=== PATIENT | female | born 1960 | race Caucasian/White ===

== ENCOUNTER 2017-07-12 00:38 | Emergency (ER) | payer OTHER, SELFPAY ==
[2017-07-12 00:39] VITALS: BP 141/87; PULSE 99; RESP 18; TEMP 36.4; O2SAT 96; BMI 19.0
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
[2017-07-12 01:25] VITALS: BP 112/76; PULSE 95; RESP 18; TEMP 36.7; O2SAT 96
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
== END 2017-07-12 01:36 ==
LOC: ER 01:36
PROVIDERS: Emergency Provider Emergency Medicine
DX: Z02.89 Encounter for other administrative examinations (principal); F17.210 Nicotine dependence, cigarettes, uncomplicated; V89.0XXA Person injured in unspecified motor-vehicle accident, nontraffic, initial encounter
CPT/HCPCS: 99283

== ENCOUNTER 2018-01-04 09:26 | Inpatient (IN) ==
--- NOTE | 2018-01-04 09:11 | Emergency Department Note ---
ED Disposition Clinical Impression: Pneumonia, COPD (chronic obstructive pulmonary disease) Disposition: Still a Patient Condition on Discharge: Good - Critical Care Critical Care Time: No Attestation: On , the high probability of a clinically significant, sudden or life threatening deterioration of the following system(s) required my full and direct attention, intervention and personal management. The time I documented below is in addition to time spent performing reported procedures but includes the following listed in this critical care notation. Medical Decision Making - Medical Records MR Comment: pt with BLL pneumonia. stats 89 90 at rest, admit. [id number] call out to service MD Suze Montemayor Inquiry Pt receiving controlled substance: No Vital Signs: 01/04/18 08:54 01/04/18 09:10 01/04/18 09:54 Pulse Rate 66 Pulse Rate [Right Radial] 84 89 Respiratory Rate 18 Blood Pressure [Right Arm] 101/59 106/66 Blood Pressure Mean [Right Arm] 73 79 Blood Pressure Source [Right Arm] Automatic Cuff Automatic Cuff Blood Pressure Position [Right Arm] Sitting Sitting 02 Sat by Pulse Oximetry 97 93 L Oxygen Delivery Method Room Air Room Air 01/04/18 10:05 Pulse Rate Pulse Rate [Right Radial] 94 H Respiratory Rate Blood Pressure [Right Arm] 108/66 Blood Pressure Mean [Right Arm] 80 Blood Pressure Source [Right Arm] Automatic Cuff Blood Pressure Position [Right Arm] Sitting 02 Sat by Pulse Oximetry 93 L Oxygen Delivery Method Room Air - Lab Data Lab Results 01/04/18 08:55: WBC 15.2 H, RBC 4.11 L, Hgb 11.7 L, Hct 36.7 L, MCV 89.2, MCH 28.5, MCHC 32.0, RDW 14.6, Plt Count 201, MPV 7.6, Neut % (Auto) 86.6 H, Lymph % (Auto) 8.6 L, [place] % (Auto) 4.4, Eos % (Auto) 0.1, Baso % (Auto) 0.3, Neut # (Auto) 13.2 H, Lymph # (Auto) 1.3, [place] # (Auto) 0.7, Eos # (Auto) 0.0, Baso # (Auto) 0.0, Total Counted 100, Neutrophils % (Manual) 88 H, Lymphocytes % (Manual) 10, Monocytes % (Manual) 2, Platelet Estimate Normal, RBC Morphology Normal 01/04/18 08:55: Sodium 140, Potassium 3.3 L, Chloride 104, Carbon Dioxide 27, Anion Gap 12.3, BUN 13, Creatinine 0.95, Estimated Creat Clear 60, Estimated GFR 60, Est GFR ( Amer) 73, Glucose 100, Calcium 8.6, Troponin I < 0.02 01/04/18 08:55: Lactate 0.7 Result diagrams: 01/04/18 08:55 01/04/18 08:55 Orders (Tests/Meds): ED MEDICATIONS Generic Name Dose Route Start Last Admin Trade Name Freq PRN Reason Stop Dose Admin Levofloxacin/Dextrose 750 mg in 150 mls @ 100 mls/hr 01/04/18 11:30 Levofloxacin 750mg/150ml Premix IV 01/18/18 11:29 Q24H ALEX Protocol Discontinued Medications Generic Name Dose Route Start Last Admin Trade Name Freq PRN Reason Stop Dose Admin Albuterol/Ipratropium 3 ml 01/04/18 09:06 01/04/18 09:10 Duoneb 3ml [facility] 01/04/18 09:07 3 ml ONCE ONE Administration Albuterol/Ipratropium 3 ml 01/04/18 09:07 01/04/18 09:20 Duoneb 3ml [facility] 01/04/18 09:08 3 ml ONCE ONE Administration Methylprednisolone Sodium Succinate 125 mg 01/04/18 09:05 01/04/18 09:16 Solu-Medrol 125mg/2ml Vial IV 01/04/18 09:06 125 mg ONCE ONE Administration Potassium Chloride 40 meq 01/04/18 11:28 Klor-Con 20meq Tablet PO 01/04/18 11:29 ONCE ONE ORDERS Category Date Time Status Flu A&B Antigens, Rapid [Rapid Influenza A&B Antigens] Lab 01/04/18 09:11 Ordered Stat UA [Urinalysis and Microscopic] Stat Lab 01/04/18 09:06 Ordered Blood Culture Stat Micro 01/04/18 08:55 Received - ECG Data Tracing #1 ER EKG read by myself shows normal sinus rhythm rate of 86, normal axis, no QT prolongation, nonspecific EKG General Adult HPI - General Chief complaint: Shortness of Breath/Dyspnea Stated complaint: soa Time Seen by Provider: 01/04/18 09:08 Mode of Arrival: EMS Limitations: No Limitations Description of Symptoms (Recalled from ER Triage Doc. by RN): complaint of soa and pain with breathing for 1 month - History of Present Illness HPI narrative: Patient states she says shortness of breath for the past month she has a history of COPD. He complains of cough for the past several days productive of green and yellow phlegm and some feverishness she also states that she has had some right flank pain and that she has history of kidney stone and was worried that her kidney stones are acting up the right flank pain was mostly yesterday she states now that she has whole body ache moderate severity no radiation. - Related Data Home Medications Medication Instructions Recorded Confirmed No Known Home Medications 07/12/17 01/04/18 Allergies Allergy/AdvReac Type Severity Reaction Status Date / Time No Known Allergies Allergy Verified 07/12/17 00:51 [facility] History I have reviewed the patient's past medical history: Yes Amputation: No Fractures: No - Social History Educational Level: Completed High School Smoking Status: Current every day smoker Tobacco Type: cigarettes Alcohol Intake: never Alcohol Intake Frequency:: holidays/special occasions only Substance Use Type: marijuana - Psychiatric History Expresses thoughts of harming self/others: None Suicide Plan Description: No Plan ROS Obtained: Yes All systems reviewed & no additional complaints Physical Exam General Appearance: Nontoxic Head: Normocephalic, without obvious abnormality, atraumatic. Eyes: conjunctiva/corneas clear ENT: Mucous membranes moist. Neck: No jugular venous distention. Cardiac: regular rate and rhythm Lungs: Wheezes rhonchi to auscultation bilaterally Abdomen: Nontender, Nondistended, positive bowel sounds, no rebound : right CVA tenderness Extremities: no edema Musculoskeletal: No chest wall tenderness Skin: No rashes or lesions to exposed skin. Neurologic: Alert. No gross focal deficits Psychiatric: Mildly anxious affect - General General appearance: alert - Respiratory Respiratory exam: Present: wheezes - Cardiovascular Cardiovascular exam: Present: regular rate - Neurological Exam Neurological exam: Present: alert
[2018-01-04 09:25] LABS: Basophils % 0.3 % (0.1-2.0); Eosinophils % 0.1 % (0.1-12.0); Hematocrit 36.7 % (37.0-47.0); Hemoglobin 11.7 g/dL (12.2-16.2); Lymphocytes # 1.3 K/mm3 (0.7-4.5); Lymphocytes % 8.6 K/mm3 (10-50); Mean Corpuscular Hemoglobin 28.5 pg (27.0-31.2); Mean Corpuscular Volume 89.2 fl (81-99); Mean Platelet Volume 7.6 fl (7.4-10.4); Monocytes # 0.7 K/mm3 (0.1-1.0); Monocytes % 4.4 % (1.7-9.3); Neutrophils # 13.2 K/mm3 (1.8-7.8); Neutrophils % 86.6 % (37.0-80.0); Platelet Count 201 K/mm3 (142-424); Red Blood Count 4.11 M/mm3 (4.20-5.40); Red Cell Distribution Width 14.6 % (11.5-17.5); White Blood Count 15.2 K/mm3 (4.8-10.8)
[2018-01-04 09:36] LABS: Anion Gap 12.3 mEq/L (5-15); Blood Urea Nitrogen 13 mg/dL (7-18); Calcium 8.6 mg/dL (8.5-10.1); Carbon Dioxide 27 mmol/L (21.0-32.0); Chloride 104 mmol/L (98-107); Glucose 100 mg/dL (74-106); Potassium 3.3 mmoL/L (3.5-5.1); Sodium 140 mmol/L (136-145)
[2018-01-04 09:43] LABS: Lymphocytes % 10 % (10-50); Monocytes % 2 % (2-9); Neutrophils % 88 % (42-76); Total Cells Counted 100
[2018-01-04 09:44] LABS: RBC Morphology Normal
--- NOTE | 2018-01-04 12:22 | Pharmacy Consult Notes ---
[facility] Pharmacy VTE Monitoring - Patient Demographics Admission date: 01/04/18 Report Date: 01/04/18 Time: 12:21 Allergies/Adverse Reactions: Patient Allergies No Known Allergies Allergy (Verified 07/12/17 00:51) Height: 1.8 m Weight: 58.967 kg Patient Problems: Current Active Problems Pneumonia (Acute) COPD (chronic obstructive pulmonary disease) (Acute) - VTE Risk Labs: VTE Related Lab Results Hgb 11.7 g/dL (12.2-16.2) L 01/04/18 08:55 Hct 36.7 % (37.0-47.0) L 01/04/18 08:55 Plt Count 201 K/mm3 (142-424) 01/04/18 08:55 BUN 13 mg/dL (7-18) 01/04/18 08:55 Creatinine 0.95 mg/dL (0.55-1.02) 01/04/18 08:55 Estimated Creat Clear 60 mL/min (0-300) 01/04/18 08:55 Clinical Trial Participant: No - Prophylaxis VTE Prophylaxis Ordered?: Yes Types of VTE Prophylaxis: TEDS Knee High
--- NOTE | 2018-01-04 14:10 | History & Physical Report ---
*Admission Date: 01/04/18 *Chief complaint: SOA, chest and back pain, abdominal pain *History of present illness: Ms. Turner is a 57yo female who states she has been feeling poorly for 1 month. She does not currently have a PCP but does have an appt scheduled with Dr. Carr. She has had shortness of breath for the past month and has a history of COPD. She then developed a cough for the past several days productive of green and yellow phlegm and and began running fevers. She also states that she has had some right flank pain and diffuse abdominal pain. She states her was in a coma for pneumonia and when he woke up, he left her. She states she has been very upset and thought her abdominal pain was d/t her anxiety. She has been unable to eat or drink and has had nausea and vomiting off and on. She states she has probably lost 20lb in the past month. She began feeling so poorly she called 911 to bring her to the ER. She is upset because she wants something for pain. She states a friend gave her a Tylenol #3 yesterday and that is the only thing that's helped. She was found to have pneumonia in the ER and will be admitted for further evaluation and treatment. [facility] History Medical History: Reports:: Cancer (cervical), Chronic Obstructive Pulmonary Disease (COPD), Kidney Stones Other Surgeries: Yes: Cancer Surgery, , Ureter Stent Amputation: No Fractures: No Comment: Cone bx of cervical cancer - *Social History Educational Level: Completed High School Smoking Status: Current every day smoker Tobacco Type: cigarettes Alcohol Intake: never Alcohol Intake Frequency:: holidays/special occasions only Substance Use Type: marijuana - Psychiatric History Expresses thoughts of harming self/others: None Suicide Plan Description: No Plan *Family Hx:: Cancer, Diabetes, Hyperlipidemia, Hypertension Review of Systems - Constitutional Reports body ache(s), Reports chills, Reports fatigue, Reports fever(s), Reports weight loss - Eyes Denies blurry vision, Denies double vision - ENT Reports nasal congestion, Reports sore throat - *Cardiovascular Reports chest pain, Denies rapid, pounding, or irregular heartbeat - *Respiratory Reports chest congestion, Reports cough, Reports shortness of breath, Reports wheezing - *Gastrointestinal Reports abdominal pain, Reports loose stools, Reports nausea, Reports vomiting - *Genitourinary Denies difficulty urinating, Denies painful urination - *Musculoskeletal Reports back pain, Denies joint pain - *Neurologic Reports headache(s), Reports dizziness, Reports weakness Meds Home Medications Medication Instructions Recorded Confirmed Type No Known Home Medications 07/12/17 01/04/18 History Allergies Allergy/AdvReac Type Severity Reaction Status Date / Time No Known Allergies Allergy Verified 07/12/17 00:51 Exam Vital signs and Labs for Last 24 Hours: Temp Pulse Resp BP Pulse Ox 97.6 F 76 20 101/63 96 01/04/18 13:30 01/04/18 13:30 01/04/18 13:30 01/04/18 13:30 01/04/18 13:30 Laboratory Results - last 24 hr 01/04/18 08:55: WBC 15.2 H, RBC 4.11 L, Hgb 11.7 L, Hct 36.7 L, MCV 89.2, MCH 28.5, MCHC 32.0, RDW 14.6, Plt Count 201, MPV 7.6, Neut % (Auto) 86.6 H, Lymph % (Auto) 8.6 L, [place] % (Auto) 4.4, Eos % (Auto) 0.1, Baso % (Auto) 0.3, Neut # (Auto) 13.2 H, Lymph # (Auto) 1.3, [place] # (Auto) 0.7, Eos # (Auto) 0.0, Baso # (Auto) 0.0, Total Counted 100, Neutrophils % (Manual) 88 H, Lymphocytes % (Manual) 10, Monocytes % (Manual) 2, Platelet Estimate Normal, RBC Morphology Normal 01/04/18 08:55: Sodium 140, Potassium 3.3 L, Chloride 104, Carbon Dioxide 27, Anion Gap 12.3, BUN 13, Creatinine 0.95, Estimated Creat Clear 60, Estimated GFR 60, Est GFR ( Amer) 73, Glucose 100, Calcium 8.6, Troponin I < 0.02 01/04/18 08:55: Lactate 0.7 I & O for Last 24 hours: Intake & Output 01/02/18 01/03/18 01/04/18 01/05/18 11:59 11:59 11:59 11:59 Intake Total 1000 / 1000 Balance 1000 / 1000 Weight 130 lb 134 lb - Constitutional agitated - *Routine HEENT Exam Head: Present: normocephalic Eye: Present: EOMI, PERRL ENT: Present: mucous membranes dry - *Routine Neck Exam Present: supple, full ROM. Absent: carotid bruit - *Routine Respiratory Exam Present: decreased breath sounds (in bilateral bases, faint rhonchi in the right base) - *Routine Cardiovascular Exam Present: RRR - *Routine Abdominal Exam Present: soft, normoactive bowel sounds, tenderness (diffusely ttp) - *Routine Extremities Exam Absent: cyanosis, clubbing, edema - *Routine Skin Exam Present: warm. Absent: rash - *Routine Neurological Exam Present: alert, oriented X3 - Routine Psychiatric Exam Present: anxious H&P: Result - Impressions CXR - Bilateral pneumonia with emphysema/COPD CT abd/pelvis 1. Bilateral pneumonia in the lung bases. 2. Nonobstructing bilateral renal calculi. 3. There are multiple unopacified bowel loops present within the abdomen/pelvis which could obscure or mimic pathology. If symptoms persists, consider repeating exam with IV and oral contrast administration 4. Nonrotation of the bowel with small bowel on the right and large bowel On the left with constipation Assessment and Plan (1) Pneumonia Current visit: Yes Status: Acute Category: Medical Code(s): J18.9 - Pneumonia, unspecified organism (2) Abdominal pain Current visit: Yes Status: Acute Category: Medical Code(s): R10.9 - Unspecified abdominal pain (3) Nausea & vomiting Current visit: Yes Status: Acute Category: Medical Code(s): R11.2 - Nausea with vomiting, unspecified (4) Weight loss Current visit: Yes Status: Acute Category: Medical Code(s): R63.4 - Abnormal weight loss (5) COPD (chronic obstructive pulmonary disease) Current visit: Yes Status: Chronic Category: Medical Code(s): J44.9 - Chronic obstructive pulmonary disease, unspecified (6) Hypokalemia Current visit: Yes Status: Acute Category: Medical Code(s): E87.6 - Hypokalemia (7) Diarrhea Current visit: Yes Status: Acute Category: Medical Code(s): R19.7 - Diarrhea, unspecified - Assessment and plan all Dx Assessment and Plan for all problems:: Pt has been started on abx and morphine for pain. Will start on nebs as well some potassium and will get a sputum cx and diarrhea panel.
[2018-01-05 06:20] LABS: Basophils % 0.2 % (0.1-2.0); Lymphocytes # 1.4 K/mm3 (0.7-4.5); Monocytes # 0.5 K/mm3 (0.1-1.0)
[2018-01-05 06:30] LABS: Albumin Level 2.4 gm/dL (3.4-5.0); Albumin/Globulin Ratio 0.7 (1.1-1.8); Anion Gap 11.8 mEq/L (5-15); Bilirubin,Total 0.3 mg/dL (0.2-1.0); Calcium 8.5 mg/dL (8.5-10.1); Globulin 3.5 gm/dl (1.3-3.2); Potassium 3.8 mmoL/L (3.5-5.1); Total Protein,Serum 5.9 gm/dL (6.4-8.2)
[2018-01-05 06:34] LABS: Eosinophils % 0.3 % (0.1-12.0); Hematocrit 32.8 % (37.0-47.0); Lymphocytes % 13.3 K/mm3 (10-50); Mean Corpuscular HGB Conc 31.5 g/dL (31.8-35.4); Mean Corpuscular Hemoglobin 28.8 pg (27.0-31.2); Mean Corpuscular Volume 91.6 fl (81-99); Mean Platelet Volume 8.2 fl (7.4-10.4); Monocytes % 5.2 % (1.7-9.3); Neutrophils # 8.3 K/mm3 (1.8-7.8); Neutrophils % 81.1 % (37.0-80.0); Platelet Count 172 K/mm3 (142-424); Red Blood Count 3.58 M/mm3 (4.20-5.40); Red Cell Distribution Width 14.8 % (11.5-17.5); White Blood Count 10.2 K/mm3 (4.8-10.8)
[2018-01-05 06:36] LABS: Hemoglobin 10.3 g/dL (12.2-16.2)
--- NOTE | 2018-01-05 08:26 | Progress Note ---
Internal Medicine - PN: Subj *Date: 01/05/18 *Time: 08:22 Interval history: Patient states she is feeling slightly better this morning. She still has a cough but it is no longer productive. She is still having pain in her right mid back. She slept off and on throughout the night. She is trying to eat this morning but states she has become nauseated. Exam Vital signs and Labs for Last 24 Hours: Temp Pulse Resp BP Pulse Ox 98.0 F 71 20 97/61 91 L 01/05/18 07:54 01/05/18 07:54 01/05/18 07:54 01/05/18 07:54 01/05/18 07:54 Laboratory Results - last 24 hr 01/04/18 08:55: WBC 15.2 H, RBC 4.11 L, Hgb 11.7 L, Hct 36.7 L, MCV 89.2, MCH 28.5, MCHC 32.0, RDW 14.6, Plt Count 201, MPV 7.6, Neut % (Auto) 86.6 H, Lymph % (Auto) 8.6 L, [place] % (Auto) 4.4, Eos % (Auto) 0.1, Baso % (Auto) 0.3, Neut # (Auto) 13.2 H, Lymph # (Auto) 1.3, [place] # (Auto) 0.7, Eos # (Auto) 0.0, Baso # (Auto) 0.0, Total Counted 100, Neutrophils % (Manual) 88 H, Lymphocytes % (Manual) 10, Monocytes % (Manual) 2, Platelet Estimate Normal, RBC Morphology Normal 01/04/18 08:55: Sodium 140, Potassium 3.3 L, Chloride 104, Carbon Dioxide 27, Anion Gap 12.3, BUN 13, Creatinine 0.95, Estimated Creat Clear 60, Estimated GFR 60, Est GFR ( Amer) 73, Glucose 100, Calcium 8.6, Troponin I < 0.02 01/04/18 08:55: Lactate 0.7 01/04/18 15:52: Influenza Type A Ag Negative, Influenza Type B Ag Negative 01/05/18 05:34: WBC 10.2 D, RBC 3.58 L, Hgb 10.3 L D, Hct 32.8 L, MCV 91.6, MCH 28.8, MCHC 31.5 L, RDW 14.8, Plt Count 172, MPV 8.2, Neut % (Auto) 81.1 H, Lymph % (Auto) 13.3, [place] % (Auto) 5.2, Eos % (Auto) 0.3, Baso % (Auto) 0.2, Neut # (Auto) 8.3 H, Lymph # (Auto) 1.4, [place] # (Auto) 0.5, Eos # (Auto) 0.0, Baso # (Auto) 0.0 01/05/18 05:34: Sodium 142, Potassium 3.8, Chloride 108 H, Carbon Dioxide 26, Anion Gap 11.8, BUN 16, Creatinine 0.89, Estimated Creat Clear 66, Estimated GFR 65, Est GFR ( Amer) 79, Glucose 97, Calcium 8.5, Total Bilirubin 0.3, AST 15, ALT 43, Alkaline Phosphatase 285 H, Total Protein 5.9 L, Albumin 2.4 L, Globulin 3.5 H, Albumin/Globulin Ratio 0.7 L I & O for Last 24 hours: Intake & Output 01/02/18 01/03/18 01/04/18 01/05/18 11:59 11:59 11:59 11:59 Intake Total 2455 / 2455 Output Total 300 / 300 Balance 2155 / 2155 Weight 130 lb 134 lb Microbiology Reports for the Last 24 Hours: Microbiology 01/04/18 18:45 Sputum - Expectorated Sputum Gram Stain - Final 01/04/18 18:45 Sputum - Expectorated Sputum Sputum Culture - Preliminary - Constitutional no acute distress - *Routine Respiratory Exam Present: rhonchi, crackles (bibasilar) - *Routine Cardiovascular Exam Present: RRR - *Routine Abdominal Exam Present: soft, normoactive bowel sounds, tenderness (diffuse) - *Routine Extremities Exam Absent: edema Assessment and Plan (1) Pneumonia Current visit: Yes Status: Acute Category: Medical Code(s): J18.9 - Pneumonia, unspecified organism (2) Abdominal pain Current visit: Yes Status: Acute Category: Medical Code(s): R10.9 - Unspecified abdominal pain (3) Nausea & vomiting Current visit: Yes Status: Acute Category: Medical Code(s): R11.2 - Nausea with vomiting, unspecified (4) Weight loss Current visit: Yes Status: Acute Category: Medical Code(s): R63.4 - Abnormal weight loss (5) COPD (chronic obstructive pulmonary disease) Current visit: Yes Status: Chronic Category: Medical Code(s): J44.9 - Chronic obstructive pulmonary disease, unspecified (6) Hypokalemia Current visit: Yes Status: Acute Category: Medical Code(s): E87.6 - Hypokalemia (7) Diarrhea Current visit: Yes Status: Acute Category: Medical Code(s): R19.7 - Diarrhea, unspecified - Assessment and plan all Dx Assessment and Plan for all problems:: Patient's white blood cell count has normalized as has her potassium. Will start on some Zofran for nausea today. Will await sputum and blood cultures.
--- NOTE | 2018-01-06 08:21 | Progress Note ---
Internal Medicine - PN: Subj *Date: 01/06/18 *Time: 08:17 Interval history: The patient is sitting up in bed watching tv. She reports she did not sleep well last night, declined hs trazodone dose due to side effects when she has taken it in the past. She denies any pain, continues with NPC. She is tearful when relating recent events concerning her . She reports having little appetite and did not eat any breakfast this morning. Exam Vital signs and Labs for Last 24 Hours: Temp Pulse Resp BP Pulse Ox 97.3 F L 74 18 101/56 100 01/06/18 08:03 01/06/18 08:03 01/06/18 08:03 01/06/18 08:03 01/06/18 08:03 I & O for Last 24 hours: Intake & Output 01/03/18 01/04/18 01/05/18 01/06/18 11:59 11:59 11:59 11:59 Intake Total 2455 / 2455 940 / 940 Output Total 300 / 300 100 / 100 Balance 2155 / 2155 840 / 840 Weight 130 lb 134 lb Microbiology Reports for the Last 24 Hours: Microbiology 01/04/18 18:45 Sputum - Expectorated Sputum Gram Stain - Final 01/04/18 18:45 Sputum - Expectorated Sputum Sputum Culture - Preliminary - Constitutional no acute distress Comments: tearful at times - *Routine HEENT Exam Head: Present: normocephalic Eye: Present: PERRL ENT: Present: mucous membranes moist - *Routine Respiratory Exam Comments: CTAB A&P - *Routine Cardiovascular Exam Present: RRR - *Routine Abdominal Exam Present: soft, normoactive bowel sounds. Absent: tenderness, distended, guarding, rigid, organomegaly, mass - *Routine Extremities Exam Present: full ROM, pulses intact. Absent: edema, calf tenderness - *Routine Neurological Exam Present: alert, oriented X3, moving all extremities, normal speech Assessment and Plan (1) Pneumonia Current visit: Yes Status: Acute Category: Medical Code(s): J18.9 - Pneumonia, unspecified organism (2) Abdominal pain Current visit: Yes Status: Acute Category: Medical Code(s): R10.9 - Unspecified abdominal pain (3) Nausea & vomiting Current visit: Yes Status: Acute Category: Medical Code(s): R11.2 - Nausea with vomiting, unspecified (4) Weight loss Current visit: Yes Status: Acute Category: Medical Code(s): R63.4 - Abnormal weight loss (5) COPD (chronic obstructive pulmonary disease) Current visit: Yes Status: Chronic Category: Medical Code(s): J44.9 - Chronic obstructive pulmonary disease, unspecified (6) Hypokalemia Current visit: Yes Status: Acute Category: Medical Code(s): E87.6 - Hypokalemia (7) Diarrhea Current visit: Yes Status: Acute Category: Medical Code(s): R19.7 - Diarrhea, unspecified - Assessment and plan all Dx Assessment and Plan for all problems:: Continue current care. Further per Dr. Duarte.
[2018-01-07 06:59] LABS: Basophils % 0.6 % (0.1-2.0); Eosinophils # 0.1 K/mm3 (0.0-0.4); Eosinophils % 1.9 % (0.1-12.0); Hematocrit 34.8 % (37.0-47.0); Hemoglobin 10.7 g/dL (12.2-16.2); Lymphocytes # 1.5 K/mm3 (0.7-4.5); Lymphocytes % 26.1 K/mm3 (10-50); Mean Corpuscular HGB Conc 30.8 g/dL (31.8-35.4); Mean Corpuscular Hemoglobin 28.3 pg (27.0-31.2); Mean Corpuscular Volume 91.9 fl (81-99); Mean Platelet Volume 7.8 fl (7.4-10.4); Monocytes # 0.4 K/mm3 (0.1-1.0); Monocytes % 7.2 % (1.7-9.3); Neutrophils # 3.6 K/mm3 (1.8-7.8); Neutrophils % 64.2 % (37.0-80.0); Platelet Count 235 K/mm3 (142-424); Red Blood Count 3.79 M/mm3 (4.20-5.40); Red Cell Distribution Width 14.5 % (11.5-17.5); White Blood Count 5.6 K/mm3 (4.8-10.8)
[2018-01-07 07:04] LABS: Calcium 8.5 mg/dL (8.5-10.1)
--- NOTE | 2018-01-07 08:35 | Progress Note ---
Internal Medicine - PN: Subj *Date: 01/07/18 *Time: 08:32 Interval history: "I feel a little better." Still sad over recent psychosocial events. Slept some last night. Still with cough that is a bit more productive. Ribs are "sore". Exam Vital signs and Labs for Last 24 Hours: Temp Pulse Resp BP Pulse Ox 97.5 F L 85 20 113/81 94 L 01/07/18 07:40 01/07/18 07:40 01/07/18 07:40 01/07/18 07:40 01/07/18 08:00 Laboratory Results - last 24 hr 01/07/18 06:20: WBC 5.6 D, RBC 3.79 L, Hgb 10.7 L, Hct 34.8 L, MCV 91.9, MCH 28.3, MCHC 30.8 L, RDW 14.5, Plt Count 235 D, MPV 7.8, Neut % (Auto) 64.2, Lymph % (Auto) 26.1, [place] % (Auto) 7.2, Eos % (Auto) 1.9, Baso % (Auto) 0.6, [place] # (Auto) 3.6, Lymph # (Auto) 1.5, [place] # (Auto) 0.4, Eos # (Auto) 0.1, Baso # (Auto) 0.0 01/07/18 06:20: Sodium 143, Potassium 4.0, Chloride 107, Carbon Dioxide 30, Anion Gap 10.0, BUN 11 D, Creatinine 0.80, Estimated Creat Clear 74, Estimated GFR 74, Est GFR ( Amer) 89, Glucose 94, Calcium 8.5 I & O for Last 24 hours: Intake & Output 01/04/18 01/05/18 01/06/18 01/07/18 11:59 11:59 11:59 11:59 Intake Total 2455 / 2455 1090 / 1090 2264 / 2264 Output Total 300 / 300 100 / 100 100 / 100 Balance 2155 / 2155 990 / 990 2164 / 2164 Weight 130 lb 134 lb 133 lb 15.987 oz Microbiology Reports for the Last 24 Hours: Microbiology 01/04/18 18:45 Sputum - Expectorated Sputum Gram Stain - Final 01/04/18 18:45 Sputum - Expectorated Sputum Sputum Culture - Preliminary Gram Positive Cocci 01/04/18 08:55 Blood Blood Culture - Preliminary NO GROWTH AFTER 48 HOURS 01/04/18 08:55 Blood Blood Culture - Preliminary NO GROWTH AFTER 48 HOURS Radiology Reports for the Last 24 Hours: CXR shows slight improvement in bilateral lower lobe pneumonia - Constitutional Comments: alert, no resp distress. Congested cough. - *Routine Respiratory Exam Comments: coarse BS with bilateral rhochi and few wheezes - *Routine Cardiovascular Exam Present: RRR Assessment and Plan (1) Pneumonia Current visit: Yes Status: Acute Category: Medical Code(s): J18.9 - Pneumonia, unspecified organism (2) Abdominal pain Current visit: Yes Status: Acute Category: Medical Code(s): R10.9 - Unspecified abdominal pain (3) Nausea & vomiting Current visit: Yes Status: Acute Category: Medical Code(s): R11.2 - Nausea with vomiting, unspecified (4) Weight loss Current visit: Yes Status: Acute Category: Medical Code(s): R63.4 - Abnormal weight loss (5) COPD (chronic obstructive pulmonary disease) Current visit: Yes Status: Chronic Category: Medical Code(s): J44.9 - Chronic obstructive pulmonary disease, unspecified (6) Hypokalemia Current visit: Yes Status: Acute Category: Medical Code(s): E87.6 - Hypokalemia (7) Diarrhea Current visit: Yes Status: Acute Category: Medical Code(s): R19.7 - Diarrhea, unspecified (8) Depression with anxiety Current visit: Yes Status: Acute Category: Medical Code(s): F41.8 - Other specified anxiety disorders - Assessment and plan all Dx Assessment and Plan for all problems:: Clinically with some improvement. WBC improved and K+ is normal. Sputum C&S showing Gm + cocci. Will continue current antibiotic pending final cultures. Will give dose of Solumedrol. Encourage OOB activity.
--- NOTE | 2018-01-08 09:53 | Progress Note ---
Internal Medicine - PN: Subj *Date: 01/08/18 *Time: 09:51 Interval history: From a respiratory perspective the patient is feeling much better. Her cough is better. She is breathing easier. Her chest x-ray shows improvement. She talked about her difficulty with her nerves. Her leaving her has been very difficult for her to deal with. She has seen Fina Agarwal in consultation. She asked about medication. Exam Vital signs and Labs for Last 24 Hours: Temp Pulse Resp BP Pulse Ox 97.4 F L 91 H 18 121/72 94 L 01/08/18 08:00 01/08/18 08:00 01/08/18 08:00 01/08/18 08:00 01/08/18 08:00 I & O for Last 24 hours: Intake & Output 01/05/18 01/06/18 01/07/18 01/08/18 11:59 11:59 11:59 11:59 Intake Total 2455 / 2455 1090 / 1090 2414 / 2414 2463 / 2463 Output Total 300 / 300 100 / 100 100 / 100 1500 / 1500 Balance 2155 / 2155 990 / 990 2314 / 2314 963 / 963 Weight 134 lb 133 lb 15.987 oz Microbiology Reports for the Last 24 Hours: Microbiology 01/04/18 18:45 Sputum - Expectorated Sputum Gram Stain - Final 01/04/18 18:45 Sputum - Expectorated Sputum Sputum Culture - Final Streptococcus pneumoniae - Constitutional no acute distress - *Routine HEENT Exam Head: Present: normocephalic Eye: Present: EOMI, PERRL ENT: Present: mucous membranes moist - *Routine Respiratory Exam Comments: Moving air much better. She has better air movement at the bases though there is still some decrease. Only a few rales are heard. No leg edema. - *Routine Extremities Exam Absent: edema Assessment and Plan (1) Pneumonia Current visit: Yes Status: Acute Category: Medical Code(s): J18.9 - Pneumonia, unspecified organism (2) Abdominal pain Current visit: Yes Status: Acute Category: Medical Code(s): R10.9 - Unspecified abdominal pain (3) Nausea & vomiting Current visit: Yes Status: Acute Category: Medical Code(s): R11.2 - Nausea with vomiting, unspecified (4) Weight loss Current visit: Yes Status: Acute Category: Medical Code(s): R63.4 - Abnormal weight loss (5) COPD (chronic obstructive pulmonary disease) Current visit: Yes Status: Chronic Category: Medical Code(s): J44.9 - Chronic obstructive pulmonary disease, unspecified (6) Hypokalemia Current visit: Yes Status: Acute Category: Medical Code(s): E87.6 - Hypokalemia (7) Diarrhea Current visit: Yes Status: Acute Category: Medical Code(s): R19.7 - Diarrhea, unspecified (8) Depression with anxiety Current visit: Yes Status: Acute Category: Medical Code(s): F41.8 - Other specified anxiety disorders - Assessment and plan all Dx Assessment and Plan for all problems:: Add sertraline 25 mg p.o. daily and lorazepam 0.5 mg p.o. twice daily scheduled.
--- NOTE | 2018-01-08 13:42 | Progress Note ---
Internal Medicine - PN: Subj *Date: 01/08/18 *Time: 13:42 Exam Vital signs and Labs for Last 24 Hours: Temp Pulse Resp BP Pulse Ox 97.8 F 89 18 112/81 95 01/08/18 11:08 01/08/18 12:24 01/08/18 11:08 01/08/18 11:08 01/08/18 11:08 I & O for Last 24 hours: Intake & Output 01/05/18 01/06/18 01/07/18 01/08/18 23:59 23:59 23:59 23:59 Intake Total 1370 / 1370 1110 / 1110 3408 / 3408 1349 / 1349 Output Total 100 / 100 100 / 100 1000 / 1000 500 / 500 Balance 1270 / 1270 1010 / 1010 2408 / 2408 849 / 849 Weight 60.781 kg Microbiology Reports for the Last 24 Hours: Microbiology 01/04/18 18:45 Sputum - Expectorated Sputum Gram Stain - Final 01/04/18 18:45 Sputum - Expectorated Sputum Sputum Culture - Final Streptococcus pneumoniae Assessment and Plan (1) Pneumonia Current visit: Yes Status: Acute Category: Medical Code(s): J18.9 - Pneumonia, unspecified organism (2) Abdominal pain Current visit: Yes Status: Acute Category: Medical Code(s): R10.9 - Unspecified abdominal pain (3) Nausea & vomiting Current visit: Yes Status: Acute Category: Medical Code(s): R11.2 - Nausea with vomiting, unspecified (4) Weight loss Current visit: Yes Status: Acute Category: Medical Code(s): R63.4 - A bnormal weight loss (5) COPD (chronic obstructive pulmonary disease) Current visit: Yes Status: Chronic Category: Medical Code(s): J44.9 - Chronic obstructive pulmonary disease, unspecified (6) Hypokalemia Current visit: Yes Status: Acute Category: Medical Code(s): E87.6 - Hypokalemia (7) Diarrhea Current visit: Yes Status: Acute Category: Medical Code(s): R19.7 - Diarrhea, unspecified (8) Depression with anxiety Current visit: Yes Status: Acute Category: Medical Code(s): F41.8 - Other specified anxiety disorders The patient's infection will respond to the chosen ABx?: Yes Is the patient receiving the right drug, dose, and route?: Yes Could a more targeted ABx be ordered?: No
[2018-01-09 05:36] LABS: Basophils % 0.8 % (0.1-2.0); Eosinophils # 0.1 K/mm3 (0.0-0.4); Eosinophils % 1.8 % (0.1-12.0); Hematocrit 35.4 % (37.0-47.0); Hemoglobin 11.1 g/dL (12.2-16.2); Lymphocytes # 1.1 K/mm3 (0.7-4.5); Lymphocytes % 25.9 K/mm3 (10-50); Mean Corpuscular HGB Conc 31.3 g/dL (31.8-35.4); Mean Corpuscular Hemoglobin 28.7 pg (27.0-31.2); Mean Corpuscular Volume 91.6 fl (81-99); Mean Platelet Volume 7.2 fl (7.4-10.4); Monocytes # 0.3 K/mm3 (0.1-1.0); Monocytes % 6.7 % (1.7-9.3); Neutrophils # 2.8 K/mm3 (1.8-7.8); Neutrophils % 64.8 % (37.0-80.0); Platelet Count 232 K/mm3 (142-424); Red Blood Count 3.87 M/mm3 (4.20-5.40); Red Cell Distribution Width 14.3 % (11.5-17.5); White Blood Count 4.3 K/mm3 (4.8-10.8)
--- NOTE | 2018-01-09 08:06 | Progress Note ---
Internal Medicine - PN: Subj *Date: 01/09/18 *Time: 07:55 Interval history: Patient states she is extremely upset. A new family issue has presented itself and she does not know what to do. She states medicine did help yesterday. She continues to have right lower, posterior rib cage pain. She has tried not to have pain medicine but did require some this morning. She continues to have nausea and requires Zofran. Sputum culture is positive for Streptococcus pneumoniae with intermediate c overage by the Levaquin which patient is on. Exam Vital signs and Labs for Last 24 Hours: Temp Pulse Resp BP Pulse Ox 98.0 F 79 16 123/73 95 01/09/18 04:00 01/09/18 05:58 01/09/18 04:00 01/09/18 04:00 01/09/18 04:00 Laboratory Results - last 24 hr 01/09/18 05:19: WBC 4.3 L, RBC 3.87 L, Hgb 11.1 L, Hct 35.4 L, MCV 91.6, MCH 28.7, MCHC 31.3 L, RDW 14.3, Plt Count 232, MPV 7.2 L, Neut % (Auto) 64.8, Lymph % (Auto) 25.9, [place] % (Auto) 6.7, Eos % (Auto) 1.8, Baso % (Auto) 0.8, Neut # (Auto) 2.8, Lymph # (Auto) 1.1, [place] # (Auto) 0.3, Eos # (Auto) 0.1, Baso # (Auto) 0.0 I & O for Last 24 hours: Intake & Output 01/06/18 01/07/18 01/08/18 01/09/18 11:59 11:59 11:59 11:59 Intake Total 1090 / 1090 2414 / 2414 2613 / 2613 2343 / 2343 Output Total 100 / 100 100 / 100 1500 / 1500 450 / 450 Balance 990 / 990 2314 / 2314 1113 / 1113 1893 / 1893 Weight 133 lb 15.987 oz Microbiology Reports for the Last 24 Hours: Microbiology 01/04/18 18:45 Sputum - Expectorated Sputum Gram Stain - Final 01/04/18 18:45 Sputum - Expectorated Sputum Sputum Culture - Final Streptococcus pneumoniae - Constitutional Comments: Sitting in a chair by the phone trying to contact family. She is crying and very upset. - *Routine Respiratory Exam Comments: Poor inspiratory effort. Congested cough when she does breathe deeply. Decreased breath sounds on the right. - *Routine Cardiovascular Exam Present: RRR - *Routine Abdominal Exam Present: soft, normoactive bowel sounds. Absent: tenderness - *Routine Extremities Exam Present: full ROM. Absent: edema - *Routine Neurological Exam Present: alert - Routine Psychiatric Exam Present: anxious Assessment and Plan (1) Pneumonia Current visit: Yes Status: Acute Category: Medical Code(s): J18.9 - Pneumonia, unspecified organism (2) Abdominal pain Current visit: Yes Status: Acute Category: Medical Code(s): R10.9 - Unspecified abdominal pain (3) Nausea & vomiting Current visit: Yes Status: Acute Category: Medical Code(s): R11.2 - Nausea with vomiting, unspecified (4) Weight loss Current visit: Yes Status: Acute Category: Medical Code(s): R63.4 - Abnormal weight loss (5) COPD (chronic obstructive pulmonary disease) Current visit: Yes Status: Chronic Category: Medical Code(s): J44.9 - Chronic obstructive pulmonary disease, unspecified (6) Hypokalemia Current visit: Yes Status: Acute Category: Medical Code(s): E87.6 - Hypokalemia (7) Diarrhea Current visit: Yes Status: Acute Category: Medical Code(s): R19.7 - Diarrhea, unspecified (8) Depression with anxiety Current visit: Yes Status: Acute Category: Medical Code(s): F41.8 - Other specified anxiety disorders - Assessment and plan all Dx Assessment and Plan for all problems:: Will discuss antibiotics, pain and anxiety management with Dr. Duarte. Continue with xu hodges.
--- NOTE | 2018-01-09 20:22 | Progress Note ---
Internal Medicine - PN: Subj *Date: 01/09/18 *Time: 20:21 Interval history: See CT scan. Will consult pulmonary. Exam Vital signs and Labs for Last 24 Hours: Temp Pulse Resp BP Pulse Ox 98.0 F 76 18 144/82 H 95 01/09/18 16:00 01/09/18 17:50 01/09/18 16:00 01/09/18 16:00 01/09/18 17:50 Laboratory Results - last 24 hr 01/09/18 05:19: WBC 4.3 L, RBC 3.87 L, Hgb 11.1 L, Hct 35.4 L, MCV 91.6, MCH 28.7, MCHC 31.3 L, RDW 14.3, Plt Count 232, MPV 7.2 L, Neut % (Auto) 64.8, Lymph % (Auto) 25.9, [place] % (Auto) 6.7, Eos % (Auto) 1.8, Baso % (Auto) 0.8, Neut # (Auto) 2.8, Lymph # (Auto) 1.1, [place] # (Auto) 0.3, Eos # (Auto) 0.1, Baso # (Auto) 0.0 I & O for Last 24 hours: Intake & Output 01/07/18 01/08/18 01/09/18 01/10/18 11:59 11:59 11:59 11:59 Intake Total 2414 / 2414 2613 / 2613 2733 / 2733 240 / 240 Output Total 100 / 100 1500 / 1500 450 / 450 Balance 2314 / 2314 1113 / 1113 2283 / 2283 240 / 240 Weight 133 lb 15.987 oz Microbiology Reports for the Last 24 Hours: Microbiology 01/04/18 08:55 Blood Blood Culture - Final NO GROWTH AFTER 5 DAYS 01/04/18 08:55 Blood Blood Culture - Final NO GROWTH AFTER 5 DAYS Assessment and Plan (1) Pneumonia Current visit: Yes Status: Acute Category: Medical Code(s): J18.9 - Pneumonia, unspecified organism (2) Abdominal pain Current visit: Yes Status: Acute Category: Medical Code(s): R10.9 - Unspecified abdominal pain (3) Nausea & vomiting Current visit: Yes Status: Acute Category: Medical Code(s): R11.2 - Nausea with vomiting, unspecified (4) Weight loss Current visit: Yes Status: Acute Category: Medical Code(s): R63.4 - Abnormal weight loss (5) COPD (chronic obstructive pulmonary disease) Current visit: Yes Status: Chronic Category: Medical Code(s): J44.9 - Chronic obstructive pulmonary disease, unspecified (6) Hypokalemia Current visit: Yes Status: Acute Category: Medical Code(s): E87.6 - Hypokalemia (7) Diarrhea Current visit: Yes Status: Acute Category: Medical Code(s): R19.7 - Diarrhea, unspecified (8) Depression with anxiety Current visit: Yes Status: Acute Category: Medical Code(s): F41.8 - Other specified anxiety disorders - Assessment and plan all Dx Assessment and Plan for all problems:: Consult. Add SoluMedrol
--- NOTE | 2018-01-10 07:54 | Progress Note ---
Internal Medicine - PN: Subj *Date: 01/10/18 *Time: 07:50 Interval history: Patient is periodically is sad. She alters with being mad and agitated and sad. This a.m. she is more tearful. She states that she did sleep some. She still has right lower rib cage pain. She does have a dry cough at times. She continues to have periodic nausea without vomiting. She had a hard stool this morning and feels like she is constipated. She did have some abdominal pain this morning prior to having the stool. Requests meds for this. She is eating and drinking poorly. She ambulates in the room without difficulty. Exam Vital signs and Labs for Last 24 Hours: Temp Pulse Resp BP Pulse Ox 98.3 F 78 16 132/74 95 01/10/18 04:24 01/10/18 05:55 01/10/18 04:24 01/10/18 04:24 01/10/18 04:24 I & O for Last 24 hours: Intake & Output 01/07/18 01/08/18 01/09/18 01/10/18 11:59 11:59 11:59 11:59 Intake Total 2414 / 2414 2613 / 2613 2733 / 2733 1931938 Output Total 100 / 100 1500 / 1500 450 / 450 Balance 2314 / 2314 1113 / 1113 2283 / 2283 1938 193 Weight 133 lb 15.987 oz Microbiology Reports for the Last 24 Hours: Microbiology 01/04/18 08:55 Blood Blood Culture - Final NO GROWTH AFTER 5 DAYS 01/04/18 08:55 Blood Blood Culture - Final NO GROWTH AFTER 5 DAYS Radiology Reports for the Last 24 Hours: CT of the chest 01/09/2018 IMPRESSION: 1. Centrilobular paraseptal emphysema with bullous changes in the lung apices. 2. There is bilateral bronchial and peribronchial thickening within the lower lobe bronchi occlusion or intraluminal filling of the right lower lobe bronchus on both sides just distal to the superior segmental bronchus with atelectasis and or infiltrate in the lung bases. This may very well represent inflammatory changes. Bronchoscopy may confirm. Patchy infiltrate also present within the lingula and right middle lobe. - Constitutional no acute distress Comments: Sitting up in the bed try to eat some breakfast. - *Routine Respiratory Exam Comments: Decreased inspiratory effort. Few scattered rhonchi. - *Routine Cardiovascular Exam Present: RRR - *Routine Abdominal Exam Present: tenderness. Absent: soft Comments: Hyperactive bowel sounds - *Routine Extremities Exam Absent: edema, calf tenderness - *Routine Neurological Exam Present: alert, oriented X3 - Routine Psychiatric Exam Present: depressed Comments: Tearful at times. Agitated at times. Assessment and Plan (1) Pneumonia Current visit: Yes Status: Acute Category: Medical Code(s): J18.9 - Pneumonia, unspecified organism (2) Abdominal pain Current visit: Yes Status: Acute Category: Medical Code(s): R10.9 - Unspecified abdominal pain (3) Nausea & vomiting Current visit: Yes Status: Acute Category: Medical Code(s): R11.2 - Nausea with vomiting, unspecified (4) Weight loss Current visit: Yes Status: Acute Category: Medical Code(s): R63.4 - Abnormal weight loss (5) COPD (chronic obstructive pulmonary disease) Current visit: Yes Status: Chronic Category: Medical Code(s): J44.9 - Chronic obstructive pulmonary disease, unspecified (6) Hypokalemia Current visit: Yes Status: Acute Category: Medical Code(s): E87.6 - Hypokalemia (7) Diarrhea Current visit: Yes Status: Acute Category: Medical Code(s): R19.7 - Diarrhea, unspecified (8) Depression with anxiety Current visit: Yes Status: Acute Category: Medical Code(s): F41.8 - Other specified anxiety disorders (9) Constipation Current visit: Yes Status: Acute Category: Medical Code(s): K59.00 - Constipation, unspecified - Assessment and plan all Dx Assessment and Plan for all problems:: Will give suppository today. Encouraged to eat frequently in small amounts. Encouraged to drink the Ensure. CT scan of chest reviewed and as per Dr. Duarte. Pulmonology to see patient today.
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
[2018-01-11 07:46] VITALS: BP 110/67
--- NOTE | 2018-01-11 08:08 | Progress Note ---
Internal Medicine - PN: Subj *Date: 01/11/18 *Time: 08:05 Interval history: Patient states she is still sad and anxious. She is tearful. She states that she did not sleep. She still has right lower rib cage pain. She does have a dry cough at times. She continues to have periodic nausea. She still has constipation and the stool softeners did not help. Exam Vital signs and Labs for Last 24 Hours: Temp Pulse Resp BP Pulse Ox 98.8 F 87 20 110/67 92 L 01/11/18 07:45 01/11/18 07:45 01/11/18 07:45 01/11/18 07:45 01/11/18 07:45 I & O for Last 24 hours: Intake & Output 01/08/18 01/09/18 01/10/18 01/11/18 11:59 11:59 11:59 11:59 Intake Total 2613 / 2613 2733 / 2733 2329 / 2329 1439 / 1439 Output Total 1500 / 1500 450 / 450 Balance 1113 / 1113 2283 / 2283 2329 / 2329 1439 / 1439 Weight 134 lb - Constitutional Comments: Cries easily - *Routine Respiratory Exam Present: decreased breath sounds, rhonchi - *Routine Cardiovascular Exam Present: RRR - *Routine Abdominal Exam Present: soft, normoactive bowel sounds. Absent: tenderness - *Routine Extremities Exam Absent: cyanosis, clubbing, edema Assessment and Plan (1) Streptococcus pneumoniae pneumonia Current visit: Yes Status: Acute Category: Medical Code(s): J13 - Pneumonia due to Streptococcus pneumoniae (2) Abdominal pain Current visit: Yes Status: Acute Category: Medical Code(s): R10.9 - Unspecified abdominal pain (3) Nausea & vomiting Current visit: Yes Status: Acute Category: Medical Code(s): R11.2 - Nausea with vomiting, unspecified (4) Weight loss Current visit: Yes Status: Acute Category: Medical Code(s): R63.4 - Abnormal weight loss (5) COPD (chronic obstructive pulmonary disease) Current visit: Yes Status: Chronic Category: Medical Code(s): J44.9 - Chronic obstructive pulmonary disease, unspecified (6) Hypokalemia Current visit: Yes Status: Acute Category: Medical Code(s): E87.6 - Hypokalemia (7) Diarrhea Current visit: Yes Status: Acute Category: Medical Code(s): R19.7 - Diarrhea, unspecified (8) Depression with anxiety Current visit: Yes Status: Acute Category: Medical Code(s): F41.8 - Other specified anxiety disorders (9) Constipation Current visit: Yes Status: Acute Category: Medical Code(s): K59.00 - Constipation, unspecified - Assessment and plan all Dx Assessment and Plan for all problems:: Will order MiraLAX for constipation. Dr. Garduno's note reviewed. He would like to see her on an outpatient basis and repeat her CT scan. Will discuss further care with Dr. arellano.
--- NOTE | 2018-01-11 16:38 | Discharge Summary ---
General - General Admission date:: 01/04/18 Discharge date: 01/11/18 HPI HPI: Ms. Turner is a 57yo female who states she has been feeling poorly for 1 month. She does not currently have a PCP but does have an appt scheduled with Dr. Carr. She has had shortness of breath for the past month and has a history of COPD. She then developed a cough for the past several days productive of green and yellow phlegm and and began running fevers. She also states that she has had some right flank pain and diffuse abdominal pain. She states her was in a coma for pneumonia and when he woke up, he left her. She states she has been very upset and thought her abdominal pain was d/t her anxiety. She has been unable to eat or drink and has had nausea and vomiting off and on. She states she has probably lost 20lb in the past month. She began feeling so poorly she called 911 to bring her to the ER. She is upset because she wants something for pain. She states a friend gave her a Tylenol #3 yesterday and that is the only thing that's helped. She was found to have pneumonia in the ER and will be admitted for further evaluation and treatment. Hospital Course Hospital Course: The patient was started on abx and morphine for pain. She was started on nebs as well some potassium and a sputum cx and diarrhea panel were ordered. The patient's white blood cell count normalized as did her potassium. She was initially started on trazodone for sleep, but this did not help, so it was changed to temazepam. She had a repeat CXR showing improvement in the pneumonia. She was started on some steroids as well as sertraline and lorazepam for her anxiety. She had a CT of the chest d/t continued pain in her back and side and it showed emphysema, bilateral bronchial and peribronchial thickening within the lower lobe bronchi, and occlusion or intraluminal filling of the RLL bronchus. Pulmonology was consulted. Her microbiology returned showing Streptococcus pneumoniae in the sputum culture which was sensitive to Levaquin, therefore this was continued. She was seen by Dr. Garduno and he wanted to f/u with her in his office and repeat the CT scan in 4-6 weeks. She was stable to be discharged home on continued abx. Objective Vital signs: Temp Pulse Resp BP Pulse Ox 98.8 F 87 20 110/67 92 L 01/11/18 07:45 01/11/18 07:45 01/11/18 07:45 01/11/18 07:45 01/11/18 07:45 Narrative: - Constitutional agitated - *Routine HEENT Exam Head: Present: normocephalic Eye: Present: EOMI, PERRL ENT: Present: mucous membranes dry - *Routine Neck Exam Present: supple, full ROM. Absent: carotid bruit - *Routine Respiratory Exam Present: decreased breath sounds (in bilateral bases, faint rhonchi in the right base) - *Routine Cardiovascular Exam Present: RRR - *Routine Abdominal Exam Present: soft, normoactive bowel sounds, tenderness (diffusely ttp) - *Routine Extremities Exam Absent: cyanosis, clubbing, edema - *Routine Skin Exam Present: warm. Absent: rash - *Routine Neurological Exam Present: alert, oriented X3 - Routine Psychiatric Exam Present: anxious DS: Diagnosis - Discharge Diagnosis (1) Streptococcus pneumoniae pneumonia Status: Acute (2) Abdominal pain Status: Acute (3) Nausea & vomiting Status: Acute (4) Weight loss Status: Acute (5) COPD (chronic obstructive pulmonary disease) Status: Chronic (6) Hypokalemia Status: Acute (7) Diarrhea Status: Acute (8) Depression with anxiety Status: Acute (9) Constipation Status: Acute Discharge Plan - Patient Discharge Instructions ACTIVITY: Continue current activity DIET: continue same diet Patient Instructions: Pneumonia-Adult, Diarrhea, Depression, Chronic Obstructive Pulmonary Disease, Constipation, Acute Abdominal Pain, Nausea and Vomiting-Adult, Hypokalemia - Follow up Plan Follow up with: Andrew Garduno MD [Consulting Physician] - Disposition: Home, Self-Group Home Medications: Home Medications Medication Instructions Recorded Confirmed Type No Known Home Medications 07/12/17 01/04/18 History Prescriptions/Medication Reconciliation: New LORazepam [Ativan 0.5mg tablet] 0.5 mg PO BID #60 tablet Nicotine [Nicoderm 21mg/24hr patch] 21 mg TD DAILYP PRN #30 patch.td24 PRN Reason: Nicotine Cravings Polyethylene Glycol 3350 [Miralax 17gm Packet] 17 gm PO DAILYP PRN #510 powd.pack PRN Reason: Constipation Sertraline HCl [Zoloft 50mg tablet] 50 mg PO DAILY #30 tablet levoFLOXacin [Levaquin 500mg tab] 500 mg PO DAILY #7 tab No Action No Known Home Medications
== END 2018-01-11 11:03 | disposition home or self-care (01) ==
LOC: ER 09:26 → 2ND 11:53
PROVIDERS: ADMIT Family Medicine; ATTEND Family Medicine

== ENCOUNTER → 2018-02-03 16:37 | Outpatient (CLI) | payer OTHER, SELFPAY ==
[2018-02-03 19:59] LABS: Amphetamine/Metha Screen,Urine Negative ng/mL (<1000); Barbiturates Screen,Urine Negative ng/mL (<200); Benzodiazepines Screen,Urine Negative ng/mL (<200); Cannabinoid Screen,Urine Negative ng/mL (<50); Cocaine Screen,Urine Negative ng/mL (<300); Methadone Screen,Urine Negative ng/mL (<300); Opiate Screen,Urine Negative ng/mL (<300); Phencyclidine Screen,Urine Negative ng/mL (<25)
[2018-02-03 20:00] LABS: T4 (Thyroxine) 9.5 ug/dl (4.7-13.3); Thyroid Stimulating Hormone 0.84 uIU/ml (0.358-3.740)
[2018-02-05 09:28] LABS: Rapid Plasma Reagin Ab Titer Non Reactive (NonRea<1:1)
[2018-02-05 16:09] LABS: Hep A Ab, IgM Negative (Negative); Hepatitis B Core Antibody IgM Negative (Negative); Hepatitis B Surface Antigen Negative (Negative)
[2018-02-05 17:19] LABS: HIV Screen 4th Generation wRfx Non Reactive (Non Reactive); Hepatitis C Antibody >11.0 s/co ratio (0.0-0.9)
== END ==
PROVIDERS: PCP Nurse Practitioner Family; Visit Provider Nurse Practitioner Family
DX: Z20.2 Contact with and (suspected) exposure to infections with a predominantly sexual mode of transmission (principal); F41.9 Anxiety disorder, unspecified; E04.9 Nontoxic goiter, unspecified; R53.83 Other fatigue
CPT/HCPCS: 80074; 80305; 84436; 84443; 86592; 86703; 87210; 87491; 87591; G0432

== ENCOUNTER → 2018-02-15 18:56 | Outpatient (CLI) | payer OTHER, SELFPAY ==
[2018-02-15 20:10] LABS: Amphetamine/Metha Screen,Urine Negative ng/mL (<1000); Barbiturates Screen,Urine Negative ng/mL (<200); Benzodiazepines Screen,Urine Positive ng/mL (<200); Cannabinoid Screen,Urine Negative ng/mL (<50); Cocaine Screen,Urine Negative ng/mL (<300); Methadone Screen,Urine Negative ng/mL (<300); Opiate Screen,Urine Negative ng/mL (<300); Phencyclidine Screen,Urine Negative ng/mL (<25)
== END ==
LOC: LAB 18:57 → LAB.DROPOF 02-16 11:24
PROVIDERS: PCP Nurse Practitioner Family; Visit Provider Nurse Practitioner Family
DX: Z79.899 Other long term (current) drug therapy (principal)
CPT/HCPCS: 80305

== ENCOUNTER → 2018-03-07 13:17 | Outpatient (CLI) | payer OTHER, SELFPAY ==
--- NOTE | 2018-03-07 13:21 | US_ITS ---
US thyroid HISTORY: ITS.REASON: enlarged thyroid ORDERING PHYSICIAN: Harshal Lazcano PATIENT AGE: 58 years Comparison: None FINDINGS: There is a 5 mm hypoechoic nodule in the right aspect of the isthmus. The right lobe is 4.2 x 1.6 x 2.4 cm. 5 mm isoechoic nodule upper pole 12 x 6 mm mixed nodule in the interpolar region containing both cystic and solid components. There is some increased blood flow at this area. 5 mm mixed echogenic nodule lower pole 5 mm isoechoic nodule lower pole with small cystic component. The left lobe is 4 x 1.3 x 1 cm. 4 mm cyst upper pole. 3 mm isoechoic nodule mid polar region. IMPRESSION: 1. Bilateral thyroid nodules. The largest nodule is in mid polar region on the right at 12 x 6 mm. Suggest 6 month follow-up to confirm stability 2. Mildly enlarged thyroid gland.
== END ==
PROVIDERS: PCP Nurse Practitioner Family; Visit Provider Nurse Practitioner Family
DX: E04.9 Nontoxic goiter, unspecified (principal)
CPT/HCPCS: 76536

== ENCOUNTER → 2018-03-08 20:24 | Outpatient (CLI) | payer OTHER, SELFPAY ==
[2018-03-08 21:56] LABS: Amphetamine/Metha Screen,Urine Negative ng/mL (<1000); Barbiturates Screen,Urine Negative ng/mL (<200); Benzodiazepines Screen,Urine Positive ng/mL (<200); Cannabinoid Screen,Urine Positive ng/mL (<50); Cocaine Screen,Urine Negative ng/mL (<300); Methadone Screen,Urine Negative ng/mL (<300); Opiate Screen,Urine Negative ng/mL (<300); Phencyclidine Screen,Urine Negative ng/mL (<25)
== END ==
PROVIDERS: Visit Provider Nurse Practitioner Family
DX: Z79.899 Other long term (current) drug therapy (principal)
CPT/HCPCS: 80305

== ENCOUNTER → 2018-03-09 13:04 | Outpatient (CLI) | payer OTHER, SELFPAY ==
[2018-03-09 13:29] LABS: Basophils # 0.1 K/mm3 (0-0.2); Basophils % 0.6 % (0.1-2.0); Eosinophils # 0.1 K/mm3 (0.0-0.4); Eosinophils % 0.8 % (0.1-12.0); Hematocrit 40.2 % (37.0-47.0); Hemoglobin 12.5 g/dL (12.2-16.2); Lymphocytes # 2.8 K/mm3 (0.7-4.5); Lymphocytes % 27.3 % (10-50); Mean Corpuscular HGB Conc 31.2 g/dL (31.8-35.4); Mean Corpuscular Hemoglobin 27.7 pg (27.0-31.2); Mean Corpuscular Volume 88.8 fl (81-99); Mean Platelet Volume 7.8 fl (7.4-10.4); Monocytes # 0.5 K/mm3 (0.1-1.0); Monocytes % 4.7 % (1.7-9.3); Neutrophils # 6.8 K/mm3 (1.8-7.8); Neutrophils % 66.6 % (37.0-80.0); Platelet Count 222 K/mm3 (142-424); Red Blood Count 4.52 M/mm3 (4.20-5.40); White Blood Count 10.2 K/mm3 (4.8-10.8)
[2018-03-09 13:35] LABS: INR 0.93 (0.9-1.1); Prothrombin Time 9.6 seconds (9.4-11.8)
[2018-03-09 14:34] LABS: Alanine Aminotransferase 31 U/L (12-78); Albumin/Globulin Ratio 0.9 (1.1-1.8); Alkaline Phosphatase 145 U/L (46-116); Anion Gap 10.5 mEq/L (5-15); Aspartate Amino Transferase 14 U/L (15-37); Bilirubin,Total 0.2 mg/dL (0.2-1.0); Blood Urea Nitrogen 24 mg/dL (7-18); Calcium 8.5 mg/dL (8.5-10.1); Carbon Dioxide 30 mmol/L (21.0-32.0); Chloride 108 mmol/L (98-107); Creatinine,Serum 1.59 mg/dL (0.55-1.02); Estimated Glomerular Filt Rate 33 ml/min (>60); GFR (African American) 40 ML/MIN (>60); Globulin 3.3 gm/dl (1.3-3.2); Glucose 85 mg/dL (74-106); Potassium 3.5 mmoL/L (3.5-5.1); Sodium 145 mmol/L (136-145); Total Protein,Serum 6.3 gm/dL (6.4-8.2)
[2018-03-10 10:58] LABS: Vitamin B12 559 pg/mL (232-1245); Vitamin D 25 Hydroxy 14.5 ng/mL (30.0-100.0)
== END ==
PROVIDERS: Visit Provider Nurse Practitioner Family
DX: R53.83 Other fatigue (principal); B19.20 Unspecified viral hepatitis C without hepatic coma; R76.8 Other specified abnormal immunological findings in serum; E55.9 Vitamin D deficiency, unspecified
CPT/HCPCS: 36415; 80053; 82607; 82652; 85025; 85610; 87522

== ENCOUNTER 2018-03-14 14:10 | Observation (INO) ==
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
[2018-03-14 15:07] LABS: Basophils % 0.4 % (0.1-2.0); Eosinophils # 0.1 K/mm3 (0.0-0.4); Eosinophils % 0.8 % (0.1-12.0); Hematocrit 39.5 % (37.0-47.0); Hemoglobin 12.4 g/dL (12.2-16.2); Lymphocytes # 1.4 K/mm3 (0.7-4.5); Lymphocytes % 11.9 % (10-50); Mean Corpuscular HGB Conc 31.3 g/dL (31.8-35.4); Mean Corpuscular Hemoglobin 27.6 pg (27.0-31.2); Mean Corpuscular Volume 88.1 fl (81-99); Mean Platelet Volume 7.7 fl (7.4-10.4); Monocytes # 0.5 K/mm3 (0.1-1.0); Monocytes % 4.6 % (1.7-9.3); Neutrophils # 9.6 K/mm3 (1.8-7.8); Neutrophils % 82.4 % (37.0-80.0); Platelet Count 203 K/mm3 (142-424); Red Blood Count 4.48 M/mm3 (4.20-5.40); Red Cell Distribution Width 16.3 % (11.5-17.5); White Blood Count 11.7 K/mm3 (4.8-10.8)
[2018-03-14 15:17] LABS: Albumin Level 3.7 gm/dL (3.4-5.0); Albumin/Globulin Ratio 0.9 (1.1-1.8); Anion Gap 18.3 mEq/L (5-15); Bilirubin,Total 0.8 mg/dL (0.2-1.0); Calcium 9.1 mg/dL (8.5-10.1); Globulin 4.1 gm/dl (1.3-3.2); Potassium 3.3 mmoL/L (3.5-5.1); Total Protein,Serum 7.8 gm/dL (6.4-8.2)
--- NOTE | 2018-03-14 15:39 | Non-Invasive Vascular Report ---
"Venous Exam Indications: 782.3 Edema. 729.81 Swelling of limb. 729.5 Pain in limb. IMPRESSIONS 1. There is no evidence of significant Reflux. 2. No evidence of deep or superficial vein thrombosis involving the left lower extremity Left lower extremity venous duplex evaluation. Doppler flow study including spectral analysis, color and hanna scale imaging. Location: Emergency department. Patient status: Emergency department. CRITICAL FINDINGS - Reported to: Gurpreet - Read back and verified. - 03/14/18 - 1515 - None Tables: Venous flow and imaging: + +-------+ + |Location |Overall|Flow properties | + +-------+ + |Left common femoral |Patent |Normal phasicity; spontaneous; | | | |normal augmentation; compressible | + +-------+ + |Left saphenofemoral junction|Patent |Compressible | + +-------+ + |Left profunda femoral |Patent |Compressible | + +-------+ + |Left femoral |Patent |Normal phasicity; spontaneous; | | | |normal augmentation; compressible | + +-------+ + |Left greater saphenous |Patent |Normal phasicity; spontaneous; | | | |normal augmentation; compressible | + +-------+ + |Left popliteal |Patent |Normal phasicity; spontaneous; | | | |normal augmentation; compressible | + +-------+ + |Left posterior tibial |Patent |Compressible | + +-------+ + |Left peroneal |Patent |Compressible | + +-------+ + |Left gastrocnemius |Patent |Compressible | + +-------+ + |Left soleal |Patent |Compressible | + +-------+ + (Report amended ) Electronically signed by: Eric Bear [id number]"
--- NOTE | 2018-03-14 16:24 | Pharmacy Consult Notes ---
- Pharmacy Consult Date: 03/14/18 Time: 16:23 Referring provider: DR. BERNAL Reason for Consult:: VANCOMYCIN DOSING Allergies and ADEs:: Allergies Allergy/AdvReac Type Severity Reaction Status Date / Time No Known Allergies Allergy Verified 03/09/18 14:06 Home Medications:: Home Medications Medication Instructions Recorded Confirmed Type Vitamin B Complex 1 tab PO DAILY 03/14/18 03/14/18 History clonazePAM [Clonazepam] 0.5 mg PO BID 03/14/18 03/14/18 History Height: 1.8 m Weight: 66.224 kg Laboratory Results:: Laboratory Results - last 24 hr 03/14/18 14:40: WBC 11.7 H, RBC 4.48, Hgb 12.4, Hct 39.5, MCV 88.1, MCH 27.6, MCHC 31.3 L, RDW 16.3, Plt Count 203, MPV 7.7, Neut % (Auto) 82.4 H, Lymph % (Auto) 11.9, [place] % (Auto) 4.6, Eos % (Auto) 0.8, Baso % (Auto) 0.4, Neut # (Auto) 9.6 H, Lymph # (Auto) 1.4, [place] # (Auto) 0.5, Eos # (Auto) 0.1, Baso # (Auto) 0.0 03/14/18 14:40: Sodium 137, Potassium 3.3 L, Chloride 101, Carbon Dioxide 21, Anion Gap 18.3 H, BUN 24 H, Creatinine 1.43 H, Estimated Creat Clear 44, Estimated GFR 38 L, Est GFR ( Amer) 45 L, Glucose 106, Calcium 9.1, Total Bilirubin 0.8, AST 41 H, ALT 45, Alkaline Phosphatase 147 H, Total Protein 7.8, Albumin 3.7, Globulin 4.1 H, Albumin/Globulin Ratio 0.9 L 03/14/18 14:40: Lactate 0.5 03/14/18 14:50: C-Reactive Protein 5.9 H Medical History: Reports:: Anxiety, Cancer, Chronic Obstructive Pulmonary Disease (COPD), Depression, Hypertension, Kidney Stones Denies:: Diabetes Mellitus Type 1, Diabetes Mellitus Type 2, MRSA Assessment and Plan - Assessment and plan all Dx Assessment and Plan for all problems:: BASED ON PATIENT FACTORS, RECOMMEND VANCOMYCIN 1250 MG IV Q24H. PHARMACY WILL FOLLOW DAILY AND ADJUST APPROPRIATE.
--- NOTE | 2018-03-15 07:59 | Pharmacy Consult Notes ---
[facility] Pharmacy VTE Monitoring - Patient Demographics Admission date: 03/14/18 Report Date: 03/15/18 Time: 07:58 Allergies/Adverse Reactions: Patient Allergies No Known Allergies Allergy (Verified 03/09/18 14:06) Height: 1.8 m Weight: 58.23 kg Patient Problems: Current Active Problems Cellulitis of left leg (Acute) - VTE Risk Labs: VTE Related Lab Results Hgb 12.4 g/dL (12.2-16.2) 03/14/18 14:40 Hct 39.5 % (37.0-47.0) 03/14/18 14:40 Plt Count 203 K/mm3 (142-424) 03/14/18 14:40 BUN 24 mg/dL (7-18) H 03/14/18 14:40 Creatinine 1.43 mg/dL (0.55-1.02) H 03/14/18 14:40 Estimated Creat Clear 44 mL/min (50-200) 03/14/18 14:40 Was VTE Risk Assessment Performed: Yes VTE Score: 4 VTE Risk Level: Low Risk Clinical Trial Participant: No - Prophylaxis VTE Prophylaxis Ordered?: Yes Types of VTE Prophylaxis: TEDS Knee High
[2018-03-15 09:03] VITALS: BP 95/62
--- NOTE | 2018-03-15 11:38 | H&P/Discharge Summary ---
General - General Admission date:: 03/14/18 Discharge date: 03/15/18 *Admission Date: 03/14/18 *Chief complaint: pain in left leg *History of present illness: 58 yr old female presents to ed via ambulance complaining of left lower leg and ankle pain with redness and swelling for 2 days. She says that she fell 5 days ago and sustained a skin wound to her right tello area but did not think she hit her left lower leg. She says that it swelled and treated the abrasion with peroxide. That improved, but then her feet started having a burning sensation, predominantly on the left foot. Yesterday morning she noticed that her left lower leg and ankle and foot were swelling. She has redness of the foot lower leg and ankle, and pain increased. No fevers. Pt admitted for iv antibotics. [facility] History I have reviewed the patient's past medical history: Yes Medical History: Reports:: Anxiety, Cancer, Chronic Obstructive Pulmonary Disease (COPD), Depression, Hypertension, Kidney Stones Denies:: Diabetes Mellitus Type 1, Diabetes Mellitus Type 2, MRSA Other Medical History: Reports: Arthritis Other Surgeries: Yes: Cancer Surgery, , Ureter Stent, Other Amputation: No Fractures: No - *Social History Smoking Status: Current some day smoker Tobacco Type: cigarettes # Packs/Day (cigarettes): 1 Alcohol Intake: never Alcohol Intake Frequency:: holidays/special occasions only Substance Use Type: marijuana Occupational Status: unemployed Housing: apartment Household Members: spouse - Psychiatric History Expresses thoughts of harming self/others: None Suicide Plan Description: No Plan Pschychiatric History:: Reports:: Anxiety, Depression *Family Hx:: Cancer, Diabetes, Hyperlipidemia, Hypertension Review of Systems - Review of Systems Review of systems:: pertinent systems reviewed and negative unless documented below - Constitutional Denies fever(s) - Eyes Denies change in vision - ENT Denies change in voice - *Cardiovascular Reports leg swelling, Reports leg sores, Reports foot swelling - *Respiratory Denies chest congestion - *Gastrointestinal Reports nausea, Denies vomiting - *Genitourinary Denies absent period - *Musculoskeletal Denies decreased muscle mass - *Neurologic Denies loss of vision - Psychiatric Denies anxiety, Denies panic attacks - Endocrine Denies flushing - Hematologic/Lymphatic Denies enlarged lymph nodes Exam Vital signs and Labs for Last 24 Hours: Temp Pulse Resp BP Pulse Ox 97.8 F 100 H 20 95/62 L 93 L 03/15/18 08:00 03/15/18 08:00 03/15/18 08:00 03/15/18 08:00 03/15/18 08:00 Laboratory Results - last 24 hr 03/14/18 14:40: WBC 11.7 H, RBC 4.48, Hgb 12.4, Hct 39.5, MCV 88.1, MCH 27.6, MCHC 31.3 L, RDW 16.3, Plt Count 203, MPV 7.7, Neut % (Auto) 82.4 H, Lymph % (Auto) 11.9, [place] % (Auto) 4.6, Eos % (Auto) 0.8, Baso % (Auto) 0.4, Neut # (Auto) 9.6 H, Lymph # (Auto) 1.4, [place] # (Auto) 0.5, Eos # (Auto) 0.1, Baso # (Auto) 0.0 03/14/18 14:40: Sodium 137, Potassium 3.3 L, Chloride 101, Carbon Dioxide 21, Anion Gap 18.3 H, BUN 24 H, Creatinine 1.43 H, Estimated Creat Clear 44, Estimated GFR 38 L, Est GFR ( Amer) 45 L, Glucose 106, Calcium 9.1, Total Bilirubin 0.8, AST 41 H, ALT 45, Alkaline Phosphatase 147 H, Total Protein 7.8, Albumin 3.7, Globulin 4.1 H, Albumin/Globulin Ratio 0.9 L 03/14/18 14:40: Lactate 0.5 03/14/18 14:50: ESR 52 H 03/14/18 14:50: C-Reactive Protein 5.9 H I & O for Last 24 hours: Intake & Output 03/12/18 03/13/18 03/14/18 03/15/18 11:59 11:59 11:59 11:59 Intake Total 1544 / 1544 Balance 1544 / 1544 Weight 128 lb 6 oz - *Routine HEENT Exam Head: Present: normocephalic Eye: Present: PERRL ENT: Present: mucous membranes moist - *Routine Neck Exam Present: supple. Absent: lymphadenopathy - *Routine Respiratory Exam Present: CTA bilaterally - *Routine Cardiovascular Exam Present: RRR - *Routine Abdominal Exam Present: soft, normoactive bowel sounds. Absent: tenderness - *Routine Extremities Exam Present: edema, full ROM, pulses intact. Absent: cyanosis, clubbing - *Routine Skin Exam Present: warm, wounds. Absent: rash Comments: scabbed area to rt chin with bruise left lower leg redness and slight swelling - *Routine Neurological Exam Present: alert, oriented X3 Hospital Course Hospital Course: pt received iv vanc last pm. today pt states doing better and redness and swelling has improved. will dc home on po antibiotics follow up in office on Tuesday. Results Labs on day of discharge: Labs from last 24 hours 03/14/18 03/14/18 03/14/18 14:50 14:50 14:40 WBC RBC Hgb Hct MCV MCH MCHC RDW Plt Count MPV Neut % (Auto) Lymph % (Auto) [place] % (Auto) Eos % (Auto) Baso % (Auto) Neut # (Auto) Lymph # (Auto) [place] # (Auto) Eos # (Auto) Baso # (Auto) ESR 52 H Sodium Potassium Chloride Carbon Dioxide Anion Gap BUN Creatinine Estimated Creat Clear Estimated GFR Est GFR ( Amer) Glucose Lactate 0.5 Calcium Total Bilirubin AST ALT Alkaline Phosphatase C-Reactive Protein 5.9 H Total Protein Albumin Globulin Albumin/Globulin Ratio 03/14/18 03/14/18 14:40 14:40 WBC 11.7 H RBC 4.48 Hgb 12.4 Hct 39.5 MCV 88.1 MCH 27.6 MCHC 31.3 L RDW 16.3 Plt Count 203 MPV 7.7 Neut % (Auto) 82.4 H Lymph % (Auto) 11.9 [place] % (Auto) 4.6 Eos % (Auto) 0.8 Baso % (Auto) 0.4 Neut # (Auto) 9.6 H Lymph # (Auto) 1.4 [place] # (Auto) 0.5 Eos # (Auto) 0.1 Baso # (Auto) 0.0 ESR Sodium 137 Potassium 3.3 L Chloride 101 Carbon Dioxide 21 Anion Gap 18.3 H BUN 24 H Creatinine 1.43 H Estimated Creat Clear 44 Estimated GFR 38 L Est GFR ( Amer) 45 L Glucose 106 Lactate Calcium 9.1 Total Bilirubin 0.8 AST 41 H ALT 45 Alkaline Phosphatase 147 H C-Reactive Protein Total Protein 7.8 Albumin 3.7 Globulin 4.1 H Albumin/Globulin Ratio 0.9 L - Additional Comments rounded with salma all orders per salma Discharge Medications - Medications for Discharge Home Medication List at Discharge: No Action ergocalciferol (vitamin D2) 50,000 unit capsule 50,000 unit PO QWEEK #7 cap sertraline 50 mg tablet 50 mg PO DAILY #30 tab clonazePAM [Clonazepam] 0.5 mg PO BID Vitamin B Complex 1 tab PO DAILY Disposition Disposition: Home, Self-Care
== END 2018-03-15 14:05 | disposition home or self-care (01) ==
LOC: 2ND 14:10 → ER 14:10 → 2ND 17:30
PROVIDERS: ADMIT Emergency Medicine; ATTEND Emergency Medicine

== ENCOUNTER 2018-12-26 15:25 | Outpatient (RCR) | payer OTHER, SELFPAY | END 2018-12-26 15:45 | disposition home or self-care (01) | LOC: OT 15:25 | PROVIDERS: Visit Provider Orthopaedic Surgery | DX: S63.502A Unspecified sprain of left wrist, initial encounter (principal) | CPT/HCPCS: 97763 ==

== ENCOUNTER → 2020-01-07 11:32 | Outpatient (CLI) | payer BC, SELFPAY ==
[2020-01-07 12:05] LABS: Basophils # 0.1 K/mm3 (0-0.2); Eosinophils # 0.1 K/mm3 (0.0-0.4); Hematocrit 47.5 % (37.0-47.0); Hemoglobin 15.2 g/dL (12.2-16.2); Lymphocytes # 2.3 K/mm3 (0.7-4.5); Lymphocytes % 32.2 % (10-50); Mean Corpuscular HGB Conc 31.9 g/dL (31.8-35.4); Mean Corpuscular Hemoglobin 30.3 pg (27.0-31.2); Mean Corpuscular Volume 94.9 fl (81-99); Mean Platelet Volume 8.2 fl (7.4-10.4); Monocytes # 0.3 K/mm3 (0.1-1.0); Monocytes % 4.2 % (1.7-9.3); Neutrophils # 4.3 K/mm3 (1.8-7.8); Neutrophils % 60.6 % (37.0-80.0); Platelet Count 200 K/mm3 (142-424); Red Blood Count 5.01 M/mm3 (4.20-5.40)
[2020-01-07 12:34] LABS: Chloride 103 mmol/L (98-107); Potassium 5.2 mmoL/L (3.5-5.1); Sodium 142 mmol/L (136-145)
[2020-01-07 12:36] LABS: Blood Urea Nitrogen 15 mg/dl (7-17); Estimated Glomerular Filt Rate 64 ml/min (>60); GFR (African American) 77 ML/MIN (>60)
[2020-01-07 12:37] LABS: Alanine Aminotransferase 26 U/L (12-78); Albumin Level 4.5 g/dl (3.5-5.0); Albumin/Globulin Ratio 1.6 (1.1-1.8); Alkaline Phosphatase 133 U/L (38-126); Anion Gap 13.2 mEq/L (5-15); Aspartate Amino Transferase 35 U/L (14-36); Bilirubin,Total 0.5 mg/dl (0.2-1.3); Calcium 10.4 mg/dl (8.4-10.2); Carbon Dioxide 31 mmol/L (22.0-30.0); Globulin 2.9 g/dL (1.3-3.2); Glucose 98 mg/dl (74-100); Total Protein,Serum 7.4 g/dl (6.3-8.2)
[2020-01-07 12:52] LABS: 25-OH Vitamin D, Total 26.5 ng/mL (30-100)
[2020-01-07 13:07] LABS: Thyroid Stimulating Hormone 1.58 uIU/mL (0.465-4.68)
[2020-01-07 14:28] LABS: Vitamin B12 971 pg/mL (239-931)
== END ==
PROVIDERS: Visit Provider Nurse Practitioner Family
DX: G43.709 Chronic migraine without aura, not intractable, without status migrainosus (principal); F41.9 Anxiety disorder, unspecified; E55.9 Vitamin D deficiency, unspecified
CPT/HCPCS: 36415; 80053; 82306; 82607; 84443; 85025

== ENCOUNTER 2020-01-22 12:11 | Emergency (ER) | payer BC, SELFPAY ==
[2020-01-22 12:13] VITALS: BP 135/62
[2020-01-22 12:29] VITALS: BP 139/79; PULSE 63; RESP 16; TEMP 36.6; O2SAT 99; BMI 20.9
--- NOTE | 2020-01-22 12:53 | [facility].EDGENADL ---
ED Disposition Clinical Impression: Epigastric pain, Chest wall pain Disposition: Home, Self-Care Condition on Discharge: Good Instructions: DI for Abdominal Pain-Adult, DI for Rib Contusion Additional Instructions: [place] or ibuprofen as needed for pain. Follow-up with your primary care provider for findings on CT scan: Biliary and pancreatic ductal dilatation, low-density findings within the uterus. Additional instructions for CHEST PAIN: See your physician as soon as possible for further evaluation. Return immediately if worsening chest pain, vomiting, shortness of breath, fever, coughing of blood. Additional instructions for ABDOMINAL PAIN: See your physician as soon as possible for further evaluation. Return immediately if worsening abdominal pain, vomiting, shortness of breath, fever, vomiting of blood or abdominal distention. Prescriptions: Hydrocod/Acet 5/325 mg [[place] 5/325mg tablet] 1 tab PO Q6HP PRN #8 tab PRN Reason: Pain Transmission Status: Sent to [facility] Referrals: Rukhsana Richey APRN [Primary Care Provider] - - Critical Care Critical Care Time: No Attestation: On 01/22/20, the high probability of a clinically significant, sudden or life threatening deterioration of the following system(s) required my full and direct attention, intervention and personal management. The time I documented below is in addition to time spent performing reported procedures but includes the following listed in this critical care notation. Medical Decision Making - Sim Inquiry Pt receiving controlled substance: Yes Sim was queried for this patient: Yes Reference #:: [id number] Risks and benefits of using a controlled substance: were discussed with pt by me Comment: 0 rxs. Vital Signs: 01/22/20 12:13 01/22/20 12:29 Temperature 98 F Temperature Source Oral Pulse Rate [Right Brachial] 63 Respiratory Rate 16 Blood Pressure [Right Arm] 135/62 139/79 Blood Pressure Mean [Right Arm] 86 99 Blood Pressure Source [Right Arm] Automatic Cuff Blood Pressure Position [Right Arm] Sitting 02 Sat by Pulse Oximetry 99 Oxygen Delivery Method Room Air - Lab Data Lab Results 01/22/20 13:50: WBC 8.9, RBC 4.85, Hgb 14.8, Hct 45.6, MCV 94.0, MCH 30.6, MCHC 32.5, RDW 13.5, Plt Count 215, MPV 8.4, Neut % (Auto) 67.4, Lymph % (Auto) 25.5, [place] % (Auto) 4.1, Eos % (Auto) 2.3, Baso % (Auto) 0.6, Neut # (Auto) 6.0, Lymph # (Auto) 2.3, [place] # (Auto) 0.4, Eos # (Auto) 0.2, Baso # (Auto) 0.1 01/22/20 13:50: Sodium 140, Potassium 4.2, Chloride 107, Carbon Dioxide 26, Anion Gap 11.2, BUN 16, Creatinine 1.00, Estimated Creat Clear 64, Estimated GFR 57 L, Est GFR ( Amer) 68, Glucose 99, Calcium 9.7, Total Bilirubin 0.5, AST 33, ALT 20, Alkaline Phosphatase 127 H, Total Protein 7.7, Albumin 4.6, Globulin 3.1, Albumin/Globulin Ratio 1.5, Amylase 81, Lipase 71 01/22/20 13:50: Serum HCG, Qual Negative 01/22/20 13:50: Troponin I < 0.01 01/22/20 17:25: Urine Color Yellow, Urine Appearance Clear, Urine pH 6.0, Ur Specific [place] 1.010, Urine Protein Negative, Urine Glucose (UA) Negative, Urine Ketones Negative, Urine Blood Trace-i, Urine Nitrate Negative, Urine Bilirubin Negative, Urine Urobilinogen 0.2, Ur Leukocyte Esterase Negative, Urine RBC Occasional, Urine WBC 5-10, Ur Squamous Epith Cells 3-5, Urine Bacteria 1+ 01/22/20 17:25: Urine Opiates Screen Positive H, Urine Methadone Screen Negative, Ur Barbituates Screen Negative, Ur Phencyclidine Scrn Negative, Ur Amphetamines Screen Negative, U Benzodiazepines Scrn Negative, Urine Cocaine Screen Negative, U Marijuana (THC) Screen Negative Result diagrams: 01/22/20 13:50 01/22/20 13:50 Orders (Tests/Meds): ED MEDICATIONS Discontinued Medications Generic Name Dose Route Start Last Admin Trade Name Freq PRN Reason Stop Dose Admin Ioversol 100 ml 01/22/20 15:48 01/22/20 15:49 Ioversol-350 (74%) 100ml Vial IV 01/22/20 15:49 100 ml ONC
--- NOTE | 2020-01-22 13:03 | CT_ITS ---
PROCEDURE: CT ANGIO CHEST CLINCIAL INDICATION: trauma, abdominal pain and chest pain Left-sided chest pain following injury COMPARISON: CT ABDPELWO CT abdomen pelvis wo con from 02/13/[address] ABDOMEN PELVIS W CON from 01/22/2020 TECHNIQUE: IV Contrast: 70ML OPTIRAY 350 Axial images obtained with sagittal and coronal reformats. All CT scans at the facility use one or more dose reduction, viz: automated exposure control, ma/kV adjustment per patient size (including targeted exams where dose is matched to indication, i.e. head), or iterative reconstruction technique. FINDINGS: HEART AND MEDIASTINAL STRUCTURES: 12 mm hypodense nodule in the right thyroid gland incompletely imaged. No aortic aneurysm or dissection is evident. There is some mild plaque involving the aorta. No evidence of central pulmonary embolus. No mediastinal or hilar mass or adenopathy. LUNGS AND PLEURAL SPACES: Bullous changes are present in the apices with centrilobular emphysema. Atelectatic or fibrotic changes are present in the lower lobes BONY STRUCTURES: No acute bony abnormalities apparent. UPPER ABDOMEN: See abdomen CT report ADDITIONAL FINDINGS: No other significant abnormalities. IMPRESSION: 1. No acute thoracic findings. No evidence of aortic aneurysm or dissection. 2. 12 mm hypodense right thyroid nodule 3. Bullous changes in the lung apices with centrilobular emphysema Dictated by: Eric Bear MD 01/22/2020 16:16 Eric Bear MD in [facility] 01/22/2020 16:16
--- NOTE | 2020-01-22 13:03 | CT_ITS ---
PROCEDURE: CT ABDOMEN PELVIS W CON CLINICAL INDICATION: trauma, abdominal pain and chest pain COMPARISON: CT ABDPELWO CT abdomen pelvis wo con from 02/13/2018 TECHNIQUE: IV Contrast: 75ML OPTIRAY 350 Oral Contrast None Axial images obtained with sagittal and coronal reformats. All CT scans at the facility use one or more dose reduction, viz: automated exposure control, ma/kV adjustment per patient size (including targeted exams where dose is matched to indication, i.e. head), or iterative reconstruction technique. FINDINGS: LOWER THORAX: No acute finding ABDOMEN & PELVIS: There is intra and extrahepatic biliary ductal dilatation. The common bile duct measures 2 9 mm in diameter. The pancreatic duct is also mildly prominent indicating a double duct sign. Lesion at the ampulla should be excluded. Consider ERCP for further evaluation. There is some minimal enhancement of the fundus of the gallbladder wall with minimal thickening. The spleen and adrenal glands are unremarkable. No obvious renal calculi. No intestinal obstruction or free air. The appendix has an unremarkable appearance. There is diverticulosis involving the descending and sigmoid colon. No evidence of diverticulitis. There are prominent low-density changes within the uterus centrally. Please correlate with clinical findings. A gestational sac could cause this appearance. Endometrial thickening or menses could also cause this. There is a small umbilical hernia containing fat IMPRESSION: Intra and extrahepatic biliary ductal dilatation along with pancreatic ductal dilatation indication in double duct sign which may be seen with a lesion at the ampulla. ERCP suggested for further evaluation. There is some mild nonspecific thickening and enhancement of the gallbladder wall at the fundus Low-density changes within the uterus. Please correlate with clinical parameters. Pelvic ultrasound and correlation with beta HCG may be in order. Dictated by: Eric Bear MD 01/22/2020 16:23 Eric Bear MD in [facility] 01/22/2020 16:23
[2020-01-22 14:04] LABS: Chloride 107 mmol/L (98-107)
[2020-01-22 14:05] LABS: Potassium 4.2 mmoL/L (3.5-5.1); Sodium 140 mmol/L (136-145)
[2020-01-22 14:07] LABS: Alanine Aminotransferase 20 U/L (12-78); Amylase 81 U/L (30-110); Anion Gap 11.2 mEq/L (5-15); Aspartate Amino Transferase 33 U/L (14-36); Blood Urea Nitrogen 16 mg/dl (7-17); Carbon Dioxide 26 mmol/L (22.0-30.0); Creatinine Clearance Estimated 64 mL/min (50-200); Estimated Glomerular Filt Rate 57 ml/min (>60); GFR (African American) 68 ML/MIN (>60)
[2020-01-22 14:08] LABS: Albumin Level 4.6 g/dl (3.5-5.0); Albumin/Globulin Ratio 1.5 (1.1-1.8); Alkaline Phosphatase 127 U/L (38-126); Bilirubin,Total 0.5 mg/dl (0.2-1.3); Calcium 9.7 mg/dl (8.4-10.2); Globulin 3.1 g/dL (1.3-3.2); Glucose 99 mg/dl (74-100); Lipase 71 U/L (23-300); Total Protein,Serum 7.7 g/dl (6.3-8.2)
[2020-01-22 14:22] LABS: Basophils # 0.1 K/mm3 (0-0.2); Basophils % 0.6 % (0.1-2.0); Eosinophils # 0.2 K/mm3 (0.0-0.4); Eosinophils % 2.3 % (0.1-12.0); Hematocrit 45.6 % (37.0-47.0); Hemoglobin 14.8 g/dL (12.2-16.2); Lymphocytes # 2.3 K/mm3 (0.7-4.5); Lymphocytes % 25.5 % (10-50); Mean Corpuscular HGB Conc 32.5 g/dL (31.8-35.4); Mean Corpuscular Hemoglobin 30.6 pg (27.0-31.2); Mean Platelet Volume 8.4 fl (7.4-10.4); Monocytes # 0.4 K/mm3 (0.1-1.0); Monocytes % 4.1 % (1.7-9.3); Neutrophils % 67.4 % (37.0-80.0); Platelet Count 215 K/mm3 (142-424); Red Blood Count 4.85 M/mm3 (4.20-5.40); Red Cell Distribution Width 13.5 % (11.5-17.5); White Blood Count 8.9 K/mm3 (4.8-10.8)
[2020-01-22 16:49] LABS: HCG Qualitative, Serum Negative (Negative)
[2020-01-22 17:31] LABS: Microscopic, Urine URINE MICROSCOPIC (MICROSCOPIC)
--- NOTE | 2020-01-22 17:35 | ECG_ITS ---
APPROVED REPORT Exam: Resting ECG HR:58 bpm ECG Measurements Heart Rate 58 AXES UT 160 P 83 QRSd 100 QRS 81 QT 420 T 73 QTc 412 Conclusion Sinus bradycardia Otherwise normal ECG Electronically signed by : Chung Coles, 01/27/2020 09:51:06
[2020-01-22 17:46] LABS: Amphetamine/Metha Screen,Urine Negative ng/ml (<1000); Barbiturates Screen,Urine Negative ng/ml (<200)
[2020-01-22 17:47] LABS: Benzodiazepines Screen,Urine Negative ng/ml (<200)
[2020-01-22 17:48] LABS: Cannabinoid Screen,Urine Negative ng/ml (<50); Cocaine Screen,Urine Negative ng/ml (<300)
[2020-01-22 17:49] LABS: Appearance,Urine CLEAR (Clear); Bilirubin,Urine Negative (Negative); Blood, Urine TRACE-I (Negative); Color,Urine YELLOW (Yellow); Glucose,Urine (UA) Negative (Negative); Ketones,Urine Negative (Negative); Leukocyte Esterase,Urine Negative (Negative); Methadone Screen,Urine Negative ng/ml (<300); Nitrate,Urine Negative (Negative); Protein,Urine Negative (Negative); Urobilinogen,Urine 0.2 EU/dl (0.2)
[2020-01-22 17:50] LABS: Opiate Screen,Urine Positive ng/ml (<300)
[2020-01-22 17:51] LABS: Phencyclidine Screen,Urine Negative ng/ml (<25)
[2020-01-22 18:07] LABS: Troponin I < 0.01 ng/ml (0.00-0.034)
[2020-01-22 18:11] LABS: Bacteria,Urine 1+ /lpf; RBC,Urine Occasional #/hpf (0-3)
[2020-01-22 18:40] VITALS: BP 138/78; PULSE 82; RESP 16; TEMP 36.8; O2SAT 96
== END 2020-01-22 18:42 | disposition home or self-care (01) ==
PROVIDERS: Emergency Provider Emergency Medicine; PCP Nurse Practitioner Family
DX: R10.13 Epigastric pain (principal); R07.89 Other chest pain; F19.10 Other psychoactive substance abuse, uncomplicated; J44.9 Chronic obstructive pulmonary disease, unspecified; F41.8 Other specified anxiety disorders; I10 Essential (primary) hypertension; Z87.442 Personal history of urinary calculi; Z85.41 Personal history of malignant neoplasm of cervix uteri
CPT/HCPCS: 71275; 74177; 80053; 80305; 81001; 82150; 83690; 84484; 84703; 85025; 93005; 96374; 99283; J2405; Q9967

== ENCOUNTER → 2020-01-25 11:45 | Outpatient (CLI) | payer BC, SELFPAY ==
[2020-01-25 11:52] LABS: MANUAL DIFFERENTIAL MANUAL DIFFERENTIAL (MANUAL DIFF)
[2020-01-25 12:13] LABS: Basophils # 0.1 K/mm3 (0-0.2); Basophils % 0.8 % (0.1-2.0); Eosinophils # 0.2 K/mm3 (0.0-0.4); Eosinophils % 2.5 % (0.1-12.0); Hematocrit 41.4 % (37.0-47.0); Hemoglobin 13.5 g/dL (12.2-16.2); Lymphocytes # 1.7 K/mm3 (0.7-4.5); Lymphocytes % 26.1 % (10-50); Mean Corpuscular HGB Conc 32.6 g/dL (31.8-35.4); Mean Corpuscular Hemoglobin 30.5 pg (27.0-31.2); Mean Corpuscular Volume 93.6 fl (81-99); Mean Platelet Volume 8.3 fl (7.4-10.4); Monocytes # 0.3 K/mm3 (0.1-1.0); Monocytes % 4.5 % (1.7-9.3); Neutrophils # 4.3 K/mm3 (1.8-7.8); Neutrophils % 66.1 % (37.0-80.0); Platelet Count 174 K/mm3 (142-424); Red Blood Count 4.42 M/mm3 (4.20-5.40); Red Cell Distribution Width 13.2 % (11.5-17.5); White Blood Count 6.5 K/mm3 (4.8-10.8)
[2020-01-25 14:19] LABS: Coronavirus 19 IgG Antibody Negative (Negative); Coronavirus 19 IgM Antibody Negative (Negative)
[2020-01-25 14:42] LABS: Chloride 110 mmol/L (98-107); Potassium 4.7 mmoL/L (3.5-5.1); Sodium 140 mmol/L (136-145)
[2020-01-25 14:45] LABS: Alanine Aminotransferase 26 U/L (12-78); Albumin Level 3.8 g/dl (3.5-5.0); Albumin/Globulin Ratio 1.5 (1.1-1.8); Alkaline Phosphatase 113 U/L (38-126); Anion Gap 11.7 mEq/L (5-15); Aspartate Amino Transferase 37 U/L (14-36); Bilirubin,Total 0.3 mg/dl (0.2-1.3); Blood Urea Nitrogen 16 mg/dl (7-17); Calcium 9.2 mg/dl (8.4-10.2); Carbon Dioxide 23 mmol/L (22.0-30.0); Estimated Glomerular Filt Rate 73 ml/min (>60); GFR (African American) 89 ML/MIN (>60); Globulin 2.6 g/dL (1.3-3.2); Glucose 79 mg/dl (74-100); Lipase 69 U/L (23-300); Total Protein,Serum 6.4 g/dl (6.3-8.2)
[2020-01-25 16:06] LABS: Eosinophils % 1 % (0-3); Lymphocytes % 26 % (10-50); Monocytes % 8 % (2-9); Neutrophils % 65 % (42-76); Platelet Estimate Normal; RBC Morphology Normal; Total Cells Counted 100
[2020-01-26 10:31] LABS: CA 19-9 7 U/mL (0-35)
== END ==
PROVIDERS: Visit Provider Internal Medicine Adolescent Medicine
DX: Z03.818 Encounter for observation for suspected exposure to other biological agents ruled out (principal); R10.12 Left upper quadrant pain
CPT/HCPCS: 36415; 80053; 83690; 85007; 85014; 85018; 85048; 85049; 86316; 86328

== ENCOUNTER 2020-02-01 11:33 | Day surgery (SDC) | payer BC, SELFPAY ==
[2020-01-25 13:24] VITALS: BMI 21.0
[2020-02-01 12:43] VITALS: BP 127/79; PULSE 71; RESP 18; TEMP 36.8; O2SAT 99
[2020-02-01 13:30] LABS: Coronavirus 19 IgG Antibody Negative (Negative); Coronavirus 19 IgM Antibody Negative (Negative)
--- NOTE | 2020-02-01 13:48 | P.PN_ITS ---
[facility] Anesthesia Checklist - Patient Identification Patient Identification: Arm Band, Verbal (Name & ) - Structural Data Admitted From: Home Planned Operative Procedure/s: ERCP Consent for Planned Operative Procedure(s) Verified: Yes Verified Documents: Surgical Consent, History and Physical - NPO Status Verified Time NPO: 00:00 - Chart Verification Results Verified: CBC, BMP - Additional verifications Patient : No Anesthesia Reactions: No - Airway Assessment C-Spine Mobility Assessed: Yes TMJ Mobility Assessed: Yes Dentition: Dentures-good fit (removed) - Neurological Assessment Level of Consciousness: Awake (anxious), Alert, Appropriate, Follows Commands Hx Seizures: No Numbness or tingling in extremities: No - Anesthesia Plan Anesthesia Risk discussed: Yes Anesthesia Plan: Verified ASA Class: III Anesthesia Type: MAC [facility] History I have reviewed the patient's past medical history: Yes Medical History: Reports:: Anxiety, Cancer (cervical), Chronic Obstructive Pulmonary Disease (COPD), Depression, Hypertension, Kidney Stones, Migraine Denies:: Diabetes Mellitus Type 1, Diabetes Mellitus Type 2, Internal Pacemaker, MRSA, Seizures *Have you ever received a pneumonia vaccine?: No *Have you received a flu vaccine this season?: No Other Medical History: Reports: Arthritis, Other Anesthesia experience/problems:: None Other Surgeries: Yes: Cancer Surgery, , Ureter Stent, Other. 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
--- NOTE | 2020-02-01 14:29 | P.PCN_ITS ---
[facility] Procedure Note Procedure Note:: ERCP procedure Report: Endoscopic retrograde cholangiopancreatography with biliary sphincterotomy, balloon extraction and cold biopsies Endoscopist: Bryan Jefferson II, MD Referring Physician: EUSEBIO Andrade/Andrew Dhaliwal MD Date of Procedure: February 01, 2020 Equipment: Olympus 180 side viewing endoscope duodenoscope Sedation: MAC sedation Indication: Mrs. Turner is a 59-year-old female with upper abdominal pain especially in the left upper quadrant but across the abdomen. She has had some gassiness and nausea. She has irregular bowel function with some diarrhea. She reports no bloating or weight loss. The patient did have a CT scan of the abdomen and pelvis on January 22, 2020. There was some intra and extrahepatic biliary ductal dilation along with some pancreatic duct dilation especially considering a double duct sign. There was suspicion for a possible lesion at the ampulla. The patient did have lab work that included a normal CA 19-9 (7), normal lipase (69) and normal liver chemistries with alkaline phosphatase 113, ALT 26. Her total bilirubin was 0.3. She had normal CBC. Procedure: Prior to the procedure, a history and physical exam was performed, and patient's medications and allergies were reviewed. The risks, benefits and alternatives of the sedation and procedure were discussed with the patient. All questions were answered and informed consent was obtained. The patient was brought to the fluoroscopic radiology room. Patient identification and proposed procedure were verified by the physician and the nurse. The patient was placed in a swimmer's position between left lateral decubitus and prone position and the scope was passed under direct vision. Throughout the procedure, the patient's blood pressure, pulse, and oxygen saturations were monitored continuously. The ERCP was accomplished without difficulty. The patient tolerated the procedure well. Findings: The side-viewing scope was passed directly into the upper esophagus and advanced to the second portion of the duodenum. There was some erosive reactive gastropathy of the antrum of the stomach and biopsies were obtained (probably NSAID gastropathy). The esophagus and duodenum were normal. The ampulla was well visualized. The ampulla was normal in appearance with no mass lesions or ampullary abnormality. The common bile duct and pancreatic duct were cannulated. The pancreas was not injected with contrast. The cholangiogram did show some smooth tapering at the ampulla with delayed drainage of contrast and bile. The findings were consistent with sphincter of Oddi dysfunction. A biliary sphincterotomy was performed. There was extravasation of some bile and some sludge. Based upon the sludge, a 9 to 12 mm balloon was swept through the biliary system. There was passage of mostly mendez bile and a minimal amount of sludge. The original biliary diameter was maximally 9 to 10 mm at the CBD and there was mild intrahepatic biliary ductal dilation. There was filling of the cystic duct and partial filling of the gallbladder. There were no other strictures or filling defects within the biliary system. The procedure was then ended. Impression: 1. 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 I do feel that most of the patient's abdominal pain is functional. There is a moderate amount of gas/stool with sigmoid/left colonic diverticulosis. We will discuss additional dietary measures and treatment options. I will discuss findings with patient and family.
[2020-02-01 14:35] VITALS: BP 90/59; PULSE 71; RESP 16; TEMP 36.3; O2SAT 92
[2020-02-01 14:45] VITALS: BP 116/81; PULSE 79; RESP 16; O2SAT 97
[2020-02-01 14:55] VITALS: BP 136/82; PULSE 65; RESP 16; O2SAT 97
[2020-02-01 15:05] VITALS: BP 124/73; PULSE 67; RESP 16; O2SAT 95
[2020-02-01 15:34] VITALS: BP 127/79; PULSE 67; RESP 16; O2SAT 95
== END 2020-02-01 15:34 | disposition home or self-care (01) ==
LOC: OUTP 11:35
PROVIDERS: PCP Nurse Practitioner Family; Visit Provider Internal Medicine Gastroenterology
PROC: (CPT 43262; principal; 2020-02-01 13:00)
DX: K83.8 Other specified diseases of biliary tract (principal); J44.9 Chronic obstructive pulmonary disease, unspecified; I10 Essential (primary) hypertension; F41.9 Anxiety disorder, unspecified; F32.9 Major depressive disorder, single episode, unspecified; G43.909 Migraine, unspecified, not intractable, without status migrainosus; Z85.41 Personal history of malignant neoplasm of cervix uteri; Z72.0 Tobacco use; Z79.899 Other long term (current) drug therapy
CPT/HCPCS: 43262; 43261; 43264; 74330; 86328; Q9967

== ENCOUNTER → 2020-06-24 11:23 | Outpatient (CLI) | payer BC, SELFPAY ==
--- NOTE | 2020-06-24 11:27 | XR_ITS ---
PROCEDURE: XR CHEST 2V CLINICAL HISTORY: COUGH COMPARISON: CR CXR2V XR chest 2V from 01/04/2018 CR CXR2V XR chest 2V from 01/06/[address] ANGIO CHEST from 01/22/2020 FINDINGS: The cardiomediastinal silhouette and pulmonary vascularity are within normal limits. COPD. Biapical blebs. No lobar consolidation or collapse. No acute bony abnormalities. IMPRESSION: COPD. No change with no acute finding Dictated by: Eric Bear MD 06/24/2020 15:17 Eric Bear MD in [facility] 06/24/2020 15:17
== END ==
PROVIDERS: PCP Internal Medicine Adolescent Medicine; Visit Provider Internal Medicine Adolescent Medicine
DX: R05 Cough (principal)
CPT/HCPCS: 71046

== ENCOUNTER 2021-04-13 13:05 | Emergency (ER) | payer BC, SELFPAY ==
[2021-04-13 13:07] VITALS: BP 132/86; PULSE 88; RESP 20; TEMP 36.8; O2SAT 97; BMI 20.9
--- NOTE | 2021-04-13 13:26 | US_ITS ---
FINAL REPORT CLINICAL HISTORY: RUQ pain FINDINGS: ULTRASOUND RIGHT UPPER QUADRANT Sonographic imaging of the right upper quadrant was obtained. The pancreas is partially obscured. The liver is unremarkable. There is no evidence of gallstones. There is no gallbladder wall thickening. There is no biliary ductal dilatation. The common duct is slightly enlarged at 9 mm. Limited images of the right kidney are unremarkable. IMPRESSION: Slightly enlarged common duct. No evidence of choledocholithiasis. Reviewed, Interpreted and Dictated by Andrez Bello MD Transcribed by Kim Levy Authenticated by nAdrez Bello MD on 04/13/2021 03:51:48 PM [facility]
--- NOTE | 2021-04-13 13:42 | HMH.EDGENADL ---
ED Disposition Clinical Impression: Flank pain, acute Disposition: Home, Self-Care Condition on Discharge: Good Additional Instructions: Please continue to monitor your condition at home. If your condition worsens or other concerns arise, please return to the emergency department. Otherwise, please follow-up with your primary care physician. Referrals: Chung Coles MD [Primary Care Provider] - - Critical Care Critical Care Time: No Attestation: On 04/13/21, the high probability of a clinically significant, sudden or life threatening deterioration of the following system(s) required my full and direct attention, intervention and personal management. The time I documented below is in addition to time spent performing reported procedures but includes the following listed in this critical care notation. Medical Decision Making - Medical Records Medical records reviewed: Yes: I reviewed the patient's medical records. - Sim Inquiry Pt receiving controlled substance: Yes (One time dose for acute pain) Sim was queried for this patient: No Risks and benefits of using a controlled substance: were not discussed with pt by me Vital Signs: 04/13/21 13:07 Temperature 98.3 F Temperature Source Oral Pulse Rate [Right Radial] 88 Respiratory Rate 20 Blood Pressure [Right Arm] 132/86 Blood Pressure Mean [Right Arm] 101 Blood Pressure Source [Right Arm] Automatic Cuff Blood Pressure Position [Right Arm] Sitting 02 Sat by Pulse Oximetry 97 Oxygen Delivery Method Room Air - Lab Data Lab results reviewed: Yes: I reviewed the patient's lab results. Lab Results 04/13/21 13:45: WBC 7.1, RBC 4.62, Hgb 14.2, Hct 44.7, MCV 96.6, MCH 30.7, MCHC 31.8, RDW 13.7, Plt Count 227, MPV 8.9, Neut % (Auto) 65.9, Lymph % (Auto) 26.4, F[place] % (Auto) 4.0, Eos % (Auto) 2.1, Baso % (Auto) 1.6, Neut # (Auto) 4.7, Lymph # (Auto) 1.9, Fergus # (Auto) 0.3, Eos # (Auto) 0.2, Baso # (Auto) 0.1 04/13/21 13:45: Sodium 138, Potassium 4.3, Chloride 107, Carbon Dioxide 24, Anion Gap 11.3, BUN 15, Creatinine 0.70, Estimated Creat Clear 63, Estimated GFR 85, Est GFR ( Amer) 103, Glucose 97, Calcium 9.1, Total Bilirubin 0.4, AST 30, ALT 17, Alkaline Phosphatase 115, Troponin I < 0.01, Total Protein 7.2, Albumin 4.3, Globulin 2.9, Albumin/Globulin Ratio 1.5 04/13/21 14:04: D-Dimer 0.45 04/13/21 16:23: Troponin I < 0.01 Result diagrams: 04/13/21 13:45 04/13/21 13:45 Orders (Tests/Meds): ED MEDICATIONS Discontinued Medications Generic Name Dose Route Start Last Admin Trade Name Freq PRN Reason Stop Dose Admin Hydrocodone Bitart/Acetaminophen 1 tab 04/13/21 16:59 04/13/21 17:22 Hydrocodone/Apap 5/325 Mg Tablet PO 04/13/21 17:00 1 tab ONCE ONE Administration Ketorolac Tromethamine 15 mg 04/13/21 13:26 04/13/21 13:53 Ketorolac 30mg/Ml Vial IV 04/13/21 13:27 15 mg ONCE ONE Administration Ondansetron HCl 4 mg 04/13/21 13:27 04/13/21 13:53 Ondansetron 4mg/2ml Vial IV 04/13/21 13:28 4 mg ONCE ONE Administration ORDERS Category Date Time Status XR ribs RT min 3V w CXR1V Stat Exams 04/13/21 15:43 Taken Troponin I Q3H Lab 04/13/21 19:30 Ordered Medical Decision Narrative: Patient is a 61-year-old female without history of blood thinner use is presenting for chief complaint of anterior/inferior right rib cage pain since fall. Additional symptoms reported include hemoptysis, cough, right upper quadrant pain. Given this, diagnosis includes, but is not limited to, rib fracture, pulmonary contusion, PE, liver laceration, renal injury, gallbladder pathology such as cholecystitis, choledocholithiasis. Given this, patient was evaluate CBC, CMP, troponin, D-dimer, UA, x-ray of the right ribs and right upper quadrant ultrasound. She was treated for symptoms with IV Toradol and IV Zofran. Patient continued to have pain and she was treated with p.o. [place]. Her ultrasound shows mildly dilated bile duct but no
[2021-04-13 13:58] LABS: Basophils # 0.1 K/mm3 (0-0.2); Basophils % 1.6 % (0.1-2.0); Eosinophils # 0.2 K/mm3 (0.0-0.4); Eosinophils % 2.1 % (0.1-12.0); Hematocrit 44.7 % (37.0-47.0); Hemoglobin 14.2 g/dL (12.2-16.2); Lymphocytes # 1.9 K/mm3 (0.7-4.5); Lymphocytes % 26.4 % (10-50); Mean Corpuscular HGB Conc 31.8 g/dL (31.8-35.4); Mean Corpuscular Hemoglobin 30.7 pg (27.0-31.2); Mean Corpuscular Volume 96.6 fl (81-99); Mean Platelet Volume 8.9 fl (7.4-10.4); Monocytes # 0.3 K/mm3 (0.1-1.0); Neutrophils # 4.7 K/mm3 (1.8-7.8); Neutrophils % 65.9 % (37.0-80.0); Platelet Count 227 K/mm3 (142-424); Red Blood Count 4.62 M/mm3 (4.20-5.40); Red Cell Distribution Width 13.7 % (11.5-17.5); White Blood Count 7.1 K/mm3 (4.8-10.8)
[2021-04-13 14:07] LABS: Chloride 107 mmol/L (98-107)
[2021-04-13 14:08] LABS: Potassium 4.3 mmoL/L (3.5-5.1); Sodium 138 mmol/L (136-145)
[2021-04-13 14:10] LABS: Alanine Aminotransferase 17 U/L (12-78); Aspartate Amino Transferase 30 U/L (14-36); Blood Urea Nitrogen 15 mg/dl (7-17); Creatinine Clearance Estimated 63 mL/min (50-200); Estimated Glomerular Filt Rate 85 ml/min (>60); GFR (African American) 103 ML/MIN (>60)
[2021-04-13 14:11] LABS: Albumin Level 4.3 g/dl (3.5-5.0); Albumin/Globulin Ratio 1.5 (1.1-1.8); Alkaline Phosphatase 115 U/L (38-126); Anion Gap 11.3 mEq/L (5-15); Bilirubin,Total 0.4 mg/dl (0.2-1.3); Calcium 9.1 mg/dl (8.4-10.2); Carbon Dioxide 24 mmol/L (22.0-30.0); Globulin 2.9 g/dL (1.3-3.2); Glucose 97 mg/dl (74-100); Total Protein,Serum 7.2 g/dl (6.3-8.2)
[2021-04-13 14:23] LABS: D-Dimer 0.45 ug/mL (0.0-0.5)
[2021-04-13 14:31] LABS: Troponin I < 0.01 ng/ml (0.00-0.034)
--- NOTE | 2021-04-13 15:43 | XR_ITS ---
FINAL REPORT CLINICAL HISTORY: RUQ pain FINDINGS: ULTRASOUND RIGHT UPPER QUADRANT Sonographic imaging of the right upper quadrant was obtained. The pancreas is partially obscured. The liver is unremarkable. There is no evidence of gallstones. There is no gallbladder wall thickening. There is no biliary ductal dilatation. The common duct is slightly enlarged at 9 mm. Limited images of the right kidney are unremarkable. IMPRESSION: Slightly enlarged common duct. No evidence of choledocholithiasis. Reviewed, Interpreted and Dictated by Andrez Bello MD Transcribed by Kim Levy Authenticated by Andrez Bello MD on 04/13/2021 03:51:[address] [facility]
[2021-04-13 16:58] LABS: Troponin I < 0.01 ng/ml (0.00-0.034)
[2021-04-13 18:02] VITALS: BP 129/81; PULSE 82; RESP 18; TEMP 36.8; O2SAT 98
== END 2021-04-13 18:02 | disposition home or self-care (01) ==
PROVIDERS: Emergency Provider Emergency Medicine; PCP Internal Medicine Adolescent Medicine
DX: R10.11 Right upper quadrant pain (principal); F41.8 Other specified anxiety disorders; J44.9 Chronic obstructive pulmonary disease, unspecified; I10 Essential (primary) hypertension; F17.210 Nicotine dependence, cigarettes, uncomplicated; Z85.41 Personal history of malignant neoplasm of cervix uteri
CPT/HCPCS: 36415; 71101; 76705; 80053; 84484; 85025; 85378; 96374; 96375; 99282; J2405

== ENCOUNTER → 2021-04-23 13:28 | Outpatient (CLI) | payer BC, SELFPAY | PROVIDERS: PCP Internal Medicine Adolescent Medicine; Visit Provider Nurse Practitioner | DX: Z20.822 Contact with and (suspected) exposure to COVID-19 (principal) | CPT/HCPCS: C9803; U0003; U0005 ==

== ENCOUNTER 2021-08-10 08:59 | Emergency (ER) | payer BC, SELFPAY ==
[2021-08-10 08:59] VITALS: BP 145/88; PULSE 92; RESP 22; TEMP 36.8; O2SAT 97; BMI 21.7
--- NOTE | 2021-08-10 09:17 | HMH.EDANX ---
ED Disposition Clinical Impression: Acute anxiety Disposition: Home, Self-Care Condition on Discharge: Good Instructions: Anxiety Disorders Referrals: Andrew Dhaliwal MD [Primary Care Provider] - - Critical Care Critical Care Time: No Attestation: On , the high probability of a clinically significant, sudden or life threatening deterioration of the following system(s) required my full and direct attention, intervention and personal management. The time I documented below is in addition to time spent performing reported procedures but includes the following listed in this critical care notation. Medical Decision Making - Medical Records Medical records reviewed: Yes: I reviewed the patient's medical records. - Sim Inquiry Pt receiving controlled substance: Yes Sim was queried for this patient: Yes Reference #:: [id number] Risks and benefits of using a controlled substance: were discussed with pt by me Vital Signs: 08/10/21 08:59 Temperature 98.3 F Temperature Source Oral Pulse Rate [Right Radial] 92 H Respiratory Rate 22 Blood Pressure [Right Arm] 145/88 H Blood Pressure Mean [Right Arm] 107 Blood Pressure Source [Right Arm] Automatic Cuff Blood Pressure Position [Right Arm] Sitting 02 Sat by Pulse Oximetry 97 Oxygen Delivery Method Room Air Orders (Tests/Meds): ED MEDICATIONS Discontinued Medications Generic Name Dose Route Start Last Admin Trade Name Freq PRN Reason Stop Dose Admin Lorazepam 2 mg 08/10/21 09:11 08/10/21 09:22 Lorazepam 2mg/Ml Vial IM 08/10/21 09:12 2 mg ONCE ONE Administration - Reevaluation(s) Time: 09:43 Reevaluation #1: On reevaluation, patient is feeling better. On review of her Sim, she did have a full 30-day supply filled on July 24. I did recommend she follow-up with her PCP for further management. At this time patient is not suicidal, not homicidal. She is alert and appropriate. Patient will present to primary physician upon discharge. Given strict return precautions. Verbalized understanding. Medical Decision Narrative: 61-year-old female presenting with severe anxiety. Patient has been out of her medications. I did instruct the patient that we could provide a dose in the emergency department, however she will need to follow-up with her PCP for maintenance medications. Patient will be kept on continuous monitoring. Reevaluated. Anxiety HPI - General Chief Complaint: Anxiety Stated Complaint: possible panic attack, migraine Time Seen by Provider: 08/10/21 09:05 Mode of Arrival: Ambulatory Limitations: No Limitations Description of Symptoms (Recalled from ER Triage Doc. by RN): Pt c/o anxiety attack since yesterday and states that she is now developing a BOURGEOIS - History of Present Illness HPI narrative: This is a 61-year-old female presented to the emergency department with an anxiety attack. The patient has a longstanding history of severe anxiety. Patient states that she is prescribed Valium twice a day, however her anxiety has been worse lately so she has been taking it 3 times a day. Patient states that she ran out of her normal maintenance medications. She has been feeling very anxious since then. She feels like she cannot relax or sit still. She denies any suicidal or homicidal ideations. She does not have any chest pain or shortness of breath. No abdominal pain or vomiting. No diarrhea. Patient states that she has been getting so worked up that she feels like she has a headache. Patient denies any fevers or chills. She actually has a follow-up scheduled with her primary care physician at 1:00, however she felt like she could not wait that long. - Related Data Home Medications: Home Medications Medication Instructions Recorded Confirmed Magnesium Oxide [Magnesium] 400 mg PO DAILY 01/25/20 01/25/20 Propranolol HCl 10 mg PO DAILY 01/25/20 01/25/20 Vitamin B Complex [B Complex] 1 each PO DAILY 01/25/20
[2021-08-10 09:49] VITALS: BP 142/74; PULSE 87; RESP 16; TEMP 36.8; O2SAT 98
--- NOTE | 2021-08-10 09:49 | PC.NURSE ---
PT still tearful but advises she is ready to leave because the ER is making her more anxious. Advises she is going to go outside and then walk around the building to go to Dr. Coles office.
== END 2021-08-10 09:50 | disposition home or self-care (01) ==
PROVIDERS: Emergency Provider Emergency Medicine; PCP Internal Medicine Adolescent Medicine
DX: F41.9 Anxiety disorder, unspecified (principal); G43.909 Migraine, unspecified, not intractable, without status migrainosus; J44.9 Chronic obstructive pulmonary disease, unspecified; I10 Essential (primary) hypertension; Z87.442 Personal history of urinary calculi; Z85.41 Personal history of malignant neoplasm of cervix uteri; Z79.899 Other long term (current) drug therapy
CPT/HCPCS: 96372; 99283

== ENCOUNTER 2021-08-10 10:19 | Emergency (ER) | payer BC, SELFPAY ==
[2021-08-10 10:19] VITALS: BP 141/85; PULSE 94; RESP 22; TEMP 36.8; O2SAT 97; BMI 21.7
--- NOTE | 2021-08-10 11:03 | HMH.EDANX ---
ED Disposition Clinical Impression: Panic disorder Disposition: Home, Self-Care Condition on Discharge: Good Instructions: Anxiety Disorders Referrals: Andrew Dhaliwal MD [Primary Care Provider] - - Critical Care Critical Care Time: No Attestation: On 08/10/21, the high probability of a clinically significant, sudden or life threatening deterioration of the following system(s) required my full and direct attention, intervention and personal management. The time I documented below is in addition to time spent performing reported procedures but includes the following listed in this critical care notation. Medical Decision Making - Medical Records Medical records reviewed: Yes: I reviewed the patient's medical records. - Sim Inquiry Pt receiving controlled substance: No Vital Signs: 08/10/21 10:19 Temperature 98.2 F Temperature Source Oral Pulse Rate [Right Radial] 94 H Respiratory Rate 22 Blood Pressure [Right Arm] 141/85 H Blood Pressure Mean [Right Arm] 103 Blood Pressure Source [Right Arm] Automatic Cuff Blood Pressure Position [Right Arm] Sitting 02 Sat by Pulse Oximetry 97 Oxygen Delivery Method Room Air Orders (Tests/Meds): ED MEDICATIONS Discontinued Medications Generic Name Dose Route Start Last Admin Trade Name Freq PRN Reason Stop Dose Admin Haloperidol Lactate 5 mg 08/10/21 10:27 08/10/21 10:49 Haloperidol Lactate 5 Mg/Ml Vial IM 08/10/21 10:28 5 mg ONCE ONE Administration Medical Decision Narrative: 61-year-old female presenting with anxiety attack. Patient was provided symptomatic treatment. I did explain to her that we would not be refilling her maintenance medications given that her prescription was recently filled based on her Sim. She is to follow-up with her PCP in 48 hours. Given strict return precautions. Verbalized understanding. Anxiety HPI - General Chief Complaint: Anxiety Stated Complaint: panic attack Time Seen by Provider: 08/10/21 10:25 Mode of Arrival: Ambulatory Limitations: No Limitations Description of Symptoms (Recalled from ER Triage Doc. by RN): Pt returns to the ED after being D/C'd and going to her PCP for an appt, where pt states they had issues with her insurance and she was unable to be seen, and is hnow c/o continuation of her panic attack. - History of Present Illness HPI narrative: 61-year-old female returning again to the emergency department for a anxiety attack. Patient was treated and felt better earlier today. She was discharged to follow-up with her primary care physician. The patient states that when she went to see her primary physician she was unable to see him due to insurance issue. She could not elaborate anymore on this. The patient states that this made her even more anxious which prompted her to come back to the emergency department. Patient feels like she cannot calm down patient denies any headache or change in vision. No focal weakness. No fevers or chills. No chest pain or shortness of breath. Abdominal pain or vomiting. No diarrhea. - Related Data Home Medications: Home Medications Medication Instructions Recorded Confirmed Magnesium Oxide [Magnesium] 400 mg PO DAILY 01/25/20 01/25/20 Propranolol HCl 10 mg PO DAILY 01/25/20 01/25/20 Vitamin B Complex [B Complex] 1 each PO DAILY 01/25/20 01/25/20 levoFLOXacin [Levofloxacin 750MG 750 mg PO DAILY 01/25/20 01/25/20 Tablet*] Previous Rx's Medication Instructions Recorded Hydrocod/Acet 5/325 mg [[place] 1 tab PO Q6HP PRN #8 tab 01/22/20 5/325mg tablet] Allergies/Adverse Reactions: Allergies Allergy/AdvReac Type Severity Reaction Status Date / Time No Known Allergies Allergy Verified 01/22/20 12:36 [facility] History - Hepatitis A Screen Attestation statement:: This patient has been screened for Hepatitis A risk factors. I have reviewed the patient's past medical history: Yes Medical History: Reports:: Anxie
[2021-08-10 11:20] VITALS: BP 135/84; PULSE 89; RESP 19; TEMP 36.8; O2SAT 98
== END 2021-08-10 11:22 | disposition home or self-care (01) ==
PROVIDERS: Emergency Provider Emergency Medicine; PCP Internal Medicine Adolescent Medicine
DX: F41.0 Panic disorder [episodic paroxysmal anxiety] (principal); J44.9 Chronic obstructive pulmonary disease, unspecified; I10 Essential (primary) hypertension; Z87.442 Personal history of urinary calculi
CPT/HCPCS: 96372; 99283

== ENCOUNTER → 2023-02-11 09:57 | Outpatient (CLI) | payer BC, SELFPAY ==
[2023-02-11 18:55] LABS: Alanine Aminotransferase 25 U/L (12-78); Albumin Level 4.2 g/dl (3.5-5.0); Albumin/Globulin Ratio 1.4 (1.1-1.8); Alkaline Phosphatase 143 U/L (38-126); Aspartate Amino Transferase 35 U/L (14-36); Bilirubin,Total 0.3 mg/dl (0.2-1.3); Blood Urea Nitrogen 18 mg/dl (7-17); Calcium 9.2 mg/dl (8.4-10.2); Carbon Dioxide 24 mmol/L (22.0-30.0); Chloride 108 mmol/L (98-107); Cholesterol 240 mg/dl (140-200); Estimated Glomerular Filt Rate 50 ml/min (>60); GFR (African American) 61 ML/MIN (>60); Globulin 2.9 g/dL (1.3-3.2); Glucose 89 mg/dl (74-100); HDL Cholesterol 79 mg/dl (40-60); Sodium 142 mmol/L (136-145); Total Protein,Serum 7.1 g/dl (6.3-8.2); Triglycerides 182 mg/dl (30-150); VLDL Cholesterol 36 mg/dL (0-40)
[2023-02-11 19:07] LABS: Direct LDL Cholesterol 117.79 mg/dL (100-129)
[2023-02-11 19:10] LABS: Free T4 (Free Thyroxine) 1.16 ng/dl (0.78-2.19)
[2023-02-11 19:24] LABS: Amphetamine/Metha Screen,Urine Negative ng/ml (<1000)
[2023-02-11 19:25] LABS: Barbiturates Screen,Urine Negative ng/ml (<200); Thyroid Stimulating Hormone 2.15 uIU/mL (0.465-4.68)
[2023-02-11 19:26] LABS: Benzodiazepines Screen,Urine Negative ng/ml (<200); Cannabinoid Screen,Urine Negative ng/ml (<50)
[2023-02-11 19:27] LABS: Phencyclidine Screen,Urine Negative ng/ml (<25)
[2023-02-11 19:28] LABS: Cocaine Screen,Urine Negative ng/ml (<300)
[2023-02-11 19:29] LABS: Methadone Screen,Urine Negative ng/ml (<300); Opiate Screen,Urine Negative ng/ml (<300)
[2023-02-22 20:27] LABS: 1,25 Dihydroxy Vitamin D 62 pg/mL (.); 1,25-Dihydroxy, Vitamin D-2 <10 pg/mL (.); 1,25-Dihydroxy, Vitamin D-3 55 pg/mL (.)
== END ==
PROVIDERS: Nurse Practitioner Acute Care; PCP Family Medicine; Visit Provider Family Medicine
DX: F31.9 Bipolar disorder, unspecified (principal); F41.8 Other specified anxiety disorders; Z79.899 Other long term (current) drug therapy
CPT/HCPCS: 80053; 80061; 80305; 82652; 84439; 84443

== ENCOUNTER 2023-03-16 15:25 | Emergency (ER) | payer BC, SELFPAY ==
[2023-03-16 15:26] VITALS: BP 157/95; PULSE 92; RESP 20; TEMP 36.7; O2SAT 96; BMI 21.9
--- NOTE | 2023-03-16 15:32 | XR_ITS ---
FINAL REPORT CLINICAL HISTORY: dorsal trauma COMPARISON: None FINDINGS: RIGHT FOOT: Three views of the right foot were obtained. There is no acute fracture or dislocation. The joint spaces are intact. There is no soft tissue abnormality. IMPRESSION: No acute bony abnormality. Reviewed, Interpreted and Dictated by Juanacrlos Aguila III, MD Transcribed by Carrie Lyn Authenticated and [facility]
--- NOTE | 2023-03-16 15:33 | HMH.EDGENADL ---
Discharge Plan Disposition Patient Disposition: Home, Self-Care Chief Complaint: Extremity Injury, Lower Prescriptions Prescriptions: No Action doxepin 25 mg capsule 25 mg PO HS PRN (Reason: sleep) Qty: 30 3RF clonazepam [Klonopin] 0.5 mg tablet 0.5 mg PO DAILY PRN (Reason: anxiety) Qty: 15 1RF aripiprazole [Abilify] 5 mg tablet 5 mg PO DAILY Qty: 30 3RF prazosin 1 mg capsule 1 mg PO HS Qty: 30 2RF albuterol sulfate 90 mcg/actuation HFA aerosol inhaler 2 puff inhalation QID PRN (Reason: shortness of breath or wheezing) Qty: 8.5 10RF vitamin B complex 1 EACH tablet 1 each PO DAILY magnesium oxide 400 MG capsule 400 mg PO DAILY Referrals Follow up/Referrals: Nate Sparks MD [Primary Care Provider] - See instructions Andres Becker DO [Staff Physician] - See instructions Activity Restrictions/Add. Instructions Additional Instructions/Restrictions: At this time is felt you are safe to be discharged home. If new or worsening symptoms please not hesitate to return the emergency department. Please call and schedule follow-up with Dr. Becker next week for repeat evaluation. Please wear your hard soled shoe for comfort and bear weight as you are able. Clinical Impressions Clinical Impression: Foot trauma Discharge ED Provider: Suraj Henderson General Adult HPI General Chief complaint: Extremity Injury, Lower Stated complaint: AO 03/16, right foot pain Time Seen by Provider: 03/16/23 15:28 History of Present Illness HPI narrative: Patient is a 63-year-old female with no pertinent past medical history presents emergency department for evaluation of trauma. Patient dropped a steel turkey plate oriented vertically on the dorsal aspect of her right foot. Patient has had severe pain, she has had hairline fractures of the same foot before. Denies other traumatic complaints at this time. Limited ability to bear weight prior to arrival. Related Data Home Medications Medication Instructions Recorded Confirmed magnesium oxide 400 mg PO DAILY Supplement 01/25/20 02/11/23 vitamin B complex 1 each PO DAILY Supplement 01/25/20 02/11/23 Previous Rx's Medication Instructions Recorded clonazepam 0.5 mg tablet (Klonopin) 0.5 mg PO DAILY PRN anxiety #15 01/17/23 tabs doxepin 25 mg capsule 25 mg PO HS PRN sleep #30 caps 01/17/23 albuterol sulfate 90 mcg/actuation 2 puff inhalation QID PRN 01/19/23 aerosol inhaler shortness of breath or wheezing #8.5 grams aripiprazole 5 mg tablet (Abilify) 5 mg PO DAILY #30 tabs 02/11/23 prazosin 1 mg capsule 1 mg PO HS Nightmares #30 caps 02/11/23 Allergies Allergy/AdvReac Type Severity Reaction Status Date / Time No Known Allergies Allergy Verified 02/11/23 09:18 [facility] Disclaimer: The information contained in this section may have been updated after the patient was seen, as this information can be updated by other users. 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
[2023-03-16 16:30] VITALS: PULSE 83; O2SAT 94
[2023-03-16 17:06] VITALS: BP 140/78; PULSE 70; RESP 20; TEMP 36.7; O2SAT 99
== END 2023-03-16 17:07 | disposition home or self-care (01) ==
PROVIDERS: Emergency Provider Emergency Medicine; PCP Family Medicine
DX: M79.671 Pain in right foot (principal); F31.9 Bipolar disorder, unspecified; F43.10 Post-traumatic stress disorder, unspecified; F17.210 Nicotine dependence, cigarettes, uncomplicated; W20.8XXA Other cause of strike by thrown, projected or falling object, initial encounter
CPT/HCPCS: 73630; 99283

== ENCOUNTER 2023-08-11 06:10 | Observation (INO) | payer BC, SELFPAY ==
[2023-08-11 06:10] VITALS: BP 113/84; PULSE 103; RESP 20; TEMP 36.4; O2SAT 98; BMI 16.7
[2023-08-11 06:20] VITALS: BMI 16.7
--- NOTE | 2023-08-11 06:20 | PC.NURSE ---
Patient remains uncooperative with triage and vitals assessment. Patient continually states that she is not crazy , please help me but will no elaborate on what she needs help with. Patient very impulsive, repeatedly stands and attempts to walk out of the room. Uncooperative with police and with staff. Orders received.
[2023-08-11] MEDS: diphenhydrAMINE 50MG/ML VIAL 50 MG IM (06:25)
[2023-08-11] MEDS: MIDAZOLAM 5MG/ML 1ML VIAL 5 MG IM (06:25)
--- NOTE | 2023-08-11 06:28 | HMH.EDGENADL ---
Discharge Plan Disposition Patient Disposition: Still a Patient Clinical Impressions Clinical Impression: Psychosis Discharge ED Provider: Steven Amanda General Adult HPI <Steven Amanda MD - Last Filed: 08/11/23 07:00> General Chief complaint: Medical Clearance Stated complaint: medical clearance Time Seen by Provider: 08/11/23 06:10 History of Present Illness HPI narrative: 63-year-old female with reported history of bipolar, anxiety, PTSD, panic disorder presents in police custody for medical clearance. Per police report, patient reportedly called 911 saying that she was in a domestic assault. When they arrived to the house she was the only person in the house and patient was acting crazy . She was yelling, pressured speech, wide eyes, not making any sense. Please report that there is concern for cocaine use. They initially did not arrest her, but she then came running out of the house screaming and was uncontrollable and not redirectable. On initial evaluation, patient has pressured speech, is unable to stop talking, is nonsensical, is oriented to person only. She is unable to answer any complex questions. Related Data Home Medications Medication Instructions Recorded Confirmed doxepin 25 mg capsule 25 mg PO HSP PRN sleep 08/11/23 08/11/23 Previous Rx's Medication Instructions Recorded albuterol sulfate 90 mcg/actuation 2 puff inhalation QID PRN 01/19/23 aerosol inhaler shortness of breath or wheezing #8.5 grams aripiprazole 5 mg tablet (Abilify) 5 mg PO DAILY #30 tabs 02/11/23 prazosin 1 mg capsule 1 mg PO HS Nightmares #30 caps 02/11/23 Allergies Allergy/AdvReac Type Severity Reaction Status Date / Time No Known Allergies Allergy Verified 02/11/23 09:18 PFSH <Steven Amanda MD - Last Filed: 08/11/23 07:00> [facility] Disclaimer: The information contained in this section may have been updated after the patient was seen, as this information can be updated by other users. Medical History (Updated 08/11/23 @ 06:59 by Steven Amanda MD) delivery delivered Cervical cancer Bipolar 1 disorder Manic depression Anxiety PTSD (post-traumatic stress disorder) Family History Grandmother Diabetes Mother Alcoholism Cancer Diabetes Brother Alcoholism Diabetes Father Heart attack Grandfather Alcoholism Social History Smoking Status: Unknown if ever smoked second hand exposure: Yes alcohol intake: current alcohol intake frequency: holidays/special occasions only substance use type: former substance user, marijuana, crack/cocaine, heroin, hallucinogens, club/email designer drugs, IV drugs, prescription drug and other current occupational status: retired Travel in the last 8 weeks: None household members: spouse housing: house number of children: 8 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 current occupational exposures/hazards: No caffeine: Yes <Steven Amanda MD - Last Filed: 08/11/23 07:00> ROS Obtained: Yes All systems reviewed & no additional complaints except as documented Physical Exam <Steven Amanda MD - Last Filed: 08/11/23 07:00> General General appearance: in distress Comment: Thin, malnourished appearing Head Head exam: atraumatic and other (Temporal wasting) Eye Eye exam: Present normal appearance, PERRL and EOMI ENT ENT exam: Present normal oropharynx and normal external ear exam Neck Neck exam: Present normal inspection and full ROM Chest Chest inspection: Present normal inspection and symmetric chest wall rise; Absent tenderness Respiratory Respiratory exam: Present normal lung sounds bilaterally; Absent respiratory distress Cardiovascular Cardiovascular exam: Present regular rate and normal rhythm Abdominal Exam Abdominal exam: Present soft; Absent distention, tenderness or guarding Extremities Exam Extremities exam: Present normal inspection; Absent edema or joint swelling Back Exam Back exam: Present normal inspection; Absent tenderness Neurological Exam Neurological exam: Present alert and other (Moving all extremities spontaneously, intact sensation in all extremities, fidgety, unable to sit still, bouncing around) Psychiatric Psychiatric exam: Present agitated and manic (Extremely pressured speech, nonsensical,) Skin Skin exam: Present warm, dry and normal color Lymphatic Lymphatic Findings: no adenopathy Medical Decision Making <Steven Amanda MD - Last Filed: 08/11/23 07:00> Medical Records Medical records reviewed: Yes I reviewed the patient's medical records. Sim Inquiry Pt receiving controlled substance: No Sim was queried for this patient: No Vital Signs: 08/11/23 06:10 08/11/23 07:06 Temperature 97.5 F L Temperature Source Temporal Artery Scan Pulse Rate 85 Pulse Rate [Left Radial] 103 H Respiratory Rate 20 Blood Pressure 105/88 L Blood Pressure [Right Arm] 113/84 Blood Pressure Mean [Right Arm] 93 02 Sat by Pulse Oximetry 98 98 Oxygen Delivery Method Room Air Room Air Lab Data Lab results reviewed: Yes I reviewed the patient's lab results. Lab Results 08/11/23 07:04: WBC 8.5, RBC 4.37, Hgb 13.3, Hct 41.1, MCV 94.0, MCH 30.3, MCHC 32.3, RDW 14.0, Plt Count 215, MPV 8.6, Neut % (Auto) 69.9, Lymph % (Auto) 23.0, [place] % (Auto) 5.1, Eos % (Auto) 0.9, Baso % (Auto) 1.1, Neut # (Auto) 5.9, Lymph # (Auto) 2.0, [place] # (Auto) 0.4, Eos # (Auto) 0.1, Baso # (Auto) 0.1, Sodium 140, Potassium 3.3 L, Chloride 112 H, Carbon Dioxide 17 L, Anion Gap 14.3, BUN 23 H, Creatinine 2.10 H, Estimated Creat Clear 21, Estimated GFR 24 L, Est GFR ( Amer) 29 L, Glucose 94, Calcium 9.5, Total Bilirubin 0.6, AST 40 H, ALT 25, Alkaline Phosphatase 144 H, Total Protein 7.1, Albumin 4.5, Globulin 2.6, Albumin/Globulin Ratio 1.7, TSH 3.43, Thyroxine (T4) 8.0, Salicylates < 1.0 L, Acetaminophen < 10 L, Plasma/Serum Alcohol < 10 08/11/23 07:40: Urine Color Yellow, Urine Appearance Clear, Urine pH 5.5, Ur Specific [place] >= 1.030, Urine Protein Trace, Urine Glucose (UA) Negative, Urine Ketones Negative, Urine Blood 2+, Urine Nitrate Negative, Urine Bilirubin 1+ A, Urine Urobilinogen 0.2, Ur Leukocyte Esterase Trace, Urine RBC 20-50, Urine WBC Occasional, Ur Squamous Epith Cells Occasional, Urine Bacteria 1+, Hyaline Casts 3-5, Urine Opiates Screen Negative, Urine Methadone Screen Negative, Ur Barbituates Screen Negative, Ur Phencyclidine Scrn Negative, Ur Amphetamines Screen TNP, U Benzodiazepines Scrn Positive H, Urine Cocaine Screen Negative, U Marijuana (THC) Screen Positive H 08/11/23 07:53: VBG pH 7.29 L, VBG pCO2 34.7 L, VBG pO2 160.2 H, VBG HCO3 16.3 L, VBG Total CO2 17.4 L, VBG O2 Saturation 98.8 H, VBG Base Excess -10.2 L, VBG Lactic Acid 1.7 08/11/23 07:04 08/11/23 07:04 Orders (Tests/Meds): ED MEDICATIONS Generic Name Dose Route Start Last Admin Trade Name Freq PRN Reason Stop Dose Admin Acetaminophen 650 mg 08/11/23 08:42 Acetaminophen 325mg Tab PO 09/10/23 08:41 Q4HP PRN Fever or Mild Pain (1-3) Heparin Sodium (Porcine) 5,000 unit 08/11/23 08:45 Heparin Sodium 5,000 Unit/Ml Vial SQ 09/10/23 08:44 Q8H ALEX Discontinued Medications Generic Name Dose Route Start Last Admin Trade Name Freq PRN Reason Stop Dose Admin Diphenhydramine HCl 50 mg 08/11/23 06:20 08/11/23 06:25 Diphenhydramine 50mg/Ml Vial IM 08/11/23 06:21 50 mg ONCE ONE Administration Droperidol 5 mg 08/11/23 08:34 08/11/23 08:38 Droperidol 5mg/2ml Vial IV 08/11/23 08:35 5 mg ONCE ONE Administration Lactated Ringer's 1,000 mls @ 999 mls/hr 08/11/23 07:42 08/11/23 07:58 Lactated Ringer's 1000 Ml Bag IV 08/11/23 08:42 999 mls/hr .Q1H1M ONE Administration Midazolam HCl 5 mg 08/11/23 06:20 08/11/23 06:25 Midazolam 5mg/Ml 1ml Vial IM 08/11/23 06:21 5 mg ONCE ONE Administration Olanzapine 5 mg 08/11/23 07:43 08/11/23 07:57 Olanzapine 5 Mg Odt Tablet SL 08/11/23 07:44 5 mg ONCE ONE Administration Potassium Chloride 40 meq 08/11/23 07:42 08/11/23 07:57 Potassium Chloride 20meq Tab PO 08/11/23 07:43 40 meq ONCE ONE Administration ORDERS Category Date Time Status Acetaminophen Stat Lab 08/11/23 07:04 Completed Basic Metabolic Panel AMLAB Lab 08/12/23 06:00 Ordered Basic Metabolic Panel AMLAB Lab 08/13/23 06:00 Ordered Basic Metabolic Panel AMLAB Lab 08/14/23 06:00 Ordered CBC w/Auto Diff [Complete Blood Count Auto Diff] Stat Lab 08/11/23 07:04 Completed CMP [Comprehensive Metabolic Panel] Stat Lab 08/11/23 07:04 Completed Complete Blood Count Auto Diff AMLAB Lab 08/12/23 06:00 Ordered Complete Blood Count Auto Diff AMLAB Lab 08/13/23 06:00 Ordered Complete Blood Count Auto Diff AMLAB Lab 08/14/23 06:00 Ordered Ethyl Alcohol Stat Lab 08/11/23 07:04 Completed Salicylate Stat Lab 08/11/23 07:04 Completed T4 (Thyroxine) Stat Lab 08/11/23 07:04 Completed TSH [Thyroid Stimulating Hormone] Stat Lab 08/11/23 07:04 Completed UA [Urinalysis and Microscopic] Stat Lab 08/11/23 07:40 Completed UDS [Drug Screen,Urine] Stat Lab 08/11/23 07:40 Completed VBG [Venous Blood Gas] Stat RT 08/11/23 07:53 Completed Medical Decision Narrative: 63-year-old female with history of bipolar, panic disorder, PTSD, hepatitis C presents in police custody for medical clearance. They report concern for cocaine use. history was obtained interactive discussion with police. Patient is unable to provide any history of events secondary to psychosis. On arrival, patient is afebrile, normotensive, nontachycardic, manic in appearance, moving all extremities spontaneously. Full physical exam performed and significant for no obvious signs of trauma, clear lungs bilaterally. Differential includes but is not limited to ricardo, acute psychosis, intoxication, withdrawal Patient was given 5 mg IM Versed and 50 mg IM Benadryl for management of acute psychosis. Workup initiated including CBC CMP UA UDS TSH T4 Tylenol salicylate VBG ethanol. On re-evaluation, patient intermittently sleeping after administration of IM medications. At this time care handed off to oncoming physician. <Suraj Henderson MD - Last Filed: 08/11/23 09:37> Vital Signs: 08/11/23 06:10 08/11/23 07:06 Temperature 97.5 F L Temperature Source Temporal Artery Scan Pulse Rate 85 Pulse Rate [Left Radial] 103 H Respiratory Rate 20 Blood Pressure 105/88 L Blood Pressure [Right Arm] 113/84 Blood Pressure Mean [Right Arm] 93 02 Sat by Pulse Oximetry 98 98 Oxygen Delivery Method Room Air Room Air Lab Data Lab Results 08/11/23 07:04: WBC 8.5, RBC 4.37, Hgb 13.3, Hct 41.1, MCV 94.0, MCH 30.3, MCHC 32.3, RDW 14.0, Plt Count 215, MPV 8.6, Neut % (Auto) 69.9, Lymph % (Auto) 23.0, [place] % (Auto) 5.1, Eos % (Auto) 0.9, Baso % (Auto) 1.1, Neut # (Auto) 5.9, Lymph # (Auto) 2.0, [place] # (Auto) 0.4, Eos # (Auto) 0.1, Baso # (Auto) 0.1, Sodium 140, Potassium 3.3 L, Chloride 112 H, Carbon Dioxide 17 L, Anion Gap 14.3, BUN 23 H, Creatinine 2.10 H, Estimated Creat Clear 21, Estimated GFR 24 L, Est GFR ( Amer) 29 L, Glucose 94, Calcium 9.5, Total Bilirubin 0.6, AST 40 H, ALT 25, Alkaline Phosphatase 144 H, Total Protein 7.1, Albumin 4.5, Globulin 2.6, Albumin/Globulin Ratio 1.7, TSH 3.43, Thyroxine (T4) 8.0, Salicylates < 1.0 L, Acetaminophen < 10 L, Plasma/Serum Alcohol < 10 08/11/23 07:40: Urine Color Yellow, Urine Appearance Clear, Urine pH 5.5, Ur Specific [place] >= 1.030, Urine Protein Trace, Urine Glucose (UA) Negative, Urine Ketones Negative, Urine Blood 2+, Urine Nitrate Negative, Urine Bilirubin 1+ A, Urine Urobilinogen 0.2, Ur Leukocyte Esterase Trace, Urine RBC 20-50, Urine WBC Occasional, Ur Squamous Epith Cells Occasional, Urine Bacteria 1+, Hyaline Casts 3-5, Urine Opiates Screen Negative, Urine Methadone Screen Negative, Ur Barbituates Screen Negative, Ur Phencyclidine Scrn Negative, Ur Amphetamines Screen TNP, U Benzodiazepines Scrn Positive H, Urine Cocaine Screen Negative, U Marijuana (THC) Screen Positive H 08/11/23 07:53: VBG pH 7.29 L, VBG pCO2 34.7 L, VBG pO2 160.2 H, VBG HCO3 16.3 L, VBG Total CO2 17.4 L, VBG O2 Saturation 98.8 H, VBG Base Excess -10.2 L, VBG Lactic Acid 1.7 Orders (Tests/Meds): ED MEDICATIONS Generic Name Dose Route Start Last Admin Trade Name Freq PRN Reason Stop Dose Admin Acetaminophen 650 mg 08/11/23 08:42 Acetaminophen 325mg Tab PO 09/10/23 08:41 Q4HP PRN Fever or Mild Pain (1-3) Heparin Sodium (Porcine) 5,000 unit 08/11/23 08:45 Heparin Sodium 5,000 Unit/Ml Vial SQ 09/10/23 08:44 Q8H ALEX Discontinued Medications Generic Name Dose Route Start Last Admin Trade Name Freq PRN Reason Stop Dose Admin Diphenhydramine HCl 50 mg 08/11/23 06:20 08/11/23 06:25 Diphenhydramine 50mg/Ml Vial IM 08/11/23 06:21 50 mg ONCE ONE Administration Droperidol 5 mg 08/11/23 08:34 08/11/23 08:38 Droperidol 5mg/2ml Vial IV 08/11/23 08:35 5 mg ONCE ONE Administration Lactated Ringer's 1,000 mls @ 999 mls/hr 08/11/23 07:42 08/11/23 07:58 Lactated Ringer's 1000 Ml Bag IV 08/11/23 08:42 999 mls/hr .Q1H1M ONE Administration Midazolam HCl 5 mg 08/11/23 06:20 08/11/23 06:25 Midazolam 5mg/Ml 1ml Vial IM 08/11/23 06:21 5 mg ONCE ONE Administration Olanzapine 5 mg 08/11/23 07:43 08/11/23 07:57 Olanzapine 5 Mg Odt Tablet SL 08/11/23 07:44 5 mg ONCE ONE Administration Potassium Chloride 40 meq 08/11/23 07:42 08/11/23 07:57 Potassium Chloride 20meq Tab PO 08/11/23 07:43 40 meq ONCE ONE Administration ORDERS Category Date Time Status Acetaminophen Stat Lab 08/11/23 07:04 Completed Basic Metabolic Panel AMLAB Lab 08/12/23 06:00 Ordered Basic Metabolic Panel AMLAB Lab 08/13/23 06:00 Ordered Basic Metabolic Panel AMLAB Lab 08/14/23 06:00 Ordered CBC w/Auto Diff [Complete Blood Count Auto Diff] Stat Lab 08/11/23 07:04 Completed CMP [Comprehensive Metabolic Panel] Stat Lab 08/11/23 07:04 Completed Complete Blood Count Auto Diff AMLAB Lab 08/12/23 06:00 Ordered Complete Blood Count Auto Diff AMLAB Lab 08/13/23 06:00 Ordered Complete Blood Count Auto Diff AMLAB Lab 08/14/23 06:00 Ordered Ethyl Alcohol Stat Lab 08/11/23 07:04 Completed Salicylate Stat Lab 08/11/23 07:04 Completed T4 (Thyroxine) Stat Lab 08/11/23 07:04 Completed TSH [Thyroid Stimulating Hormone] Stat Lab 08/11/23 07:04 Completed UA [Urinalysis and Microscopic] Stat Lab 08/11/23 07:40 Completed UDS [Drug Screen,Urine] Stat Lab 08/11/23 07:40 Completed VBG [Venous Blood Gas] Stat RT 08/11/23 07:53 Completed ECG Data Tracing #1: Independently interpreted by me, rate is 90, rhythm is regular, axis is normal, no ST elevation in anatomical contiguous leads, significant chatter, QTc 435. Medical Decision Narrative: 63-year-old female with history of bipolar, panic disorder, PTSD, hepatitis C presents in police custody for medical clearance. They report concern for cocaine use. history was obtained interactive discussion with police. Patient is unable to provide any history of events secondary to psychosis. On arrival, patient is afebrile, normotensive, nontachycardic, manic in appearance, moving all extremities spontaneously. Full physical exam performed and significant for no obvious signs of trauma, clear lungs bilaterally. Differential includes but is not limited to ricardo, acute psychosis, intoxication, withdrawal Patient was given 5 mg IM Versed and 50 mg IM Benadryl for management of acute psychosis. Workup initiated including CBC CMP UA UDS TSH T4 Tylenol salicylate VBG ethanol. On re-evaluation, patient intermittently sleeping after administration of IM medications. At this time care handed off to oncoming physician. Suraj Henderson: Upon assumption of care patient has significantly pressured speech, tangential thoughts, paranoia. Initial workup reviewed by me, hematologic labs remarkable for REEMA, hypokalemia, acidosis which will be resuscitated with 40 mill equivalents of p.o. potassium, 1 L of crystalloid. After multiple discussions patient was ultimately convinced to take Zyprexa as she was adamantly against taking her aripiprazole. Given REEMA and disorganized to the point where she would not be safe in police custody patient will require admission. After medical clearance patient will ultimately require psychiatric evaluation whether or not inpatient management at a facility after medically cleared is appropriate versus stabilization on oral medications. The case was discussed with hospital medicine who admit the patient their service for continued evaluation at this time. Unfortunately prior to admission patient became increasingly agitated, not staying in her room threatening staff, verbal de-escalation was unsuccessful, prior medical therapy has been unsuccessful, given this please were contacted, patient is not medically cleared. Patient does not have capacity. 5 mg of droperidol will be administered IV while being physically restrained. Procedures <Steven Amanda MD - Last Filed: 08/11/23 07:00> Risk/Benefits of Procedure(s) Were Explained: Yes Critical Care <Steven Amanda MD - Last Filed: 08/11/23 07:00> Critical Care Time Critical Care Time: Yes Attestation: On 08/11/23, the high probability of a clinically significant, sudden or life threatening deterioration of the following system(s) psychiatric, respiratory required my full and direct attention, intervention and personal management. The time I documented below is in addition to time spent performing reported procedures but includes the following listed in this critical care notation. Total Time Total Critical Care Time: 40
[2023-08-11 07:06] VITALS: BP 105/88; PULSE 85; O2SAT 98
--- NOTE | 2023-08-11 07:10 | PC.NURSE ---
speaking with pt bc pt refused me doing ekg advised me to keep walking
[2023-08-11 07:18] LABS: Basophils # 0.1 K/mm3 (0-0.2); Basophils % 1.1 % (0.1-2.0); Eosinophils # 0.1 K/mm3 (0.0-0.4); Eosinophils % 0.9 % (0.1-12.0); Hematocrit 41.1 % (37.0-47.0); Hemoglobin 13.3 g/dL (12.2-16.2); Mean Corpuscular HGB Conc 32.3 g/dL (31.8-35.4); Mean Corpuscular Hemoglobin 30.3 pg (27.0-31.2); Mean Platelet Volume 8.6 fl (7.4-10.4); Monocytes # 0.4 K/mm3 (0.1-1.0); Monocytes % 5.1 % (1.7-9.3); Neutrophils # 5.9 K/mm3 (1.8-7.8); Neutrophils % 69.9 % (37.0-80.0); Platelet Count 215 K/mm3 (142-424); Red Blood Count 4.37 M/mm3 (4.20-5.40); White Blood Count 8.5 K/mm3 (4.8-10.8)
--- NOTE | 2023-08-11 07:20 | ECG_ITS ---
APPROVED REPORT Exam: Resting ECG HR:90 bpm ECG Measurements Heart Rate 90 AXES VA 165 P 79 QRSd 106 QRS 77 QT 387 T 65 QTc 435 Conclusion SINUS RHYTHM NORMAL ECG Electronically signed by : JOSELINE GUEVARA, 08/12/2023 06:09:35
[2023-08-11 07:24] LABS: Alanine Aminotransferase 25 U/L (12-78); Albumin Level 4.5 g/dl (3.5-5.0); Albumin/Globulin Ratio 1.7 (1.1-1.8); Alkaline Phosphatase 144 U/L (38-126); Anion Gap 14.3 mEq/L (5-15); Aspartate Amino Transferase 40 U/L (14-36); Bilirubin,Total 0.6 mg/dl (0.2-1.3); Blood Urea Nitrogen 23 mg/dl (7-17); Calcium 9.5 mg/dl (8.4-10.2); Carbon Dioxide 17 mmol/L (22.0-30.0); Chloride 112 mmol/L (98-107); Creatinine Clearance Estimated 21 mL/min (50-200); Estimated Glomerular Filt Rate 24 ml/min (>60); GFR (African American) 29 ML/MIN (>60); Globulin 2.6 g/dL (1.3-3.2); Glucose 94 mg/dl (74-100); Potassium 3.3 mmoL/L (3.5-5.1); Sodium 140 mmol/L (136-145); Total Protein,Serum 7.1 g/dl (6.3-8.2)
[2023-08-11 07:32] LABS: Acetaminophen < 10 ug/ml (10-30); Ethyl Alcohol < 10 mg/dl (0-10); Salicylate < 1.0 mg/dL (2.0-20.0)
[2023-08-11 07:50] LABS: Lactate Venous 1.7 mmol/L (0.4-2.0); VBG Base Excess -10.2 mmol/L (-2.4-2.3); VBG HCO3 16.3 mmol/L (23-30); VBG Oxygen Saturation 98.8 % (50-70); VBG PCO2 34.7 mmol/L (35-51); VBG PH 7.29 mmol/L (7.31-7.41); VBG PO2 160.2 mmol/L (28-40); VBG Total CO2 17.4 mmol/L (23-27)
[2023-08-11 07:51] LABS: Microscopic, Urine URINE MICROSCOPIC (MICROSCOPIC)
[2023-08-11 07:55] LABS: Thyroid Stimulating Hormone 3.43 uIU/mL (0.465-4.68)
[2023-08-11] MEDS: OLANZapine 5 MG ODT TABLET SL (07:57)
[2023-08-11] MEDS: POTASSIUM CHLORIDE 20MEQ TAB 40 MEQ PO (07:57)
[2023-08-11] MEDS: LACTATED RINGERS 1000ML 1,000 ML 999 ML IV (07:58)
--- NOTE | 2023-08-11 08:04 | PC.NURSE ---
pt continues to be paranoid and delusional. She was able to take po medications and currently has iv fluids infusing. breakfast tray in room
[2023-08-11 08:06] LABS: Appearance,Urine CLEAR (Clear); Blood, Urine 2+ (Negative); Color,Urine YELLOW (Yellow); Glucose,Urine (UA) Negative (Negative); Ketones,Urine Negative (Negative); Leukocyte Esterase,Urine TRACE (Negative); Nitrate,Urine Negative (Negative); PH,Urine 5.5 (5.0-8.5); Protein,Urine TRACE (Negative); Specific Gravity, Urine >= 1.030 (1.005-1.030); Urobilinogen,Urine 0.2 EU/dl (0.2)
[2023-08-11 08:10] LABS: Bilirubin,Urine 1+ (Negative)
--- NOTE | 2023-08-11 08:20 | PC.NURSE ---
dispatched called for police assistance due to pt getting aggressive to staff. Walked in the room to calm patient who then stuck her finger in my face calling me a bitch and I'm a liar. Attempted to calm patient and redirect, unable to at this time. Pt unhooked from her IV fluids due to patient trying to pull apart her iv line. Pt then comes into the Er nurses station pointing her finger at staff and using profanity to staff. aware and witnessed pt behavior along with Dusty and Fabián. HS called for more assistance.
[2023-08-11 08:24] LABS: Bacteria,Urine 1+ /lpf; RBC,Urine 20-50 #/hpf (0-3); Squamous Epithelial Cell,Urine Occasional #/hpf (0-5); WBC,Urine Occasional #/hpf (0-3)
--- NOTE | 2023-08-11 08:34 | PC.NURSE ---
hit panic button for police to respond for pt starting to be aggressive
[2023-08-11] MEDS: droPERidol 5MG/2ML VIAL 5 MG IV (08:38)
[2023-08-11 08:39] LABS: Barbiturates Screen,Urine Negative ng/ml (<200)
[2023-08-11 08:40] LABS: Benzodiazepines Screen,Urine Positive ng/ml (<200)
[2023-08-11 08:41] LABS: Cannabinoid Screen,Urine Positive ng/ml (<50); Cocaine Screen,Urine Negative ng/ml (<300)
--- NOTE | 2023-08-11 08:41 | PC.NURSE ---
OFFICERS X2 AT BS
[2023-08-11 08:42] LABS: Methadone Screen,Urine Negative ng/ml (<300)
[2023-08-11 08:43] LABS: Opiate Screen,Urine Negative ng/ml (<300); Phencyclidine Screen,Urine Negative ng/ml (<25)
--- NOTE | 2023-08-11 08:45 | PC.NURSE ---
spoke with about pt admission, MD accepted, pt will remain in ER at this time.
--- NOTE | 2023-08-11 08:58 | PC.NURSE ---
unavailable at this time for recording vitals due to the pt being combative and not letting us acquire vitals
--- NOTE | 2023-08-11 09:12 | PC.NURSE ---
ATTEMPTED TO GET PT IN BED WERE SHE IS GETTING DROWSY IN CHAIR PT REFUSED AT THIS TIME,OFFICE SETTING OUTSIDE OF ROOM
--- NOTE | 2023-08-11 09:14 | HMH.PHAINT1 ---
Pharmacy Intervention Comments: USED LIST FROM OUTPATIENT PHARMACY TO VERIFY HOME MEDICATION LIST
--- NOTE | 2023-08-11 10:22 | PC.NURSE ---
report called to Viviana on 2nd floor
--- NOTE | 2023-08-11 10:30 | PC.NURSE ---
Pt arrived to the floor at this time
[2023-08-11 10:37] VITALS: BP 0/0; PULSE 0; RESP 16; TEMP -17.7; TEMP 0; O2SAT 0
--- NOTE | 2023-08-11 10:38 | PC.NURSE ---
pt refused all vitals or to let nursing assess her. transported to 2nd floor.
[2023-08-11 10:42] VITALS: BP 136/79; PULSE 73; RESP 18; TEMP 36.4; O2SAT 98; BMI 22.8
--- NOTE | 2023-08-11 10:50 | PC.NURSE ---
Patient refused to let RN do physical assessment. Pt aggressive and not wanting to speak to staff. Patient has pressured speech. Patient paranoid of staff and cursing at staff.
[2023-08-11 16:00] VITALS: BP 86/65; PULSE 73; RESP 18; TEMP 36.5; O2SAT 97
[2023-08-11] MEDS: 0.9 % SODIUM CHLORIDE 1000ML 1,000 ML 75 ML IV (17:14)
[2023-08-11] MEDS: hydrOXYzine pamoate 25MG CAPSULE 25 MG PO (17:15)
--- NOTE | 2023-08-11 17:57 | P.HP_ITS ---
History of Present Illness *Admission Date: 08/11/23 *Reason for visit:: Acute psychosis *History of present illness: Patient is a 63-year-old female with past medical history of PTSD psychosis generalized anxiety disorder, bipolar disorder who presents to the hospital due to possible drug overdose and medical clearance. Patient reportedly called 911, at home and on arrival of the police patient was not acting normal. Patient was brought to the hospital. Police had concern for cocaine use. At time of my evaluation patient denies chest pain shortness of breath nausea vomiting diarrhea constipation dysuria fevers and chills. She feels anxious and complains of difficulty falling asleep. [facility] Disclaimer: The information contained in this section may have been updated after the patient was seen, as this information can be updated by other users. Medical History (Updated 08/11/23 @ 17:59 by Romi Heard MD) delivery delivered Cervical cancer Bipolar 1 disorder Manic depression Anxiety PTSD (post-traumatic stress disorder) Family History Grandmother Diabetes Mother Alcoholism Cancer Diabetes Brother Alcoholism Diabetes Father Heart attack Grandfather Alcoholism Social History (Updated 08/11/23 @ 11:08 by Myra Wallace RN) Smoking Status: Unknown if ever smoked second hand exposure: Yes alcohol intake: current alcohol intake frequency: holidays/special occasions only substance use type: former substance user, marijuana, crack/cocaine, heroin, hallucinogens, club/fixture designer drugs, IV drugs, prescription drug and other current occupational status: retired Travel in the last 8 weeks: None household members: spouse housing: house number of children: 8 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 current occupational exposures/hazards: No caffeine: Yes Review of Systems Review of Systems Review of systems:: pertinent systems reviewed and negative unless documented below Meds Home Medications and Allergies Home Medications Medication Instructions Recorded Confirmed Type albuterol sulfate 90 mcg/actuation 2 puff inhalation QID PRN 01/19/23 08/11/23 Rx aerosol inhaler shortness of breath or wheezing #8.5 grams aripiprazole 5 mg tablet (Abilify) 5 mg PO DAILY #30 tabs 02/11/23 08/11/23 Rx prazosin 1 mg capsule 1 mg PO HS Nightmares #30 caps 02/11/23 08/11/23 Rx doxepin 25 mg capsule 25 mg PO HSP PRN sleep 08/11/23 08/11/23 History New Prescriptions to Start Prescriptions: Allergies Allergy/AdvReac Type Severity Reaction Status Date / Time No Known Allergies Allergy Verified 02/11/23 09:18 Exam Data for Last 24 hours Vital signs and Labs for Last 24 Hours: Temp Pulse Resp BP Pulse Ox O2 Del Method 97.7 F 73 18 86/65 L 97 Room Air 08/11/23 16:00 08/11/23 16:00 08/11/23 16:00 08/11/23 16:00 08/11/23 16:00 08/11/23 16:00 Laboratory Results - last 24 hr 08/11/23 07:04: WBC 8.5, RBC 4.37, Hgb 13.3, Hct 41.1, MCV 94.0, MCH 30.3, MCHC 32.3, RDW 14.0, Plt Count 215, MPV 8.6, Neut % (Auto) 69.9, Lymph % (Auto) 23.0, [place] % (Auto) 5.1, Eos % (Auto) 0.9, Baso % (Auto) 1.1, Neut # (Auto) 5.9, Lymph # (Auto) 2.0, [place] # (Auto) 0.4, Eos # (Auto) 0.1, Baso # (Auto) 0.1, Sodium 140, Potassium 3.3 L, Chloride 112 H, Carbon Dioxide 17 L, Anion Gap 14.3, BUN 23 H, Creatinine 2.10 H, Estimated Creat Clear 21, Estimated GFR 24 L, Est GFR ( Amer) 29 L, Glucose 94, Calcium 9.5, Total Bilirubin 0.6, AST 40 H, ALT 25, Alkaline Phosphatase 144 H, Total Protein 7.1, Albumin 4.5, Globulin 2.6, Albumin/Globulin Ratio 1.7, TSH 3.43, Thyroxine (T4) 8.0, Salicylates < 1.0 L, Acetaminophen < 10 L, Plasma/Serum Alcohol < 10 08/11/23 07:40: Urine Color Yellow, Urine Appearance Clear, Urine pH 5.5, Ur Specific [place] >= 1.030, Urine Protein Trace, Urine Glucose (UA) Negative, Urine Ketones Negative, Urine Blood 2+, Urine Nitrate Negative, Urine Bilirubin 1+ A, Urine Urobilinogen 0.2, Ur Leukocyte Esterase Trace, Urine RBC 20-50, Urine WBC Occasional, Ur Squamous Epith Cells Occasional, Urine Bacteria 1+, Hyaline Casts 3-5, Urine Opiates Screen Negative, Urine Methadone Screen Negative, Ur Barbituates Screen Negative, Ur Phencyclidine Scrn Negative, Ur Amphetamines Screen TNP, U Benzodiazepines Scrn Positive H, Urine Cocaine Screen Negative, U Marijuana (THC) Screen Positive H 08/11/23 07:53: VBG pH 7.29 L, VBG pCO2 34.7 L, VBG pO2 160.2 H, VBG HCO3 16.3 L , VBG Total CO2 17.4 L, VBG O2 Saturation 98.8 H, VBG Base Excess -10.2 L, VBG Lactic Acid 1.7 I & O for Last 24 hours: Intake & Output 08/08/23 08/09/23 08/10/23 08/11/23 23:59 23:59 23:59 23:59 Output Total 0 / 0 Balance 0 / 0 Weight 68.039 kg Constitutional Constitutional: no acute distress *Routine HEENT Exam Head: Present normocephalic Eye: Present EOMI and PERRL ENT: Present mucous membranes moist *Routine Neck Exam Neck: Present supple; Absent lymphadenopathy *Routine Respiratory Exam Respiratory: Present CTA bilaterally *Routine Cardiovascular Exam Cardiovascular: Present RRR *Routine Abdominal Exam Abdominal: Present soft and normoactive bowel sounds; Absent tenderness *Routine Rectal Exam Rectal:: deferred *Routine Genitalia Exam Genitalia:: deferred *Routine Extremities Exam Extremities: Absent cyanosis, clubbing or edema *Routine Skin Exam Skin: Present warm; Absent rash *Routine Neurological Exam Neurological: Present alert and oriented X3 Assessment and Plan *Assessment and plan (1) Psychosis: Status: Acute Category: Medical Code(s): F29 - Unspecified psychosis not due to a substance or known physiological condition (2) PTSD (post-traumatic stress disorder): Status: Acute Category: Medical Code(s): F43.10 - Post-traumatic stress disorder, unspecified (3) Generalized anxiety disorder with panic attacks: Status: Acute Category: Medical Code(s): F41.1 - Generalized anxiety disorder; F41.0 - Panic disorder [episodic paroxysmal anxiety] (4) Bipolar 1 disorder: Status: Acute Category: Medical Code(s): F31.9 - Bipolar disorder, unspecified (5) REEMA (acute kidney injury): Status: Acute Category: Medical Code(s): N17.9 - Acute kidney failure, unspecified (6) Hypokalemia: Status: Acute Category: Medical Code(s): E87.6 - Hypokalemia Plan Patient is a 63-year-old female with past medical history of PTSD psychosis generalized anxiety disorder, bipolar disorder who presents to the hospital due to possible drug overdose and medical clearance. Patient reportedly called 911, at home and on arrival of the police patient was not acting normal. Patient was brought to the hospital. Police had concern for cocaine use. At time of my evaluation patient denies chest pain shortness of breath nausea vomiting diarrhea constipation dysuria fevers and chills. She feels anxious and complains of difficulty falling asleep. Assessment Acute psychosis likely drug overdose Hypokalemia Acute kidney injury Substance abuse History of PTSD, generalized anxiety disorder, psychosis, bipolar disorder Plan As needed Zyprexa for agitation Urine drug screen positive for marijuana, benzodiazepines, reportedly patient is not on prescribed benzodiazepines Start IV fluids Monitor and replace electrolytes Monitor creatinine Closely monitor for psychosis, low threshold for consulting psychiatry service DVT prophylaxis-heparin
[2023-08-11 20:00] VITALS: BP 115/69; PULSE 71; RESP 16; TEMP 36.7; O2SAT 97
[2023-08-11] MEDS: DOXEPIN HCL 25 MG CAPSULE PO (20:34)
[2023-08-11] MEDS: PRAZOSIN 1MG CAP 1 MG PO (20:34)
[2023-08-12] MEDS: hydrOXYzine pamoate 25MG CAPSULE 25 MG PO (03:06)
[2023-08-12] MEDS: diphenhydrAMINE 25MG CAPSULE 25 MG PO (03:06)
[2023-08-12 04:00] VITALS: BP 119/66; PULSE 66; RESP 16; TEMP 36.6; O2SAT 95; BMI 21.5
--- NOTE | 2023-08-12 04:40 | PC.NURSE ---
Pt is alert and oriented when awake, but pt can be anxious/agitated. Pt has not been aggressive thus far into the shift and has rested peacefully. Pt did get agitated about taking the IV pole to the restroom and having help, assured the pt we were here to help with her needs to keep her safe. She wants to go to the restroom independently. Pt did eat a sandwich and has had several beverages throughout shift. This RN assessed the patient to the best of her ability and to the best comfort level of the patient. Pt wishes to rest,, PRN medications given at request. Pt repeatedly speaks about not knowing why she is here, how long she will stay, and where she will go when she leaves. Pt has used the call light when needed. Call light in reach.
[2023-08-12] MEDS: 0.9 % SODIUM CHLORIDE 1000ML 1,000 ML 75 ML IV (05:23)
[2023-08-12 06:03] LABS: Basophils % 0.9 % (0.1-2.0); Eosinophils # 0.1 K/mm3 (0.0-0.4); Eosinophils % 2.2 % (0.1-12.0); Hemoglobin 12.4 g/dL (12.2-16.2); Lymphocytes # 1.2 K/mm3 (0.7-4.5); Lymphocytes % 25.5 % (10-50); Mean Corpuscular HGB Conc 31.8 g/dL (31.8-35.4); Mean Corpuscular Hemoglobin 30.4 pg (27.0-31.2); Mean Corpuscular Volume 95.7 fl (81-99); Mean Platelet Volume 8.6 fl (7.4-10.4); Monocytes # 0.3 K/mm3 (0.1-1.0); Monocytes % 5.6 % (1.7-9.3); Neutrophils % 65.8 % (37.0-80.0); Platelet Count 172 K/mm3 (142-424); Red Blood Count 4.08 M/mm3 (4.20-5.40); Red Cell Distribution Width 14.4 % (11.5-17.5); White Blood Count 4.5 K/mm3 (4.8-10.8)
[2023-08-12 06:12] LABS: Anion Gap 6.8 mEq/L (5-15); Blood Urea Nitrogen 20 mg/dl (7-17); Calcium 8.8 mg/dl (8.4-10.2); Carbon Dioxide 20 mmol/L (22.0-30.0); Chloride 116 mmol/L (98-107); Creatinine Clearance Estimated 58 mL/min (50-200); Estimated Glomerular Filt Rate 56 ml/min (>60); GFR (African American) 68 ML/MIN (>60); Glucose 89 mg/dl (74-100); Potassium 3.8 mmoL/L (3.5-5.1); Sodium 139 mmol/L (136-145)
[2023-08-12 07:23] VITALS: BP 106/76; PULSE 92; RESP 18; TEMP 36.7; O2SAT 96
[2023-08-12] MEDS: ARIPiprazole 10MG TABLET 5 MG PO (09:27)
--- NOTE | 2023-08-12 09:55 | P.DS_ITS ---
General Admission date:: 08/11/23 Discharge date: 08/12/23 HPI HPI HPI: Patient is a 63-year-old female with past medical history of PTSD psychosis generalized anxiety disorder, bipolar disorder who presents to the hospital due to possible drug overdose and medical clearance. Patient reportedly called 911, at home and on arrival of the police patient was not acting normal. Patient was brought to the hospital. Police had concern for cocaine use. At time of my evaluation patient denies chest pain shortness of breath nausea vomiting diarrhea constipation dysuria fevers and chills. She feels anxious and c omplains of difficulty falling asleep. Hospital Course Hospital Course Hospital Course: Patient is a 63-year-old female with past medical history of PTSD psychosis generalized anxiety disorder, bipolar disorder who presents to the hospital due to possible drug overdose and medical clearance. Patient reportedly called 911, at home and on arrival of the police patient was not acting normal. Patient was brought to the hospital. Police had concern for cocaine use. At time of my evaluation patient denies chest pain shortness of breath nausea vomiting diarrhea constipation dysuria fevers and chills. She feels anxious and complains of difficulty falling asleep. Assessment Acute psychosis likely drug overdose - improved Hypokalemia - resolved Acute kidney injury - resolved Substance abuse - counselled to f/u with PCP History of PTSD, generalized anxiety disorder, psychosis, bipolar disorder stable for dc Exam Data for Last 24 hours Vital signs and Labs for Last 24 Hours: Temp Pulse Resp BP Pulse Ox O2 Del Method 98.1 F 92 H 18 106/76 L 96 Room Air 08/12/23 07:23 08/12/23 07:23 08/12/23 07:23 08/12/23 07:23 08/12/23 07:23 08/12/23 07:23 Laboratory Results - last 24 hr 08/12/23 05:45: WBC 4.5 L D, RBC 4.08 L, Hgb 12.4, Hct 39.0, MCV 95.7, MCH 30.4, MCHC 31.8, RDW 14.4, Plt Count 172, MPV 8.6, Neut % (Auto) 65.8, Lymph % (Auto) 25.5, [place] % (Auto) 5.6, Eos % (Auto) 2.2, Baso % (Auto) 0.9, Neut # (Auto) 3.0, Lymph # (Auto) 1.2, [place] # (Auto) 0.3, Eos # (Auto) 0.1, Baso # (Auto) 0.0, Sodium 139, Potassium 3.8, Chloride 116 H, Carbon Dioxide 20 L, Anion Gap 6.8, BUN 20 H, Creatinine 1.00 D, Estimated Creat Clear 58, Estimated GFR 56 L, Est GFR ( Amer) 68 D, Glucose 89, Calcium 8.8 I & O for Last 24 hours: Intake & Output 08/09/23 08/10/23 08/11/23 08/12/23 23:59 23:59 23:59 23:59 Intake Total 540 / 540 335 / 335 Output Total 0 / 0 0 / 0 Balance 540 / 540 335 / 335 Weight 68.039 kg 64.501 kg Constitutional Constitutional: no acute distress *Routine HEENT Exam Head: Present normocephalic Eye: Present EOMI and PERRL ENT: Present mucous membranes moist *Routine Neck Exam Neck: Present supple; Absent lymphadenopathy *Routine Respiratory Exam Respiratory: Present CTA bilaterally *Routine Cardiovascular Exam Cardiovascular: Present RRR *Routine Abdominal Exam Abdominal: Present soft and normoactive bowel sounds; Absent tenderness *Routine Extremities Exam Extremities: Absent cyanosis, clubbing or edema *Routine Skin Exam Skin: Present warm; Absent rash *Routine Neurological Exam Neurological: Present alert and oriented X3 Results Data Completed and Pending Labs on day of discharge: Labs from last 24 hours 08/12/23 05:45 WBC 4.5 L D RBC 4.08 L Hgb 12.4 Hct 39.0 MCV 95.7 MCH 30.4 MCHC 31.8 RDW 14.4 Plt Count 172 MPV 8.6 Neut % (Auto) 65.8 Lymph % (Auto) 25.5 [place] % (Auto) 5.6 Eos % (Auto) 2.2 Baso % (Auto) 0.9 Neut # (Auto) 3.0 Lymph # (Auto) 1.2 [place] # (Auto) 0.3 Eos # (Auto) 0.1 Baso # (Auto) 0.0 Sodium 139 Potassium 3.8 Chloride 116 H Carbon Dioxide 20 L Anion Gap 6.8 BUN 20 H Creatinine 1.00 D Estimated Creat Clear 58 Estimated GFR 56 L Est GFR ( Amer) 68 D Glucose 89 Calcium 8.8 DS: Diagnosis Discharge Diagnosis (1) Psychosis: Status: Acute Code(s): F29 - Unspecified psychosis not due to a substance or known physiological condition (2) PTSD (post-traumatic stress disorder): Status: Acute Code(s): F43.10 - Post-traumatic stress disorder, unspecified (3) Generalized anxiety disorder with panic attacks: Status: Acute Code(s): F41.1 - Generalized anxiety disorder; F41.0 - Panic disorder [episodic paroxysmal anxiety] (4) Bipolar 1 disorder: Status: Acute Code(s): F31.9 - Bipolar disorder, unspecified (5) REEMA (acute kidney injury): Status: Acute Code(s): N17.9 - Acute kidney failure, unspecified (6) Hypokalemia: Status: Acute Code(s): E87.6 - Hypokalemia Meds Home Medications and Allergies Home Medications Medication Instructions Recorded Confirmed Type albuterol sulfate 90 mcg/actuation 2 puff inhalation QID PRN 01/19/23 08/11/23 Rx aerosol inhaler shortness of breath or wheezing #8.5 grams aripiprazole 5 mg tablet (Abilify) 5 mg PO DAILY #30 tabs 02/11/23 08/11/23 Rx prazosin 1 mg capsule 1 mg PO HS Nightmares #30 caps 02/11/23 08/11/23 Rx doxepin 25 mg capsule 25 mg PO HSP PRN sleep 08/11/23 08/11/23 History New Prescriptions to Start Prescriptions: Allergies Allergy/AdvReac Type Severity Reaction Status Date / Time No Known Allergies Allergy Verified 02/11/23 09:18 Discharge Plan Disposition Patient Disposition: Home, Self-Care Condition: Good Follow up Plan Follow up with: Fawn Bahena APRN [Nurse Practitioner] - 08/18/23 1:00 pm Prescriptions/Medication Reconciliation: Continued aripiprazole [Abilify] 5 mg tablet 5 mg PO DAILY Qty: 30 3RF prazosin 1 mg capsule 1 mg PO HS Qty: 30 2RF albuterol sulfate 90 mcg/actuation HFA aerosol inhaler 2 puff inhalation QID PRN (Reason: shortness of breath or wheezing) Qty: 8.5 10RF doxepin 25 mg capsule 25 mg PO HSP PRN (Reason: sleep) Problem Reconciliation Problems Reviewed?: Yes Patient Discharge Instructions ACTIVITY: Ambulate as tolerated DIET: continue same diet Patient Instructions: Acute Kidney Injury, DI for Acute Kidney Injury Providers Primary Care Provider: Provider,Referral Admit Provider: Romi Heard Attending Provider: Romi Heard
== END 2023-08-12 12:50 | disposition home or self-care (01) ==
LOC: ER 06:59 → 2ND 10:52
PROVIDERS: Emergency Medicine; Admitting Provider Internal Medicine; Emergency Provider Emergency Medicine; Visit Provider Internal Medicine
DX: T50.901A Poisoning by unspecified drugs, medicaments and biological substances, accidental (unintentional), initial encounter (principal); N17.9 Acute kidney failure, unspecified; E87.6 Hypokalemia; F31.9 Bipolar disorder, unspecified
CPT/HCPCS: 36415; 80048; 80053; 80307; 80324; 80329; 81001; 82803; 84436; 84443; 85025; 93005; 99291; G0378; J1790

== ENCOUNTER 2024-05-10 10:39 | Outpatient (CLI) | payer MEDICARE, SELFPAY ==
[2024-05-10 17:59] LABS: Coronavirus 19, PCR Not Detected (NotDetected); Influenza A, PCR Not Detected (NotDetected); Influenza B, PCR Not Detected (NotDetected)
== END 2024-05-10 23:59 | disposition home or self-care (01) ==
LOC: LAB.DROPOF 05-11 11:29
PROVIDERS: PCP Student in an Organized Health Care Education/Training Program; Visit Provider Student in an Organized Health Care Education/Training Program
DX: R50.9 Fever, unspecified (principal)
CPT/HCPCS: 87636

== ENCOUNTER 2024-05-18 13:45 | Outpatient (CLI) | payer MEDICARE, SELFPAY ==
[2024-05-18 19:13] LABS: Basophils # 0.1 K/mm3 (0-0.2); Basophils % 0.6 % (0.1-2.0); Eosinophils # 0.2 K/mm3 (0.0-0.4); Eosinophils % 2.6 % (0.1-12.0); Hematocrit 40.8 % (37.0-47.0); Lymphocytes # 2.9 K/mm3 (0.7-4.5); Lymphocytes % 32.1 % (10-50); Mean Corpuscular HGB Conc 31.9 g/dL (31.8-35.4); Mean Corpuscular Hemoglobin 29.7 pg (27.0-31.2); Mean Corpuscular Volume 93.2 fl (81-99); Mean Platelet Volume 10.8 fl (7.4-10.4); Monocytes # 0.5 K/mm3 (0.1-1.0); Monocytes % 5.6 % (1.7-9.3); Neutrophils # 5.3 K/mm3 (1.8-7.8); Neutrophils % 58.9 % (37.0-80.0); Platelet Count 274 K/mm3 (142-424); Red Blood Count 4.38 M/mm3 (4.20-5.40)
[2024-05-18 19:37] LABS: Alanine Aminotransferase 23 U/L (12-78); Albumin Level 4.2 g/dl (3.5-5.0); Albumin/Globulin Ratio 1.8 (1.1-1.8); Alkaline Phosphatase 151 U/L (38-126); Anion Gap 14.1 mEq/L (5-15); Aspartate Amino Transferase 32 U/L (14-36); Blood Urea Nitrogen 21 mg/dl (7-17); Carbon Dioxide 26 mmol/L (22.0-30.0); Chloride 104 mmol/L (98-107); Chol/HDL Ratio 2.5 (1-3.5); Cholesterol 186 mg/dl (140-200); Estimated Glomerular Filt Rate 63 ml/min (>60); GFR (African American) 76 ML/MIN (>60); Globulin 2.4 g/dL (1.3-3.2); Glucose 86 mg/dl (74-100); HDL Cholesterol 74 mg/dl (40-60); Potassium 4.1 mmoL/L (3.5-5.1); Sodium 140 mmol/L (136-145); Total Protein,Serum 6.6 g/dl (6.3-8.2); Triglycerides 187 mg/dl (30-150); VLDL Cholesterol 37 mg/dL (0-40)
[2024-05-18 19:39] LABS: Bilirubin,Total 0.1 mg/dl (0.2-1.3)
[2024-05-18 19:48] LABS: Direct LDL Cholesterol 62.77 mg/dL (100-129)
[2024-05-18 19:57] LABS: 25-OH Vitamin D, Total < 12.8 ng/mL (30-100)
[2024-05-18 20:03] LABS: Thyroid Stimulating Hormone 1.97 uIU/mL (0.465-4.68)
[2024-05-18 20:50] LABS: HIV Combo NEGATIVE (Negative)
[2024-05-18 20:58] LABS: Hepatitis C Ab Qual. W/ RFX REACTIVE (Negative)
== END 2024-05-18 23:59 | disposition home or self-care (01) ==
LOC: LAB.DROPOF 05-19 10:40
PROVIDERS: PCP Family Medicine; Visit Provider Family Medicine
DX: Z76.89 Persons encountering health services in other specified circumstances (principal); F43.10 Post-traumatic stress disorder, unspecified; F51.05 Insomnia due to other mental disorder; F40.9 Phobic anxiety disorder, unspecified; F41.1 Generalized anxiety disorder; F41.0 Panic disorder [episodic paroxysmal anxiety]; F31.4 Bipolar disorder, current episode depressed, severe, without psychotic features; R53.83 Other fatigue; R76.8 Other specified abnormal immunological findings in serum; J44.9 Chronic obstructive pulmonary disease, unspecified; R03.0 Elevated blood-pressure reading, without diagnosis of hypertension; Z72.89 Other problems related to lifestyle
CPT/HCPCS: 80053; 80061; 82306; 84443; 85025; 86803; 87389; 87522

== ENCOUNTER 2025-04-08 11:50 | Outpatient (CLI) | payer MEDICARE, MEDICAID, SELFPAY ==
[2025-04-08 20:24] LABS: Hematocrit 44.4 % (37.0-47.0); Hemoglobin 14.3 g/dL (12.2-16.2); Immature Granulocytes % 0.2 %; Mean Corpuscular HGB Conc 32.2 g/dL (31.8-35.4); Mean Corpuscular Hemoglobin 30.1 pg (27.0-31.2); Mean Corpuscular Volume 93.5 fl (81-99); Nucleated Red Blood Cells % 0 %; Platelet Count 255 K/mm3 (142-424); Red Blood Count 4.75 M/mm3 (4.20-5.40); Red Cell Distribution Width-SD 42.2 fL; White Blood Count 9.4 K/mm3 (4.8-10.8)
[2025-04-08 21:31] LABS: Alanine Aminotransferase 11 U/L (12-78); Albumin Level 4.5 g/dl (3.5-5.0); Albumin/Globulin Ratio 1.4 (1.1-1.8); Alkaline Phosphatase 162 U/L (38-126); Anion Gap 9.0 mEq/L (5-15); Aspartate Amino Transferase 25 U/L (14-36); Bilirubin,Total 0.5 mg/dl (0.2-1.3); Blood Urea Nitrogen 16 mg/dl (7-17); Calcium 9.8 mg/dl (8.4-10.2); Carbon Dioxide 30 mmol/L (22.0-30.0); Chloride 105 mmol/L (98-107); Creatinine,Serum 0.80 mg/dl (0.52-1.04); Estimated Glomerular Filt Rate 72 ml/min (>60); GFR (African American) 87 ML/MIN (>60); Globulin 3.2 g/dL (1.3-3.2); Glucose 95 mg/dl (74-100); Lipase 64 U/L (23-300); Magnesium 2.0 mg/dl (1.6-2.3); Potassium 5.0 mmoL/L (3.5-5.1); Sodium 139 mmol/L (136-145); Total Protein,Serum 7.7 g/dl (6.3-8.2)
[2025-04-08 21:48] LABS: Free T4 (Free Thyroxine) 1.18 ng/dl (0.78-2.19)
[2025-04-08 22:01] LABS: Thyroid Stimulating Hormone 0.78 uIU/mL (0.465-4.68)
--- OUTSIDE RECORDS SUMMARY | 2025-04-09 11:53 | XMS_ITS | Clinical Summary ---
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 Name Role Phone Unavailable Primary Care Provider Unavailabl e Allergies No known active allergies Medications No known medications Social History Tobacco Use Types Packs/Day Years Used Date Smoking Tobacco: Every Day Cigarettes Smokeless Tobacco: Never Tobacco Cessation:Ready to Q uit: Not Asked; Counseling Given: Not Answered Food Insecurity Answer Date Recorded Food run out past 12 months Not on file 04/11 Food did not last past 12 months Not on file 04/28/2023 Employment Answer Date Recorded Help finding and keeping a job Not on file 0 04/28/2023 Family and Community Support Answer William e Recorded Help with Day to Day Activities Not on file 04/28/2023 Feeling Lonely or Isolated Not on file 04/28 Educational Attainment Answer Date Joe rded Speak language other than [place] at home Not on file 04/28/2023 Want help with school or training Not on file 04/28/2023 Substance Use Answer Date Recorded Used prescription meds for non-medical reasons N ot on file 04/28/2023 Used illegal drugs past 12 months Not on file 04/28/2023 Comments No Sex and Gender Information Value Date Recorded Sex Assigned at Not on file Legal Sex Female 10:16 AM CDT Gender Identity Not on file Sexual Orientation Not on file Last Filed Vital Signs Vital Sign Reading Time Taken Comments Blood Pressure 134/82 09/13/2022 11:24 AM EDT Pulse 78 09/13/2022 11:24 AM EDT Temperature 36.9 C (98.4 F) 09/13/2022 11:24 AM EDT Respiratory Rate 18 09/13/2022 11:24 AM EDT Oxygen Saturation 99% 09/13/2022 11:24 AM EDT Inhaled Oxygen Concentration - - Weight 68 kg (150 lb) 09/13/2022 11:24 AM EDT Height 180.3 cm (5' 11 ) 09/13/2022 11:24 AM EDT Body Mass Index 20.92 09/13/2022 11:24 AM EDT Plan of Treatment Health Maintenance Due Date Last Done Comments CT Colonography 1959 Colonoscopy 1959 Colorectal Cancer Screening 1959 DXA SCAN 1959 FOBT/FIT 1959 Fit-DNA (Cologuard) 1959 Sigmoidoscopy 1959 Depression Screening (12+) 1971 Hepatitis C Screening 1977 DTAP/TDAP/TD VACCINES (1 - Tdap) 1978 Pneumococcal 50+ years (1 of 2 - PCV) 1978 Breast Cancer Screening 1999 Shingles Vaccine (Zoster) (1 of 2) 2009 Tobacco Cessation Counseling and Screening (12+) 09/11/2023 09/10/2022 Falls Risk Screening 04/11/2024 COVID-19 VACCINE ( season) 2024 03/02/2021, 08/28/2020, 07/29/2020 Influenza Vaccine (#1) 2024 Respiratory Syncytial Virus (RSV) Adult or (1 - 1-dose 75+ series) [address] [place] [address] [facility]
--- OUTSIDE RECORDS SUMMARY | 2025-04-09 11:53 | XMS_ITS | Clinical Summary ---
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
--- OUTSIDE RECORDS SUMMARY | 2025-04-09 11:53 | XMS_ITS | Encounter Summary ---
Author Organization Healthcare Address [address] [place] [address] Care Team Providers Care Wood Model Builder Name Role Phone Unavailable Primary Care Provider Unavailabl e Encounter Details Date Type Department Care Team (Late st Contact Info) Description 11/02/2023 Lab Requisition [facility] [address] [place] [address] Wagner Serrato PA [address] [place] [address] Routine general medical examination at a health care facility Social History Tobacco Use Types Packs/Day Years Used Date Smoking Tobacco: Never Assessed Comments Unknown Sex and Gender Information Value Date Recorded Sex Assigned at Not on file Legal Sex Female 7:09 PM EDT Gender Identity Not on file Sexual Orientation Not on file documented as of this encounter Plan of Treatment Not on file documented as of this encounter Procedures Procedure Name Priority Date/Time Associated Diagnosis Comments HEPATITIS C VIRUS (HCV) QUANTITATIVE PCR Routine 11/02/2023 8:02 AM EDT Routine general medical examination at a [facility] SERUM DRUG SCREEN Routine 11/02/2023 8:0 2 AM EDT Routine general medical examination at a health care facility ACUTE HEPATITIS PANEL Routine 11/02/2023 8:02 AM EDT Routine general medical examination at a health care facility CBC WITH AUTO DIFFERENTIAL Routine 11/02/2023 8:02 AM EDT Routine general medical examination at a health care facility HEMOGLOBIN A1C Routine 11/02/2023 8:02 AM EDT Routine general medical examination at a [facility] facility FOLATE, SERUM Routine 11/02/2023 8:02 AM EDT Routine general medical examination at a [facility] facility VITAMIN B12, SERUM Routine 11/02/2023 8: 02 AM EDT Routine general medical examination at a [facility] facility VITAMIN D 25 HYDROXY Routine 11/02/2023 8:00 AM EDT Routine general medical examination at a [facility] facility HCG, QUANTITATIVE Routine 11/02/2023 8:0 0 AM EDT Routine general medical examination at [facility] facility TSH Routine 11/02/2023 8:00 AM EDT Routine general medical examination at [facility] facility FREE T4, PLASMA Routine 11/02/2023 8:00 AM EDT Routine general medical examination at [facility] facility LIPID PROFILE, PLASMA Routine 11/02/2023 8:00 AM EDT Routine general medical examination at [facility] facility COMPREHENSIVE METABOLIC PANEL, PLASMA Routine 11/02/2023 8:00 AM EDT Routine general medical examination at [facility] facility documented in this encounter Results * Hepatitis C Virus (HCV) Quantitative PCR (11/02/2023 8:02 AM EDT) Pathologist [facility] Hepatitis C Virus (HCV) Quantitative Interpretation Not Detected Not Detected . 11/03/2023 2:22 PM EDT [facility] Blood Venous blood specimen / Unknown Venipuncture / Unknown 11/02/2023 8:02 AM EDT 11/02/2023 8:47 AM EDT [facility] - 11/03/2023 2:22 PM EDT The Lang M2000 HCV test is a Real Time in vitro nucleic acid amplification test for the quantitation of Hepatitis C Viral (HCV) RNA in human serum in HCV-infected individuals. It is intended for use as an aid in the management of HCV-infected individuals undergoing anti-viral therapy. The dynamic range for this test is log10 = 1.08 to 8.00 and/or 12 to 100,000,000 IU/mL. The limit of detection (LOD) for this assay is 12 IU/mL and the limit of quantitation (LOQ) is 12 IU/mL. This assay is FDA approved for clinical use. [facility] BLOOD ORDERABLES Final Re sult Performing Organization Address [facility] de Phone Number HEALTHCARE [facility] [address] [place] [address] * Hemoglobin A1c (11/02/2023 8:02 AM EDT) Hemoglobin A1c 5.0 <5.7 % 11/02/2023 12:04 PM EDT [facility] Blood Venous blood specimen / Unknown Venipuncture / Unknown 11/02/2023 8:02 AM EDT 11/02/2023 8:51 AM EDT Narrative [facility] - 11/02/2023 12:04 PM EDT HA1C Interpretive Data: Diagnosis of Diabetes: Diabetic > or = 6.5% Pre-diabetic 5.7 to 6.4% Non-diabetic < or = 5.6% Glycemic Targets for Type I and Type II Diabetics: Non- Adults <7.0% Adults <6.0% Children and Adolescents <7.5% Source: [place] [employer]. Standards of medical care in diabetes,2017. Diabetes Care.2017:40 (suppl 1):S1-S135. HbA1c assay performed by an ion-exchange chromatography method that is certified traceable to the DCCT. [facility] BLOOD ORDERABLES Final Re sult Performing Organization Address [facility] de Phone Number [facility] [address] [place] [address] * (ABNORMAL) Serum Drug Screen (11/02/2023 8:02 AM EDT) 9 Carboxy THC 11(H) <5 ng/mL 11/05/2023 9:13 PM EDT [facility] Alprazolam <5 <5 ng/mL 11/05/2023 9:13 PM EDT [facility] Amphetamine <10 <10 ng/mL 11/05/2023 9:13 PM EDT [facility] Benzolyecgonine 892(H) <20 ng/mL 9:13 PM EDT [facility] Buprenorphine <1 <1 ng/mL 11/05/2023 9:13 PM EDT [facility] Butalbital <50 <50 ng/mL 11/05/2023 9:13 PM EDT [facility] Clonazepam <5 <5 ng/mL 11/05/2023 9:13 PM EDT [facility] Codeine <5 <5 ng/mL 11/05/2023 9:13 PM EDT [facility] Diazepam <5 <5 ng/mL 11/05/2023 9:13 PM EDT [facility] Fentanyl <1 <1 ng/mL 11/05/2023 9:13 PM EDT [facility] Hydrocodone <2 <2 ng/mL 11/05/2023 9:13 PM EDT [facility] Hydromorphone <5 <5 ng/mL 11/05/2023 9:13 PM EDT [facility] Lorazepam <5 <5 ng/mL 11/05/2023 9:13 PM EDT [facility] MDA <10 <10 ng/mL 11/05/2023 9:13 PM EDT [facility] MDMA <10 <10 ng/mL 11/05/2023 9:13 PM EDT [facility] Meperidine <5 <5 ng/mL 11/05/2023 9:13 PM EDT [facility] Methadone <10 <10 ng/mL 11/05/2023 9:13 PM EDT [facility] Methadone Metabolite <10 <10 ng/mL 10/10 9:13 PM EDT [facility] Methamphetamine <10 <10 ng/mL 9:13 PM EDT [facility] Midazolam <5 <5 ng/mL 11/05/2023 9:13 PM EDT [facility] Morphine <2 <2 ng/mL 11/05/2023 9:13 PM EDT [facility] Norbuprenorphine <5 <5 ng/mL 11/05/19 9:13 PM EDT [facility] Nordiazepam <10 <10 ng/mL 11/05/2023 9:13 PM EDT [facility] Oxazepam <5 <5 ng/mL 11/05/2023 9:13 PM EDT [facility] Oxycodone <2 <2 ng/mL 11/05/2023 9:13 PM EDT [facility] Oxymorphone <2 <2 ng/mL 11/05/2023 9:13 PM EDT [facility] Phenobarbital <50 <50 ng/mL 11/05/2023 9:13 PM EDT [facility] Temazepam <5 <5 ng/mL 11/05/2023 9:13 PM EDT [facility] Tramadol <20 <20 ng/mL 11/05/2023 9:13 PM EDT [facility] Blood Venous blood specimen / Unknown Venipuncture / Unknown 11/02/2023 8:02 AM EDT 11/02/2023 9:20 AM EDT Narrative [facility] - 11/05/2023 9:13 PM EDT Test performed by LC-MS/MS at the [facility]. This test was developed and its performance characteristics determined by [facility]. It has not been cleared or approved by the FDA. The laboratory is regulated under CLIA as qualified to perform high-complexity testing. This test is used for clinical purposes. us Wagner PRIN[facility] BLOOD ORDERABLES Final Re sult [facility] [address] [place] [id number] * CBC and Differential (11/02/2023 8:02 AM EDT) WBC Count 5.43 3.70 - 10.30 10*3/uL LAB HEMATOLOGY METHOD 11/02/2023 11:33 AM EDT [facility] RBC Count 4.78 3.90 - 5.20 10*6/uL LAB HEMATOLOGY METHOD 11/02/2023 11:33 AM EDT [facility] HGB 14.5 11.2 - 15.7 g/dL LAB HEMATOLOGY METHOD 11/02/2023 11:33 AM EDT [facility] HCT 44.9 34.0 - 45.0 % LAB HEMATOLOGY METHOD 11/02/2023 11:33 AM EDT [facility] Platelet Count 210 155 - 369 10*3/uL LAB HEMATOLOGY METHOD 11/02/2023 11:33 AM EDT [facility] MCV 94 79 - 98 fL LAB HEMATOLOGY METHOD 11/02/2023 11:33 AM EDT [facility] MCH 30.3 26.0 - 32.0 pg LAB HEMATOLOGY METHOD 11/02/2023 11:33 AM EDT [facility] MCHC 32.3 30.7 - 35.5 g/dL LAB HEMATOLOGY METHOD 11/02/2023 11:33 AM EDT [facility] RDW 13.3 11.5 - 14.5 % LAB HEMATOLOGY METHOD 11/02/2023 11:33 AM EDT [facility] MPV 11.7 8.8 - 12.5 fL LAB HEMATOLOGY METHOD 11/02/2023 11:33 AM EDT [facility] nRBC 0.0 <=0.0 per 100 WBCs LAB HEMATOLOGY METHOD 11/02/2023 11:33 AM EDT [facility] Differential Type Automated LAB HEMATOLOGY METHOD 11/02/2023 11:33 AM EDT [facility] Neutrophils % 42.0 % LAB HEMATOLOGY METHOD 11/02/2023 11:33 AM EDT [facility] Lymphocytes % 49.0 % LAB HEMATOLOGY METHOD 11/02/2023 11:33 AM EDT [facility] Monocytes % 6.0 % LAB HEMATOLOGY METHOD 11/02/2023 11:33 AM EDT [facility] Eosinophils % 2.0 % LAB HEMATOLOGY METHOD 11/02/2023 11:33 AM EDT [facility] Basophils % 1.0 % LAB HEMATOLOGY METHOD 11/02/2023 11:33 AM EDT [facility] Immature Granulocytes % 0.0 % LAB HEMATOLOGY METHOD 11/02/2023 11:33 AM EDT [facility] Neutrophils Absolute 2.26 1.60 - 6.10 10*3/uL LAB HEMATOLOGY METHOD 11/02/2023 11:33 AM EDT [facility] Lymphocytes Absolute 2.63 1.20 - 3.90 10*3/uL LAB HEMATOLOGY METHOD 11/02/2023 11:33 AM EDT [facility] Monocytes Absolute 0.33 0.30 - 0.90 10*3/uL LAB HEMATOLOGY METHOD 11/02/2023 11:33 AM EDT [facility] Eosinophils Absolute 0.13 0.00 - 0.50 10*3/uL LAB HEMATOLOGY METHOD 11/02/2023 11:33 AM EDT [facility] Basophils Absolute 0.07 0.00 - 0.10 10*3/uL LAB HEMATOLOGY METHOD 11/02/2023 11:33 AM EDT [facility] Immature Granulocytes Absolute 0.01 0.00 - 0.06 10*3/uL LAB HEMATOLOGY METHOD 11/02/2023 11:33 AM EDT [facility] Blood Venous blood specimen / Unknown Venipuncture / Unknown 11/02/2023 8:02 AM EDT 11/02/2023 8:53 AM EDT Narrative [facility] - 11/02/2023 11:33 AM EDT Therapeutic decision making should be based on absolute values, rather than percentages. us Wagner [facility] BLOOD ORDERABLES Final Re sult Performing Organization Address [facility] Co de Phone Number HEALTHCARE [facility] [address] [place] [address] * Vitamin B12 (11/02/2023 8:02 AM EDT) Vitamin B12, Serum 419 210 - 1,033 pg/mL 11/02/2023 12:12 PM EDT [facility] Blood Venous blood specimen / Unknown Venipuncture / Unknown 11/02/2023 8:02 AM EDT 11/02/2023 8:54 AM EDT us Wagner [facility] BLOOD ORDERABLES Final Re sult Performing Organization Address [facility] Co de Phone Number [facility]ALTH[facility]ARE [facility] [address] [place] [phone] * Folate (11/02/2023 8:02 AM EDT) Folate, Serum 9.5 >4.8 ng/mL 11/02/2023 12:12 PM EDT [facility] Blood Venous blood specimen / Unknown Venipuncture / Unknown 11/02/2023 8:02 AM EDT 11/02/2023 8:54 AM EDT us Wagner [facility] BLOOD ORDERABLES Final Re sult Performing Organization Address [facility] Co de Phone Number [facility]ALTH[facility]ARE [facility] [address] [place] [address] * (ABNORMAL) Hepatitis panel, acute (11/02/2023 8:02 AM EDT) Hepatitis B Surf Antigen Negative Negative 11/02/2023 1:01 PM EDT [facility] Hepatitis C Antibody Positive(A) Negative 11/02/2023 1:01 PM EDT [facility] Comment:This specimen is keturah ng sent for confirmation by RT-PCR. Hepatitis A Antibody IgM Negative Negative 11/02/2023 1:01 PM EDT [facility] Hepatitis B Core Antibody IgM Negative Negative 11/02/2023 1:01 PM EDT [facility] Blood Venous blood specimen / Unknown Venipuncture / Unknown 11/02/2023 8:02 AM EDT 11/02/2023 8:47 AM EDT [facility] BLOOD ORDERABLES Final Re sult [facility] [address] [place] [address] * hCG, Total Beta, Quantitative, Plasma (11/02/2023 8:00 AM EDT) hCG, Total Beta 3.24 <5 mIU/mL 11/02/2023 12:07 PM EDT [facility] Blood Venous blood specimen / Unknown Venipuncture / Unknown 11/02/2023 8:00 AM EDT 11/02/2023 8:46 AM EDT Narrative [facility] - 11/02/2023 12:07 PM EDT Patients: Normal Range Premenopausal Female < 5 mIU/mL Male < 3 mIU/mL Postmenopausal Female < 8 mIU/mL The Saman Elecsys hCG+beta assay is standardized to the 4th IS for Chorionic Gonadotropin. The combination of the specific monoclonal antibodies used in this assay recognizes the holo-hormone, nicked forms of hCG, the Beta-core Fragment and the free beta-subunit. Elevated hCG concentrations not associated with are found in patients with gestational trophoblastic disease and choriocarcinoma as well as germ cell, ovarian, bladder, pancreas, stomach, lung and liver tumors. Performed by the [employer]an electrochemiluminescent immunoassay which is traceable to the 4th International Standard for hCG ([facility] 75/589). Results obtained with different test methods or kits cannot be used interchangeably. us Wagner [facility] BLOOD ORDERABLES Final Re sult Performing Organization Address [facility] Co de Phone Number HEALTHCARE [facility] [address] [place] [address] * TSH (11/02/2023 8:00 AM EDT) Thyroid Stimulating Hormone, Plasma 1.48 0.40 - 4.20 uIU/mL 11/02/2023 12:07 PM EDT [facility] Blood Venous blood specimen / Unknown Venipuncture / Unknown 11/02/2023 8:00 AM EDT 11/02/2023 8:46 AM EDT us Wagner [facility] BLOOD ORDERABLES Final Re sult Performing Organization Address [facility] de Phone Number [facility] [address] [place] [address] * T4, free (11/02/2023 8:00 AM EDT) Free T4, Plasma 1.3 0.8 - 1.7 ng/dL 11/02/2023 12:07 PM EDT [facility] Blood Venous blood specimen / Unknown Venipuncture / Unknown 11/02/2023 8:00 AM EDT 11/02/2023 8:46 AM EDT us Wagner [facility] BLOOD ORDERABLES Final Re sult Performing Organization Address [facility] de Phone Number [facility] [address] [place] [address] * (ABNORMAL) Lipid panel (11/02/2023 8:00 AM EDT) Cholesterol, Plasma 193 <200 mg/dL 11/02/2023 12:07 PM EDT [facility] Comment: Cholesterol Reference Range (age >17 years): Desirable <200 mg/dL Borderline 200 to 239 mg/dL Undesirable >239 mg/dL HDL 63 >=50 mg/dL 11/02/2023 12:07 PM EDT [facility] Comment: HDL Cholesterol Reference Ranges (age >17 years): Female, acceptable > or = 50 mg/dL Male, acceptable > or = 40 mg/dL Triglycerides, Plasma 147 <150 mg/dL 11/02/2023 12:07 PM EDT [facility] Comment: Triglyceride Reference Range (age >17 years): Desirable: <150 mg/dL Borderline high: 150 to 199 mg/dL High: 200 to 499 mg/dL Very high: >499 mg/dL Increased risk of pancreatitis: >1000 mg/dL Cholesterol/HDL Ratio 3 11/02/2023 12:07 PM EDT [facility] LDL, Calculated 105(H) <100 mg/dL 12:07 PM EDT [facility] Comment: LDL Cholesterol Reference Range (age >17 years): Optimal: <100 mg/dL Near or above optimal: 100 - 129 mg/dL Borderline high: 130 - 159 mg/dL High: 160 - 189 mg/dL Very high: >189 mg/dL LDL Cholesterol Reference Range (age <18 years): Desirable: <110 mg/dL Borderline: 110 - 129 mg/dL Undesirable: >130 mg/dL LDL Cholesterol is calculated using the Burgos/NIH equation. Fasting greater than or equal to 12 hours? Unknown 11/02/2023 12:07 PM EDT [facility] Blood Venous blood specimen / Unknown Venipuncture / Unknown 11/02/2023 8:00 AM EDT 11/02/2023 8:46 AM EDT [facility] BLOOD ORDERABLES Final Re sult [facility] [address] [place] [address] * (ABNORMAL) Comprehensive metabolic panel (11/02/2023 8:00 AM EDT) Pathologist [facility] Glucose, Plasma 78 74 - 99 mg/dL 11/02/2023 12:07 PM EDT [facility] BUN, Plasma 21 8 - 23 mg/dL 11/02/2023 12:07 PM EDT [facility] Creatinine, Plasma 1.05 0.60 - 1.10 mg/dL 11/02/2023 12:07 PM EDT [facility] BUN/Creatinine Ratio 20 11/02/2023 12:07 PM EDT [facility] Sodium, Plasma 144 136 - 145 mmol/L 11/02/2023 12:07 PM EDT [facility] Potassium, Plasma 4.2 3.7 - 4.8 mmol/L 11/02/2023 12:07 PM EDT [facility] Chloride, Plasma 111(H) 97 - 107 mmol/L 11/02/2023 12:07 PM EDT [facility] CO2, Plasma 24 22 - 29 mmol/L 11/02/2023 12:07 PM EDT [facility] Anion Gap 9 6 - 16 mmol/L 11/02/2023 12:07 PM EDT [facility] Total Calcium, Plasma 9.6 8.9 - 10.2 mg/dL 11/02/2023 12:07 PM EDT [facility] Total Protein 6.8 6.3 - 7.9 g/dL 11/02/2023 12:07 PM EDT [facility] Albumin, Plasma 4.0 3.5 - 5.2 g/dL 11/02/2023 12:07 PM EDT [facility] AST, Plasma 30 10 - 35 U/L 11/02/2023 12:07 PM EDT [facility] ALT, Plasma 16 10 - 35 U/L 11/02/2023 12:07 PM EDT [facility] Alkaline Phosphatase, Plasma 123 46 - 142 U/L 11/02/2023 12:07 PM EDT [facility] Total Bilirubin, Plasma 0.3 0.2 - 1.1 mg/dL 11/02/2023 12:07 PM EDT [facility] eGFRcr 59.5 mL/min/1.7 3m*2 11/02/2023 12:07 PM EDT [facility] Comment:Reported eGFRcr in m L/min/1.73m2 is based the CKD-EPI 2020 equation that does not use a race coefficient. Blood Venous blood specimen / Unknown Venipuncture / Unknown 11/02/2023 8:00 AM EDT 11/02/2023 8:46 AM EDT us Wagner [facility] BLOOD ORDERABLES Final Re sult [facility] [address] [place] [address] * (ABNORMAL) Vitamin D 25 Hydroxy (11/02/2023 8:00 AM EDT) Vitamin D 25 Hydroxy 7.5(L) 20.0 - 80.0 ng/mL 11/02/2023 12:28 PM EDT [facility]ALTH[facility] Blood Venous blood specimen / Unknown Venipuncture / Unknown 11/02/2023 8:00 AM EDT 11/02/2023 8:49 AM EDT Narrative [facility] - 11/02/2023 12:28 PM EDT Testing performed on Lang Waistband Setter Lock[employer]ch, standardized against NIST SRM 2972. When testing samples from patients whose predominant form of vitamin D is vitamin D2, such as patients receiving vitamin D2 supplementation, results that are subtherapeutic should be confirmed with another method, such as LC-MS/MS, before being used for patient management. Vitamin D, 25-Hydroxy reference range, age 18 years and up: Deficiency: <12 ng/mL Insufficiency: 12 to 19 ng/mL Sufficiency: 20 to 80 ng/mL Possible toxicity: >100 ng/mL us [facility] BLOOD ORDERABLES Final Re sult [facility] [address] [place] [address] documented in this encounter Visit Diagnoses Diagnosis Routine general medical examination at a health care facility documented in this encounter
--- OUTSIDE RECORDS SUMMARY | 2025-04-09 11:53 | XMS_ITS | Referral Summary ---
Author Organization [employer] ([place], [place], [place], [place], [place]) Address [address] [place] [address] Care Team Providers Care Wire Wheeler Name Role Phone Unavailable Primary Care Provider [...] Date Joe rded Speak language other than Polish at home Not on file 04/28/2023 Want [...] 09/13/2022 11:24 AM EDT Plan of Treatment [place] [address] [facility]
== END 2025-04-08 23:59 | disposition home or self-care (01) ==
LOC: LAB.DROPOF 04-09 11:50
PROVIDERS: PCP Student in an Organized Health Care Education/Training Program; Visit Provider Student in an Organized Health Care Education/Training Program
DX: R11.0 Nausea (principal); R10.9 Unspecified abdominal pain; R30.0 Dysuria; F41.1 Generalized anxiety disorder
CPT/HCPCS: 80053; 83690; 83735; 84439; 84443; 85025; 87086